=== PATIENT | male | born 1935 | race Asian ===

== ENCOUNTER 2018-06-17 13:13 | Inpatient (IN) | payer MEDICARE, MEDICAID ==
[~2018-06-17] VITALS: Ht 167.6 cm; Wt 68.0 kg
[2018-06-17 14:18] LABS: BASOPHILS % (AUTO) 0.5 % (0.0-2.0); EOSINOPHILS % (AUTO) 0.1 % (0.0-3.0); HEMATOCRIT 32.8 % (42.0-52.0); LYMPHOCYTES % (AUTO) 9.9 % (20.0-45.0); MEAN CORPUSCULAR VOLUME 93 FL (80-99); MONOCYTES % (AUTO) 6.6 % (1.0-10.0); NEUTROPHILS % (AUTO) 82.9 % (45.0-75.0); PLATELET COUNT 364 K/UL (150-450); RED BLOOD COUNT 3.53 M/UL (4.70-6.10); RED CELL DISTRIBUTION WIDTH 11.6 % (11.6-14.8); WHITE BLOOD COUNT 12.7 K/UL (4.8-10.8)
[2018-06-17 14:21] LABS: APPEARANCE,URINE SLIGHTLY CLOUDY; BILIRUBIN, URINE NEGATIVE (NEGATIVE); COLOR,URINE PALE YELLOW; GLUCOSE, URINE (UA) NEGATIVE (NEGATIVE); KETONES,URINE NEGATIVE (NEGATIVE); LEUKOCYTE ESTERASE ,URINE 3+ (NEGATIVE); NITRITE,URINE NEGATIVE (NEGATIVE); PH,URINE 6 (4.5-8.0); PROTEIN,URINE 3+ (NEGATIVE); UROBILINOGEN,URINE NORMAL MG/DL (0.0-1.0)
[2018-06-17 14:28] VITALS: BP 111/52
[2018-06-17 14:29] LABS: INR 1.2 (0.9-1.1)
--- NOTE | 2018-06-17 14:41 | Diagnostic Imaging Report ---
Indications: Syncope Technique: Spiral acquisitions obtained through the brain. Angled axial and coronal 5 x 5 mm slices were reconstructed. Total dose length product 1488.23 mGycm. CTDI vol(s) 70.38 mGy. Dose reduction achieved using automated exposure control Comparison: None. Findings: There is marked age-related enlargement of the ventricles and extra-axial CSF spaces. There is extensive periventricular deep white matter low-attenuation, consistent with chronic deep white matter ischemic change. No acute intracranial hemorrhage nor edema. No mass effect or midline shift. Visualized orbits and sinuses are unremarkable Impression: Chronic and age-related changes. Negative for acute intracranial bleed or mass effect The CT scanner at [facility] is accredited by the [employer] and the scans are performed using protocols designed to limit radiation exposure to as low as reasonably achievable to attain images of sufficient resolution adequate for diagnostic evaluation.
[2018-06-17 14:44] LABS: ALANINE AMINOTRANSFERASE 42 U/L (12-78); ALBUMIN 2.6 G/DL (3.4-5.0); ALBUMIN/GLOBULIN RATIO 0.5 (1.0-2.7); ALKALINE PHOSPHATASE 77 U/L (46-116); ANION GAP 12 mmol/L (5-15); ASPARTATE AMINO TRANSFERASE 38 U/L (15-37); BILIRUBIN,TOTAL 0.5 MG/DL (0.2-1.0); BLOOD UREA NITROGEN 76 mg/dL (7-18); CALCIUM 9.3 MG/DL (8.5-10.1); CARBON DIOXIDE 26 MMOL/L (21-32); CHLORIDE 101 MMOL/L (98-107); CKMB 1.9 NG/ML (0.0-3.6); CREATINE KINASE 112 U/L (26-308); CREATININE 2.3 MG/DL (0.55-1.30); POTASSIUM 2.8 MMOL/L (3.5-5.1); SODIUM 139 MMOL/L (136-145)
[2018-06-17] MEDS ORDERED: Meropenem 1 GM in NS 55 ML IVPB ONE (14:45)
[2018-06-17] MEDS ORDERED: cefTRIAXone 1 GM in NS 55 ML IVPB ONE (14:45)
[2018-06-17] MEDS ORDERED: POTASSIUM CHLO10 ME2 PO (15:18)
[2018-06-17] MEDS ORDERED: HYZAAR 100-12.1 EACH ORAL (15:18)
[2018-06-17] MEDS ORDERED: ISOSORBIDE MONO30 M1 PO (15:18)
[2018-06-17] MEDS ORDERED: ACETAMINOPHEN-1 EAC1 ORAL (15:18)
[2018-06-17] MEDS ORDERED: AMLODIPINE BESYL5 MG ORAL (15:18)
[2018-06-17] MEDS ORDERED: ABILIFY2 MG ORAL (15:18)
[2018-06-17] MEDS ORDERED: ATORVASTATIN CA20 MG ORAL (15:18)
[2018-06-17] MEDS ORDERED: FUROSEMIDE40 MG ORAL (15:18)
--- NOTE | 2018-06-17 15:24 | Emergency Room Report ---
History of Present Illness General Chief Complaint: Syncope Source: Patient, Medical Record, EMS Present Illness HPI This patient presents from a [facility]. Per EMS he had a syncopal episode at the [facility] facility. The patient himself has no specific complaints. He denies pain. He is alert but has dementia and is a very poor historian. Allergies: Coded Allergies: No Known Allergies (Unverified , 06/17/18) Patient History Past Medical History: see triage record, old chart reviewed, HTN, AFib, CVA/TIA , dementia Social History: Denies: smoking, alcohol use, drug use Reviewed Nursing Documentation: PMH: Agreed; PSxH: Agreed Nursing Documentation-PMH Hx Cardiac Problems: Yes - A-fib, hyperlipidemia Hx Hypertension: Yes Hx Neurological Problems: Yes - dementia Hx Cerebrovascular Accident: Yes - TIA Review of Systems All Other Systems: negative except mentioned in HPI Physical Exam Vital Signs Date Time Temp Pulse Resp B/P (MAP) Pulse Ox O2 Delivery O2 Flow Rate FiO2 06/17/18 13:15 98.2 68 14 82/54 97 Room Air 98.2 Sp02 EP Interpretation: reviewed, normal General Appearance: no apparent distress, alert, GCS 15, non-toxic, cachetic Head: normocephalic, atraumatic Eyes: bilateral eye normal inspection, bilateral eye PERRL ENT: hearing grossly normal, normal pharynx, no angioedema, normal voice Neck: full range of motion, supple/symm/no masses Respiratory: chest non-tender, lungs clear, normal breath sounds, no respiratory distress, no retraction, no accessory muscle use, speaking full sentences Cardiovascular #1: regular rate, rhythm, no edema Gastrointestinal: normal bowel sounds, non tender, soft, non-distended, no guarding, no rebound Rectal: deferred Musculoskeletal: back normal, normal range of motion, non-tender Neurologic: alert, responsive, motor strength/tone normal, sensory intact, speech normal, grossly normal Psychiatric: mood/affect normal, no suicidal/homicidal ideation Skin: warm/dry, well hydrated, other - See RN skin exam Medical Decision Making Diagnostic Impression: Primary Impression: Pyelonephritis Additional Impressions: Syncope Hypokalemia Lactic acid acidosis ER Course This frail elderly male had a syncopal episode and is found to have pyelonephritis. Given the patient's age and frailty, I felt that this patient should be admitted to the hospital for IV antibiotics. Initially, the patient' s blood pressure was low, however, this normalized with IV fluids. He is also given broad-spectrum antibiotics. CT of the head was unremarkable. He was found to have hypokalemia which is likely diet related. Troponin was in the indeterminate range. The patient is admitted for further evaluation, monitoring and treatment. Laboratory Tests Test 06/17/18 13:55 White Blood Count 12.7 K/UL (4.8-10.8) H Red Blood Count 3.53 M/UL (4.70-6.10) L Hemoglobin 11.0 G/DL (14.2-18.0) L Hematocrit 32.8 % (42.0-52.0) L Mean Corpuscular Volume 93 FL (80-99) Mean Corpuscular Hemoglobin 31.1 PG (27.0-31.0) H Mean Corpuscular Hemoglobin Concent 33.5 G/DL (32.0-36.0) Red Cell Distribution Width 11.6 % (11.6-14.8) Platelet Count 364 K/UL (150-450) Mean Platelet Volume 5.6 FL (6.5-10.1) L Neutrophils (%) (Auto) 82.9 % (45.0-75.0) H Lymphocytes (%) (Auto) 9.9 % (20.0-45.0) L Monocytes (%) (Auto) 6.6 % (1.0-10.0) Eosinophils (%) (Auto) 0.1 % (0.0-3.0) Basophils (%) (Auto) 0.5 % (0.0-2.0) Prothrombin Time 12.2 SEC (9.30-11.50) H Prothrombin Time INR 1.2 (0.9-1.1) H PTT 29 SEC (23-33) Urine Color Pale yellow Urine Appearance Slightly cloudy Urine pH 6 (4.5-8.0) Urine Specific [place] 1.010 (1.005-1.035) Urine Protein 3+ (NEGATIVE) H Urine Glucose (UA) Negative (NEGATIVE) Urine Ketones Negative (NEGATIVE) Urine Blood 5+ (NEGATIVE) H Urine Nitrite Negative (NEGATIVE) Urine Bilirubin Negative (NEGATIVE) Urine Urobilinogen Normal MG/DL (0.0-1.0) Urine Leukocyte Esterase 3+ (NEGATIVE) H Urine RBC 60-80 /HPF (0 - 0) H Urine WBC Tntc /HPF (0 - 0) H Urine Squamous Epithelial Cells Occasional /LPF Urine Bacteria Many /HPF (NONE) H Sodium Level 139 MMOL/L (136-145) Potassium Level 2.8 MMOL/L (3.5-5.1) L Chloride Level 101 MMOL/L (98-107) Carbon Dioxide Level 26 MMOL/L (21-32) Anion Gap 12 mmol/L (5-15) Blood Urea Nitrogen 76 mg/dL (7-18) H Creatinine 2.3 MG/DL (0.55-1.30) H Estimate Glomerular Filtration Rate mL/min (>60) Glucose Level 163 MG/DL (74-106) H Lactic Acid Level 2.30 mmol/L (0.4-2.0) H Calcium Level 9.3 MG/DL (8.5-10.1) Magnesium Level 2.0 MG/DL (1.8-2.4) Total Bilirubin 0.5 MG/DL (0.2-1.0) Aspartate Amino Transferase (AST) 38 U/L (15-37) H Alanine Aminotransferase (ALT) 42 U/L (12-78) Alkaline Phosphatase 77 U/L (46-116) Total Creatine Kinase 112 U/L (26-308) Creatine Kinase MB 1.9 NG/ML (0.0-3.6) Creatine Kinase MB Relative Index 1.6 Troponin I 0.014 ng/mL (0.000-0.056) Total Protein 7.8 G/DL (6.4-8.2) Albumin 2.6 G/DL (3.4-5.0) L Globulin 5.2 g/dL Albumin/Globulin Ratio 0.5 (1.0-2.7) L EKG Diagnostic Results Rate: normal Rhythm: NSR ST Segments: no acute changes Other Impression RBBB Rhythm Strip Diag. Results EP Interpretation: yes Rate: 60's Rhythm: NSR, no PVC's, no ectopy Chest X-Ray Diagnostic Results Chest X-Ray Diagnostic Results : Chest X-Ray Ordered: Yes # of Views/Limited/Complete: 1 View Indication: Other - syncope Interpretation: no consolidation, no effusion, no pneumothorax, no acute cardiopulmonary disease Impression: No acute disease Electronically Signed by: M.Colianno CT/MRI/US Diagnostic Results CT/MRI/US Diagnostic Results : Imaging Test Ordered: CT head Impression No acute findings. Specifically no intracranial bleed, mass effect or edema. See official report. Last Vital Signs Date Time Temp Pulse Resp B/P (MAP) Pulse Ox O2 Delivery O2 Flow Rate FiO2 06/17/18 14:28 98.2 73 14 111/52 98 Room Air 98.2 Status: improved Disposition: ADMITTED INPATIENT Condition: Serious Referrals: NON PHYSICIAN (PCP) Margareth Mackay DO Jun 17, 2018 15:24
--- NOTE | 2018-06-17 16:13 | Diagnostic Imaging Report ---
Indication: Shortness of breath Technique: One view of the chest Comparison: none Findings: No acute infiltrates, effusions, or congestion. Tortuous calcified aorta. Borderline enlarged heart size. Upper mediastinum unremarkable. Impression: No acute process. Borderline cardiomegaly
[2018-06-17 17:05] VITALS: BP 134/67
[2018-06-17] MEDS ORDERED: Morphine Sulfate 2mg/ml Inj IVP PRN (17:45)
[2018-06-17] MEDS ORDERED: LORazepam Inj 2mg/ml 1ml IV PRN (17:45)
[2018-06-17] MEDS ORDERED: Mylanta II UD 30ml ORAL PRN (17:45)
[2018-06-17] MEDS ORDERED: Albuterol/Ipratropium 3ml neb HHN PRN (17:45)
[2018-06-17] MEDS ORDERED: Nitroglycerin Subl 0.4mg tab SL PRN (17:45)
[2018-06-17] MEDS ORDERED: Miralax 17gm pkt ORAL PRN (17:45)
[2018-06-17 17:55] VITALS: BP 129/60
[2018-06-17 19:34] VITALS: BP_SYST 116; BP_SYST 142; BP_DIAS 72; BP_DIAS 84
[2018-06-17] MEDS: Atorvastatin 20mg tab ORAL SCH (20:52)
[2018-06-17] MEDS: Heparin 5000 units/ml inj SUBQ SCH (20:53)
--- NOTE | 2018-06-17 23:11 | Consultation ---
History of Present Illness General Chief Complaint: Syncope Present Illness HPI 83 yo male brought in from his halfway after an episode of syncope and was found to have UTI. the pt is a poor hx the pt is confused and has waxing and waning of consciousness. the pt has poor memory Allergies: Coded Allergies: No Known Allergies (Unverified , 06/17/18) Medication History Scheduled Amlodipine Besylate* (Amlodipine Besylate*), 5 MG ORAL DAILY, (Reported) Amoxicillin* (Amoxil*), 500 MG ORAL EVERY 8 HOURS Aripiprazole* (Abilify*), 2 MG ORAL DAILY, (Reported) Atorvastatin Calcium* (Atorvastatin Calcium*), 20 MG ORAL BEDTIME, (Reported) Furosemide* (Lasix*), 40 MG ORAL DAILY, (Reported) Isosorbide Mononitrate (Isosorbide Mononitrate Er), 30 MG PO DAILY, (Reported) Losartan/Hydrochlorothiazide 100-12.5 Tablet (Hyzaar 100-12.5 Tablet), 1 TAB ORAL DAILY, (Reported) Potassium Chloride (Potassium Chloride), 20 MEQ PO DAILY, (Reported) Scheduled PRN Acetaminophen With Codeine (T#3) (Tylenol #3 Tab*), 1 TAB ORAL Q6H PRN for For Pain, (Reported) Patient History Limited by: medical condition History Provided By: Patient, Medical Record Healthcare decision maker Resuscitation status Full Code Advanced Directive on File Review of Systems Psychiatric: Reports: prior hx, emotional problems, hallucinations Physical Exam General Appearance: no apparent distress, alert, confused, agitated Last 24 Hour Vital Signs Date Time Temp Pulse Resp B/P (MAP) Pulse Ox O2 Delivery O2 Flow Rate FiO2 06/17/18 22:59 Room Air 06/17/18 19:42 86 18 Room Air 21 06/17/18 19:34 97.7 78 18 116/72 (87) 99 97.7 06/17/18 18:07 Room Air 06/17/18 17:55 97.2 67 20 129/60 (83) 95 97.2 06/17/18 17:40 98.2 83 15 134/67 98 Room Air 98.2 06/17/18 17:05 98.2 83 15 134/67 98 Room Air 98.2 06/17/18 14:28 98.2 73 14 111/52 98 Room Air 98.2 06/17/18 13:15 98.2 68 14 82/54 97 Room Air 98.2 Laboratory Tests Test 06/17/18 13:55 06/17/18 16:20 White Blood Count 12.7 K/UL (4.8-10.8) H Red Blood Count 3.53 M/UL (4.70-6.10) L Hemoglobin 11.0 G/DL (14.2-18.0) L Hematocrit 32.8 % (42.0-52.0) L Mean Corpuscular Volume 93 FL (80-99) Mean Corpuscular Hemoglobin 31.1 PG (27.0-31.0) H Mean Corpuscular Hemoglobin Concent 33.5 G/DL (32.0-36.0) Red Cell Distribution Width 11.6 % (11.6-14.8) Platelet Count 364 K/UL (150-450) Mean Platelet Volume 5.6 FL (6.5-10.1) L Neutrophils (%) (Auto) 82.9 % (45.0-75.0) H Lymphocytes (%) (Auto) 9.9 % (20.0-45.0) L Monocytes (%) (Auto) 6.6 % (1.0-10.0) Eosinophils (%) (Auto) 0.1 % (0.0-3.0) Basophils (%) (Auto) 0.5 % (0.0-2.0) Prothrombin Time 12.2 SEC (9.30-11.50) H Prothromb Time International Ratio 1.2 (0.9-1.1) H Activated Partial Thromboplast Time 29 SEC (23-33) Urine Color Pale yellow Urine Appearance Slightly cloudy Urine pH 6 (4.5-8.0) Urine Specific [place] 1.010 (1.005-1.035) Urine Protein 3+ (NEGATIVE) H Urine Glucose (UA) Negative (NEGATIVE) Urine Ketones Negative (NEGATIVE) Urine Blood 5+ (NEGATIVE) H Urine Nitrite Negative (NEGATIVE) Urine Bilirubin Negative (NEGATIVE) Urine Urobilinogen Normal MG/DL (0.0-1.0) Urine Leukocyte Esterase 3+ (NEGATIVE) H Urine RBC 60-80 /HPF (0 - 0) H Urine WBC Tntc /HPF (0 - 0) H Urine Squamous Epithelial Cells Occasional /LPF Urine Bacteria Many /HPF (NONE) H Sodium Level 139 MMOL/L (136-145) Potassium Level 2.8 MMOL/L (3.5-5.1) L Chloride Level 101 MMOL/L (98-107) Carbon Dioxide Level 26 MMOL/L (21-32) Anion Gap 12 mmol/L (5-15) Blood Urea Nitrogen 76 mg/dL (7-18) H Creatinine 2.3 MG/DL (0.55-1.30) H Estimat Glomerular Filtration Rate mL/min (>60) Glucose Level 163 MG/DL (74-106) H Lactic Acid Level 2.30 mmol/L (0.4-2.0) H 1.40 mmol/L (0.66-2.22) Calcium Level 9.3 MG/DL (8.5-10.1) Magnesium Level 2.0 MG/DL (1.8-2.4) Total Bilirubin 0.5 MG/DL (0.2-1.0) Aspartate Amino Transf (AST/SGOT) 38 U/L (15-37) H Alanine Aminotransferase (ALT/SGPT) 42 U/L (12-78) Alkaline Phosphatase 77 U/L (46-116) Total Creatine Kinase 112 U/L (26-308) Creatine Kinase MB 1.9 NG/ML (0.0-3.6) Creatine Kinase MB Relative Index 1.6 Troponin I 0.014 ng/mL (0.000-0.056) Total Protein 7.8 G/DL (6.4-8.2) Albumin 2.6 G/DL (3.4-5.0) L Globulin 5.2 g/dL Albumin/Globulin Ratio 0.5 (1.0-2.7) L Height (Feet): 5 Height (Inches): 6.00 Weight (Pounds): 150 Medications Current Medications Medications (Trade) Dose Ordered Sig/Marleni Route PRN Reason Start Time Stop Time Status Last Admin Dose Admin Acetaminophen (Tylenol) 650 mg Q4H PRN ORAL fever (temp>100.5F) 06/17/18 17:45 07/17/18 17:44 Al Hydroxide/Mg Hydroxide (Mylanta II) 30 ml Q6H PRN ORAL dyspepsia 06/17/18 17:45 07/17/18 17:44 Albuterol/ Ipratropium (Albuterol/ Ipratropium) 3 ml Q4H PRN HHN Shortness of Breath 06/17/18 17:45 06/22/18 17:44 Amlodipine Besylate (Norvasc) 5 mg DAILY ORAL 06/18/18 09:00 07/18/18 08:59 Aripiprazole (Abilify) 2 mg DAILY ORAL 06/18/18 09:00 07/18/18 08:59 Atorvastatin Calcium (Lipitor) 20 mg BEDTIME ORAL 06/17/18 21:00 07/17/18 20:59 06/17/18 20:52 Clonidine HCl (Catapres Tab) 0.1 mg Q4H PRN ORAL For High Blood Pressure 06/17/18 17:45 07/17/18 17:44 Dextrose (Dextrose 50%) 25 ml STAT PRN IV Hypoglycemia 06/17/18 17:45 07/17/18 17:44 Dextrose (Dextrose 50%) 50 ml STAT PRN IV Hypoglycemia 06/17/18 17:45 07/17/18 17:44 Heparin Sodium (Porcine) (Heparin 5000 units/ml) 5,000 units EVERY 12 HOURS SUBQ 06/17/18 21:00 07/17/18 20:59 06/17/18 20:53 Isosorbide Mononitrate (Imdur) 30 mg DAILY ORAL 06/18/18 09:00 07/18/18 08:59 Lorazepam (Ativan 2mg/ml 1ml) 0.5 mg Q4H PRN IV For Anxiety 06/17/18 17:45 06/24/18 17:44 Morphine Sulfate (Morphine Sulfate) 1 mg Q4H PRN IVP For Pain 7-10 06/17/18 17:45 06/24/18 17:44 Nitroglycerin (Ntg) 0.4 mg Q5M X 3 DOSES PRN SL Prn Chest Pain 06/17/18 17:45 07/17/18 17:44 Ondansetron HCl (Zofran) 4 mg Q6H PRN IVP Nausea & Vomiting 06/17/18 17:45 07/17/18 17:44 Polyethylene Glycol (Miralax) 17 gm HSPRN PRN ORAL Constipation 06/17/18 17:45 07/17/18 17:44 Temazepam (Restoril) 15 mg HSPRN PRN ORAL Insomnia 06/17/18 17:45 06/24/18 17:44 06/17/18 20:52 Assessment/Plan Assessment/Plan 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
[2018-06-18 01:07] VITALS: BP 137/86
[2018-06-18 04:16] VITALS: BP 125/75
[2018-06-18 07:08] LABS: BASOPHILS % (AUTO) 0.4 % (0.0-2.0); EOSINOPHILS % (AUTO) 0.4 % (0.0-3.0); HEMATOCRIT 33.5 % (42.0-52.0); HEMOGLOBIN 11.4 G/DL (14.2-18.0); LYMPHOCYTES % (AUTO) 13.6 % (20.0-45.0); MEAN CORPUSCULAR VOLUME 93 FL (80-99); MONOCYTES % (AUTO) 6.6 % (1.0-10.0); NEUTROPHILS % (AUTO) 79.1 % (45.0-75.0); PLATELET COUNT 369 K/UL (150-450); RED BLOOD COUNT 3.59 M/UL (4.70-6.10); RED CELL DISTRIBUTION WIDTH 11.6 % (11.6-14.8); WHITE BLOOD COUNT 13.7 K/UL (4.8-10.8)
[2018-06-18 07:30] LABS: INR 1.1 (0.9-1.1)
[2018-06-18 07:49] LABS: ALANINE AMINOTRANSFERASE 45 U/L (12-78); ALBUMIN 2.5 G/DL (3.4-5.0); ALBUMIN/GLOBULIN RATIO 0.5 (1.0-2.7); ALKALINE PHOSPHATASE 78 U/L (46-116); ANION GAP 10 mmol/L (5-15); ASPARTATE AMINO TRANSFERASE 32 U/L (15-37); BILIRUBIN,TOTAL 0.4 MG/DL (0.2-1.0); BLOOD UREA NITROGEN 57 mg/dL (7-18); CALCIUM 9.1 MG/DL (8.5-10.1); CARBON DIOXIDE 28 MMOL/L (21-32); CHLORIDE 107 MMOL/L (98-107); CHOLESTEROL 107 MG/DL (< 200); CREATININE 1.7 MG/DL (0.55-1.30); HDL CHOLESTEROL 28 MG/DL (40-60); POTASSIUM 2.9 MMOL/L (3.5-5.1); SODIUM 144 MMOL/L (136-145); TRIGLYCERIDES 92 MG/DL (30-150)
[2018-06-18 08:00] VITALS: BP 120/74
[2018-06-18] MEDS: Imdur 30mg tab ORAL SCH (08:19)
[2018-06-18] MEDS: ARIPiprazole 2mg tab ORAL SCH (08:19)
[2018-06-18] MEDS: Heparin 5000 units/ml inj SUBQ SCH ×2 (08:20→21:45)
--- NOTE | 2018-06-18 11:35 | Consultation ---
History of Present Illness General Date patient seen: Jun 18, 2018 Chief Complaint: Syncope Present Illness HPI 83 year old male with hx of HTN, AFib, CVA/TIA, dementia, from an assisted living presented to [facility] with [facility] of syncopal episode at the facility. The patient himself has no specific complaints. He denies pain. He is alert but has dementia and is a very poor historian. He was in renal failure and leukocytosis as well. Allergies: Coded Allergies: No Known Allergies (Unverified , 06/17/18) Medication History Scheduled Amlodipine Besylate* (Amlodipine Besylate*), 5 MG ORAL DAILY, (Reported) Aripiprazole* (Abilify*), 2 MG ORAL DAILY, (Reported) Atorvastatin Calcium* (Atorvastatin Calcium*), 20 MG ORAL BEDTIME, (Reported) Furosemide* (Lasix*), 40 MG ORAL DAILY, (Reported) Isosorbide Mononitrate (Isosorbide Mononitrate Er), 30 MG PO DAILY, (Reported) Losartan/Hydrochlorothiazide 100-12.5 Tablet (Hyzaar 100-12.5 Tablet), 1 TAB ORAL DAILY, (Reported) Potassium Chloride (Potassium Chloride), 20 MEQ PO DAILY, (Reported) Scheduled PRN Acetaminophen With Codeine (T#3) (Tylenol #3 Tab*), 1 TAB ORAL Q6H PRN for For Pain, (Reported) Patient History Healthcare decision maker Resuscitation status Full Code Advanced Directive on File Past Medical/Surgical History Past Medical/Surgical History: (1) Hypertension (2) Dementia (3) CVA (cerebral vascular accident) Review of Systems Constitutional: Reports: malaise, weakness ENT: Reports: no symptoms Physical Exam General Appearance: cachetic Lines, tubes and drains: peripheral HEENT: normocephalic, atraumatic Neck: non-tender, normal alignment Respiratory/Chest: chest wall non-tender, lungs clear Cardiovascular/Chest: normal peripheral pulses Abdomen: normal bowel sounds Genitourinary/Rectal: normal genital exam, normal rectal exam Skin Exam: normal pigmentation 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 Last 24 Hour Vital Signs Date Time Temp Pulse Resp B/P (MAP) Pulse Ox O2 Delivery O2 Flow Rate FiO2 06/18/18 09:00 Room Air 06/18/18 08:19 120/74 06/18/18 08:19 79 120/74 06/18/18 08:00 97.5 79 20 120/74 (89) 99 97.5 06/18/18 08:00 69 06/18/18 04:16 98.0 60 18 125/75 (92) 98 98.0 06/18/18 03:51 69 06/18/18 01:07 97.0 60 18 137/86 (103) 98 97.0 06/17/18 23:35 68 06/17/18 22:59 Room Air 06/17/18 19:46 82 06/17/18 19:42 86 18 Room Air 21 06/17/18 19:34 97.7 78 18 116/72 (87) 99 97.7 06/17/18 18:07 Room Air 06/17/18 17:55 97.2 67 20 129/60 (83) 95 97.2 06/17/18 17:40 98.2 83 15 134/67 98 Room Air 98.2 06/17/18 17:05 98.2 83 15 134/67 98 Room Air 98.2 06/17/18 14:28 98.2 73 14 111/52 98 Room Air 98.2 06/17/18 13:15 98.2 68 14 82/54 97 Room Air 98.2 Intake and Output 06/17/18 06/18/18 19:00 07:00 Intake Total 175 ml Balance 175 ml Intake Oral 120 ml IV Total 55 ml # Voids 1 Laboratory Tests Test 06/17/18 13:55 06/17/18 16:20 06/18/18 06:23 White Blood Count 12.7 K/UL (4.8-10.8) H 13.7 K/UL (4.8-10.8) H Red Blood Count 3.53 M/UL (4.70-6.10) L 3.59 M/UL (4.70-6.10) L Hemoglobin 11.0 G/DL (14.2-18.0) L 11.4 G/DL (14.2-18.0) L Hematocrit 32.8 % (42.0-52.0) L 33.5 % (42.0-52.0) L Mean Corpuscular Volume 93 FL (80-99) 93 FL (80-99) Mean Corpuscular Hemoglobin 31.1 PG (27.0-31.0) H 31.9 PG (27.0-31.0) H Mean Corpuscular Hemoglobin Concent 33.5 G/DL (32.0-36.0) 34.2 G/DL (32.0-36.0) Red Cell Distribution Width 11.6 % (11.6-14.8) 11.6 % (11.6-14.8) Platelet Count 364 K/UL (150-450) 369 K/UL (150-450) Mean Platelet Volume 5.6 FL (6.5-10.1) L 5.6 FL (6.5-10.1) L Neutrophils (%) (Auto) 82.9 % (45.0-75.0) H 79.1 % (45.0-75.0) H Lymphocytes (%) (Auto) 9.9 % (20.0-45.0) L 13.6 % (20.0-45.0) L Monocytes (%) (Auto) 6.6 % (1.0-10.0) 6.6 % (1.0-10.0) Eosinophils (%) (Auto) 0.1 % (0.0-3.0) 0.4 % (0.0-3.0) Basophils (%) (Auto) 0.5 % (0.0-2.0) 0.4 % (0.0-2.0) Prothrombin Time 12.2 SEC (9.30-11.50) H 11.9 SEC (9.30-11.50) H Prothromb Time International Ratio 1.2 (0.9-1.1) H 1.1 (0.9-1.1) Activated Partial Thromboplast Time 29 SEC (23-33) 30 SEC (23-33) Urine Color Pale yellow Urine Appearance Slightly cloudy Urine pH 6 (4.5-8.0) Urine Specific [place] 1.010 (1.005-1.035) Urine Protein 3+ (NEGATIVE) H Urine Glucose (UA) Negative (NEGATIVE) Urine Ketones Negative (NEGATIVE) Urine Blood 5+ (NEGATIVE) H Urine Nitrite Negative (NEGATIVE) Urine Bilirubin Negative (NEGATIVE) Urine Urobilinogen Normal MG/DL (0.0-1.0) Urine Leukocyte Esterase 3+ (NEGATIVE) H Urine RBC 60-80 /HPF (0 - 0) H Urine WBC Tntc /HPF (0 - 0) H Urine Squamous Epithelial Cells Occasional /LPF Urine Bacteria Many /HPF (NONE) H Sodium Level 139 MMOL/L (136-145) 144 MMOL/L (136-145) Potassium Level 2.8 MMOL/L (3.5-5.1) L 2.9 MMOL/L (3.5-5.1) L Chloride Level 101 MMOL/L (98-107) 107 MMOL/L (98-107) Carbon Dioxide Level 26 MMOL/L (21-32) 28 MMOL/L (21-32) Anion Gap 12 mmol/L (5-15) 10 mmol/L (5-15) Blood Urea Nitrogen 76 mg/dL (7-18) H 57 mg/dL (7-18) H Creatinine 2.3 MG/DL (0.55-1.30) H 1.7 MG/DL (0.55-1.30) H Estimat Glomerular Filtration Rate mL/min (>60) mL/min (>60) Glucose Level 163 MG/DL (74-106) H 114 MG/DL (74-106) H Lactic Acid Level 2.30 mmol/L (0.4-2.0) H 1.40 mmol/L (0.66-2.22) Calcium Level 9.3 MG/DL (8.5-10.1) 9.1 MG/DL (8.5-10.1) Magnesium Level 2.0 MG/DL (1.8-2.4) Total Bilirubin 0.5 MG/DL (0.2-1.0) 0.4 MG/DL (0.2-1.0) Aspartate Amino Transf (AST/SGOT) 38 U/L (15-37) H 32 U/L (15-37) Alanine Aminotransferase (ALT/SGPT) 42 U/L (12-78) 45 U/L (12-78) Alkaline Phosphatase 77 U/L (46-116) 78 U/L (46-116) Total Creatine Kinase 112 U/L (26-308) Creatine Kinase MB 1.9 NG/ML (0.0-3.6) Creatine Kinase MB Relative Index 1.6 Troponin I 0.014 ng/mL (0.000-0.056) Total Protein 7.8 G/DL (6.4-8.2) 7.9 G/DL (6.4-8.2) Albumin 2.6 G/DL (3.4-5.0) L 2.5 G/DL (3.4-5.0) L Globulin 5.2 g/dL 5.4 g/dL Albumin/Globulin Ratio 0.5 (1.0-2.7) L 0.5 (1.0-2.7) L Triglycerides Level 92 MG/DL (30-150) Cholesterol Level 107 MG/DL (< 200) LDL Cholesterol 66 mg/dL (<100) HDL Cholesterol 28 MG/DL (40-60) L Cholesterol/HDL Ratio 3.8 (3.3-4.4) Thyroid Stimulating Hormone (TSH) 0.953 uiU/mL (0.358-3.740) Microbiology Date/Time Source Procedure Growth Status 06/17/18 13:55 Urine,Clean Catch Urine Culture - Preliminary Gram Negative Bacillus 1 Resulted Height (Feet): 5 Height (Inches): 6.00 Weight (Pounds): 150 Medications Current Medications Medications (Trade) Dose Ordered Sig/Marleni Route PRN Reason Start Time Stop Time Status Last Admin Dose Admin Acetaminophen (Tylenol) 650 mg Q4H PRN ORAL fever (temp>100.5F) 06/17/18 17:45 07/17/18 17:44 Al Hydroxide/Mg Hydroxide (Mylanta II) 30 ml Q6H PRN ORAL dyspepsia 06/17/18 17:45 07/17/18 17:44 Albuterol/ Ipratropium (Albuterol/ Ipratropium) 3 ml Q4H PRN HHN Shortness of Breath 06/17/18 17:45 06/22/18 17:44 Amlodipine Besylate (Norvasc) 5 mg DAILY ORAL 06/18/18 09:00 07/18/18 08:59 06/18/18 08:19 Aripiprazole (Abilify) 2 mg DAILY ORAL 06/18/18 09:00 07/18/18 08:59 06/18/18 08:19 Atorvastatin Calcium (Lipitor) 20 mg BEDTIME ORAL 06/17/18 21:00 07/17/18 20:59 06/17/18 20:52 Clonidine HCl (Catapres Tab) 0.1 mg Q4H PRN ORAL For High Blood Pressure 06/17/18 17:45 07/17/18 17:44 Dextrose (Dextrose 50%) 25 ml STAT PRN IV Hypoglycemia 06/17/18 17:45 07/17/18 17:44 Dextrose (Dextrose 50%) 50 ml STAT PRN IV Hypoglycemia 06/17/18 17:45 07/17/18 17:44 Heparin Sodium (Porcine) (Heparin 5000 units/ml) 5,000 units EVERY 12 HOURS SUBQ 06/17/18 21:00 07/17/18 20:59 06/18/18 08:20 Isosorbide Mononitrate (Imdur) 30 mg DAILY ORAL 06/18/18 09:00 07/18/18 08:59 06/18/18 08:19 Lorazepam (Ativan 2mg/ml 1ml) 0.5 mg Q4H PRN IV For Anxiety 06/17/18 17:45 06/24/18 17:44 Morphine Sulfate (Morphine Sulfate) 1 mg Q4H PRN IVP For Pain 7-06/17/18 17:45 06/24/18 17:44 Nitroglycerin (Ntg) 0.4 mg Q5M X 3 DOSES PRN SL Prn Chest Pain 06/17/18 17:45 07/17/18 17:44 Ondansetron HCl (Zofran) 4 mg Q6H PRN IVP Nausea & Vomiting 06/17/18 17:45 07/17/18 17:44 Polyethylene Glycol (Miralax) 17 gm HSPRN PRN ORAL Constipation 06/17/18 17:45 07/17/18 17:44 Temazepam (Restoril) 15 mg HSPRN PRN ORAL Insomnia 06/17/18 17:45 06/24/18 17:44 06/17/18 20:52 Assessment/Plan Problem List: (1) Pyelonephritis ICD Codes: N12 - Tubulo-interstitial nephritis, not specified as acute or chronic SNOMED: 93437648 (2) Dehydration ICD Codes: E86.0 - Dehydration SNOMED: 83940619 (3) CVA (cerebral vascular accident) ICD Codes: I63.9 - Cerebral infarction, unspecified SNOMED: 278522888 (4) Hypokalemia ICD Codes: E87.6 - Hypokalemia SNOMED: 53781013 (5) Dementia ICD Codes: F03.90 - Unspecified dementia without behavioral disturbance SNOMED: 84614331 (6) Hypertension ICD Codes: I10 - Essential (primary) hypertension SNOMED: 89233577 Assessment/Plan iv hydration iv abx check urine cultures k supplement check electrolytes one more time today ID evaluation dvt prophylaxis swallow study Jose Rooney MD Jun 18, 2018 11:35
[2018-06-18 12:00] VITALS: BP 113/61
--- NOTE | 2018-06-18 12:45 | Consultation ---
History of Present Illness General Date patient seen: Jun 18, 2018 Chief Complaint: Syncope Reason for Consultation: UTI Present Illness HPI Mr. Batista is a 83 yo male brought in from his custodial after an episode of syncope and was found to have UTI. Patient reports no complaints and denies Dysuria and Fever but is a poor historian. Majority of history was obtained from the chart. In the ED he was afebrile but had leukocytosis and a positive UA. ID was consulted for UTI. PMHx/ PSHx HTN A.fib CVA Dementia SocHx No E/T/D FamHx Non- contributory Allergies: Coded Allergies: No Known Allergies (Unverified , 06/17/18) Medication History Scheduled Amlodipine Besylate* (Amlodipine Besylate*), 5 MG ORAL DAILY, (Reported) Aripiprazole* (Abilify*), 2 MG ORAL DAILY, (Reported) Atorvastatin Calcium* (Atorvastatin Calcium*), 20 MG ORAL BEDTIME, (Reported) Furosemide* (Lasix*), 40 MG ORAL DAILY, (Reported) Isosorbide Mononitrate (Isosorbide Mononitrate Er), 30 MG PO DAILY, (Reported) Losartan/Hydrochlorothiazide 100-12.5 Tablet (Hyzaar 100-12.5 Tablet), 1 TAB ORAL DAILY, (Reported) Potassium Chloride (Potassium Chloride), 20 MEQ PO DAILY, (Reported) Scheduled PRN Acetaminophen With Codeine (T#3) (Tylenol #3 Tab*), 1 TAB ORAL Q6H PRN for For Pain, (Reported) Patient History Healthcare decision maker Resuscitation status Full Code Advanced Directive on File Review of Systems All Other Systems: negative except mentioned in HPI ROS Narrative Unable to fully obtain as patient with AMS. Physical Exam Last 24 Hour Vital Signs Date Time Temp Pulse Resp B/P (MAP) Pulse Ox O2 Delivery O2 Flow Rate FiO2 06/18/18 12:00 97.2 73 20 113/61 (78) 99 97.2 06/18/18 09:00 Room Air 06/18/18 08:19 120/74 06/18/18 08:19 79 120/74 06/18/18 08:00 97.5 79 20 120/74 (89) 99 97.5 06/18/18 08:00 69 06/18/18 04:16 98.0 60 18 125/75 (92) 98 98.0 06/18/18 03:51 69 06/18/18 01:07 97.0 60 18 137/86 (103) 98 97.0 06/17/18 23:35 68 06/17/18 22:59 Room Air 06/17/18 19:46 82 06/17/18 19:42 86 18 Room Air 21 06/17/18 19:34 97.7 78 18 116/72 (87) 99 97.7 06/17/18 18:07 Room Air 06/17/18 17:55 97.2 67 20 129/60 (83) 95 97.2 06/17/18 17:40 98.2 83 15 134/67 98 Room Air 98.2 06/17/18 17:05 98.2 83 15 134/67 98 Room Air 98.2 06/17/18 14:28 98.2 73 14 111/52 98 Room Air 98.2 06/17/18 13:15 98.2 68 14 82/54 97 Room Air 98.2 Intake and Output 06/17/18 06/18/18 18:59 06:59 Intake Total 55 ml 120 ml Balance 55 ml 120 ml Intake Oral 120 ml IV Total 55 ml # Voids 1 Laboratory Tests Test 06/17/18 13:55 06/17/18 16:20 06/18/18 06:23 White Blood Count 12.7 K/UL (4.8-10.8) H 13.7 K/UL (4.8-10.8) H Red Blood Count 3.53 M/UL (4.70-6.10) L 3.59 M/UL (4.70-6.10) L Hemoglobin 11.0 G/DL (14.2-18.0) L 11.4 G/DL (14.2-18.0) L Hematocrit 32.8 % (42.0-52.0) L 33.5 % (42.0-52.0) L Mean Corpuscular Volume 93 FL (80-99) 93 FL (80-99) Mean Corpuscular Hemoglobin 31.1 PG (27.0-31.0) H 31.9 PG (27.0-31.0) H Mean Corpuscular Hemoglobin Concent 33.5 G/DL (32.0-36.0) 34.2 G/DL (32.0-36.0) Red Cell Distribution Width 11.6 % (11.6-14.8) 11.6 % (11.6-14.8) Platelet Count 364 K/UL (150-450) 369 K/UL (150-450) Mean Platelet Volume 5.6 FL (6.5-10.1) L 5.6 FL (6.5-10.1) L Neutrophils (%) (Auto) 82.9 % (45.0-75.0) H 79.1 % (45.0-75.0) H Lymphocytes (%) (Auto) 9.9 % (20.0-45.0) L 13.6 % (20.0-45.0) L Monocytes (%) (Auto) 6.6 % (1.0-10.0) 6.6 % (1.0-10.0) Eosinophils (%) (Auto) 0.1 % (0.0-3.0) 0.4 % (0.0-3.0) Basophils (%) (Auto) 0.5 % (0.0-2.0) 0.4 % (0.0-2.0) Prothrombin Time 12.2 SEC (9.30-11.50) H 11.9 SEC (9.30-11.50) H Prothromb Time International Ratio 1.2 (0.9-1.1) H 1.1 (0.9-1.1) Activated Partial Thromboplast Time 29 SEC (23-33) 30 SEC (23-33) Urine Color Pale yellow Urine Appearance Slightly cloudy Urine pH 6 (4.5-8.0) Urine Specific [place] 1.010 (1.005-1.035) Urine Protein 3+ (NEGATIVE) H Urine Glucose (UA) Negative (NEGATIVE) Urine Ketones Negative (NEGATIVE) Urine Blood 5+ (NEGATIVE) H Urine Nitrite Negative (NEGATIVE) Urine Bilirubin Negative (NEGATIVE) Urine Urobilinogen Normal MG/DL (0.0-1.0) Urine Leukocyte Esterase 3+ (NEGATIVE) H Urine RBC 60-80 /HPF (0 - 0) H Urine WBC Tntc /HPF (0 - 0) H Urine Squamous Epithelial Cells Occasional /LPF Urine Bacteria Many /HPF (NONE) H Sodium Level 139 MMOL/L (136-145) 144 MMOL/L (136-145) Potassium Level 2.8 MMOL/L (3.5-5.1) L 2.9 MMOL/L (3.5-5.1) L Chloride Level 101 MMOL/L (98-107) 107 MMOL/L (98-107) Carbon Dioxide Level 26 MMOL/L (21-32) 28 MMOL/L (21-32) Anion Gap 12 mmol/L (5-15) 10 mmol/L (5-15) Blood Urea Nitrogen 76 mg/dL (7-18) H 57 mg/dL (7-18) H Creatinine 2.3 MG/DL (0.55-1.30) H 1.7 MG/DL (0.55-1.30) H Estimat Glomerular Filtration Rate mL/min (>60) mL/min (>60) Glucose Level 163 MG/DL (74-106) H 114 MG/DL (74-106) H Lactic Acid Level 2.30 mmol/L (0.4-2.0) H 1.40 mmol/L (0.66-2.22) Calcium Level 9.3 MG/DL (8.5-10.1) 9.1 MG/DL (8.5-10.1) Magnesium Level 2.0 MG/DL (1.8-2.4) Total Bilirubin 0.5 MG/DL (0.2-1.0) 0.4 MG/DL (0.2-1.0) Aspartate Amino Transf (AST/SGOT) 38 U/L (15-37) H 32 U/L (15-37) Alanine Aminotransferase (ALT/SGPT) 42 U/L (12-78) 45 U/L (12-78) Alkaline Phosphatase 77 U/L (46-116) 78 U/L (46-116) Total Creatine Kinase 112 U/L (26-308) Creatine Kinase MB 1.9 NG/ML (0.0-3.6) Creatine Kinase MB Relative Index 1.6 Troponin I 0.014 ng/mL (0.000-0.056) Total Protein 7.8 G/DL (6.4-8.2) 7.9 G/DL (6.4-8.2) Albumin 2.6 G/DL (3.4-5.0) L 2.5 G/DL (3.4-5.0) L Globulin 5.2 g/dL 5.4 g/dL Albumin/Globulin Ratio 0.5 (1.0-2.7) L 0.5 (1.0-2.7) L Triglycerides Level 92 MG/DL (30-150) Cholesterol Level 107 MG/DL (< 200) LDL Cholesterol 66 mg/dL (<100) HDL Cholesterol 28 MG/DL (40-60) L Cholesterol/HDL Ratio 3.8 (3.3-4.4) Thyroid Stimulating Hormone (TSH) 0.953 uiU/mL (0.358-3.740) Microbiology Date/Time Source Procedure Growth Status 06/17/18 13:55 Urine,Clean Catch Urine Culture - Preliminary Gram Negative Bacillus 1 Resulted Height (Feet): 5 Height (Inches): 6.00 Weight (Pounds): 150 Medications Current Medications Medications (Trade) Dose Ordered Sig/Marleni Route PRN Reason Start Time Stop Time Status Last Admin Dose Admin Acetaminophen (Tylenol) 650 mg Q4H PRN ORAL fever (temp>100.5F) 06/17/18 17:45 07/17/18 17:44 Al Hydroxide/Mg Hydroxide (Mylanta II) 30 ml Q6H PRN ORAL dyspepsia 06/17/18 17:45 07/17/18 17:44 Albuterol/ Ipratropium (Albuterol/ Ipratropium) 3 ml Q4H PRN HHN Shortness of Breath 06/17/18 17:45 06/22/18 17:44 Amlodipine Besylate (Norvasc) 5 mg DAILY ORAL 06/18/18 09:00 07/18/18 08:59 06/18/18 08:19 Aripiprazole (Abilify) 2 mg DAILY ORAL 06/18/18 09:00 07/18/18 08:59 06/18/18 08:19 Atorvastatin Calcium (Lipitor) 20 mg BEDTIME ORAL 06/17/18 21:00 07/17/18 20:59 06/17/18 20:52 Clonidine HCl (Catapres Tab) 0.1 mg Q4H PRN ORAL For High Blood Pressure 06/17/18 17:45 07/17/18 17:44 Dextrose (Dextrose 50%) 25 ml STAT PRN IV Hypoglycemia 06/17/18 17:45 07/17/18 17:44 Dextrose (Dextrose 50%) 50 ml STAT PRN IV Hypoglycemia 06/17/18 17:45 07/17/18 17:44 Heparin Sodium (Porcine) (Heparin 5000 units/ml) 5,000 units EVERY 12 HOURS SUBQ 06/17/18 21:00 07/17/18 20:59 06/18/18 08:20 Isosorbide Mononitrate (Imdur) 30 mg DAILY ORAL 06/18/18 09:00 07/18/18 08:59 06/18/18 08:19 Lorazepam (Ativan 2mg/ml 1ml) 0.5 mg Q4H PRN IV For Anxiety 06/17/18 17:45 06/24/18 17:44 Morphine Sulfate (Morphine Sulfate) 1 mg Q4H PRN IVP For Pain 7-10 06/17/18 17:45 06/24/18 17:44 Nitroglycerin (Ntg) 0.4 mg Q5M X 3 DOSES PRN SL Prn Chest Pain 06/17/18 17:45 07/17/18 17:44 Ondansetron HCl (Zofran) 4 mg Q6H PRN IVP Nausea & Vomiting 06/17/18 17:45 07/17/18 17:44 Piperacillin Sod/ Tazobactam Sod 3.375 gm/Sodium Chloride 110 ml @ 27 mls/hr EVERY 8 HOURS IVPB 06/18/18 14:00 06/25/18 13:59 Polyethylene Glycol (Miralax) 17 gm HSPRN PRN ORAL Constipation 06/17/18 17:45 07/17/18 17:44 Potassium Chloride 40 meq/ Sodium Chloride 570 ml @ 142.5 mls/ hr ONCE IVPB 06/18/18 13:00 06/18/18 15:00 Sodium Chloride 1,000 ml @ 150 mls/hr Q6H40M IV 06/18/18 13:00 07/18/18 12:59 Sodium Chloride 1,000 ml @ 999 mls/hr Q1H1M IV 06/18/18 12:00 06/18/18 13:00 06/18/18 11:46 Temazepam (Restoril) 15 mg HSPRN PRN ORAL Insomnia 06/17/18 17:45 06/24/18 17:44 06/17/18 20:52 Objective Narrative Gen: NAD,thin male, alert and cooperative HEENT: NCAT, MMM, EOMI, PERRL, No Oral lesion, no scleral icterus NECK: full range of motion, supple, no meningismus, No LAD, No JVD LUNGS: CTAB, No W/C, No Accessory muscle use CARDS: RRR, S1, S2, No M/R/G ABD: Soft, NT, ND, No R/G, + BS, No HSM, No Masses, No CVA or suprapubic tenderness : Deferred Ext: C/C/E, Pulses 2+ B/L (DP, Rad): NEURO: A/O x 1 (Name only) confused, Strength grossly weak PSYCH: mood/affect normal SKIN:~ warm/dry, No rashes, Assessment/Plan Assessment/Plan 83 yo male brought in from his custodial after an episode of syncope and was found to have UTI. UTI Pos UA and leukocytosis 06/17/18 UCx GNR 06/17/18 BCx NGTD HTN A.fib CVA Dementia PLAN: Continue Zosyn #1/7 pending cultures f/u Urine Cx Monitor CBC and temps Thank you for this consult. We will continue to follow the patient during this hospitalization. Serg Cuellar MD Jun 18, 2018 12:45
[2018-06-18] MEDS ORDERED: Potassium Chloride 40 MEQ in Sodium Chloride 500ML 550 ML IVPB SCH (13:00)
[2018-06-18] MEDS: Piperacillin/Tazobactam 3.375 GM in NS 110 ML IVPB SCH ×2 (13:53→21:44)
[2018-06-18 16:00] VITALS: BP 153/98
--- NOTE | 2018-06-18 16:18 | History & Physical ---
History and Physical History & Physicial Trenton Brantley MD Jun 18, 2018 16:18
[2018-06-18 19:32] LABS: ANION GAP 11 mmol/L (5-15); BLOOD UREA NITROGEN 49 mg/dL (7-18); CALCIUM 8.5 MG/DL (8.5-10.1); CARBON DIOXIDE 26 MMOL/L (21-32); CHLORIDE 109 MMOL/L (98-107); CREATININE 1.6 MG/DL (0.55-1.30); POTASSIUM 4.2 MMOL/L (3.5-5.1); SODIUM 146 MMOL/L (136-145)
[2018-06-18 20:00] VITALS: BP 139/69
--- NOTE | 2018-06-18 21:00 | History and Physical Report ---
DATE OF ADMISSION: 06/17/2018 CHIEF COMPLAINT: 1. Altered mental status. 2. Syncope. HISTORY OF PRESENT ILLNESS: This is a 83-year-old gentleman with past medical history significant for hypertension, atrial fibrillation, prior history of CVA, TIA, dementia who presented to the hospital from a skilled nurse facility after he was found to have syncopal episode. The patient become altered and weak. EMS was called in. The patient subsequently was transferred to the hospital. Shortly after initial evaluation in the emergency, the patient was admitted to the hospital with acute dehydration, acute kidney injury as well as acute urinary tract infection and hypokalemia. PAST MEDICAL HISTORY AND PAST SURGICAL HISTORY: As above, history of hypertension, atrial fibrillation, CVA, TIA, dementia, dyslipidemia. History is very limited due to the patient's mental status. History mostly taken from the ER chart. MEDICATIONS: At home, please refer to medication reconciliation. ALLERGIES: No known drug allergies. SOCIAL HISTORY: The patient is a long-term facility residing. No smoking, alcohol, or drugs. FAMILY HISTORY: Noncontributory. REVIEW OF SYSTEMS: Limited secondary to patient's status. Denies any chest pain or shortness of breath. Denies any hemoptysis. Denies any bright red blood per rectum. Complained of weakness and fatigue. PHYSICAL EXAMINATION: VITAL SIGNS: On admission, temperature 98.2, pulse of 68, respirations 14, blood pressure 82/54. GENERAL: The patient is awake and responsive, pleasantly demented, no acute distress. HEENT: Head and neck examination, pupils are equal and reactive to light. Extraocular movements are intact. NECK: Supple. No JVD. LUNGS: Good air entry. Poor inspiratory effort. No wheezing or rhonchi. HEART: S1 and S2. Distant heart sounds. No murmur or gallop. Irregular heartbeat. ABDOMEN: Soft, nondistended, and nontender. Positive bowel sounds. EXTREMITIES: No cyanosis, clubbing, or edema. Muscle atrophy was noted and dry skin. NEUROLOGIC: Limited secondary to the patient's status. However, the patient moving all the extremities spontaneously. Gait was not assessed due to patient's status. LABORATORY AND DIAGNOSTIC DATA: On admission from the ER, WBC of 12, hemoglobin 11, hematocrit 32, and platelets 364. Sodium 132, potassium 2.8, chloride 101, bicarb 26, BUN 76, creatinine 2.3, and glucose 163. Lactic acid is 2.3. Troponin less 0.014. Albumin is 2.6. PT of 12, INR 1.2, and PTT of 29. UA is +2 protein, +5 blood. Negative nitrite, +3 leukocytes, 60 to 80 rbc's, wbc's. Preliminary urine cultures showed gram-negative bacilli. Chest x-ray, no acute process, borderline cardiomegaly. CT of the head, chronic changes, negative for acute intracranial bleed or mass. ASSESSMENT: 1. Acute urinary tract infection. 2. Acute kidney injury on chronic renal insufficiency. 3. Hypokalemia. 4. Severe dehydration with hypovolemia. 5. Possible pyelonephritis. 6. Dementia. 7. Hypertension. 8. Atrial fibrillation. 9. Prior history of CVA. PLAN: Admit the patient to monitored unit. We will follow up with ID consultation with . . We start the patient on broad-spectrum antibiotics with Zosyn. Follow up with the cultures. Monitor laboratory. Code status at this time is Full Code. DVT prophylaxis with heparin subcutaneous. Resume senior care. IV hydration. Potassium supplement. Trenton Brantley M.D. DR: Evangelina JOB#: [id number] CC:
[2018-06-18] MEDS: Atorvastatin 20mg tab ORAL SCH (21:44)
--- NOTE | 2018-06-18 23:14 | General Progress Note ---
Assessment/Plan Assessment/Plan Encephalopathy due to [facility] Dementia chronic -seroquel prn -cont to monitor Subjective Date patient seen: Jun 21, 2018 Neurologic/Psychiatric: Reports: anxiety, depressed Allergies: Coded Allergies: No Known Allergies (Unverified , 06/17/18) Objective Last 24 Hour Vital Signs Date Time Temp Pulse Resp B/P (MAP) Pulse Ox O2 Delivery O2 Flow Rate FiO2 06/18/18 16:00 73 06/18/18 16:00 97.6 94 20 153/98 (116) 100 97.6 06/18/18 12:00 76 06/18/18 12:00 97.2 73 20 113/61 (78) 99 97.2 06/18/18 09:00 Room Air 06/18/18 08:19 120/74 06/18/18 08:19 79 120/74 06/18/18 08:00 97.5 79 20 120/74 (89) 99 97.5 06/18/18 08:00 69 06/18/18 04:16 98.0 60 18 125/75 (92) 98 98.0 06/18/18 03:51 69 06/18/18 01:07 97.0 60 18 137/86 (103) 98 97.0 06/17/18 23:35 68 Intake and Output 06/17/18 06/18/18 19:00 07:00 Intake Total 175 ml Balance 175 ml Intake Oral 120 ml IV Total 55 ml # Voids 1 Laboratory Tests 06/18/18 06:23: White Blood Count 13.7H, Red Blood Count 3.59L, Hemoglobin 11.4L, Hematocrit 33.5L, Mean Corpuscular Volume 93, Mean Corpuscular Hemoglobin 31.9H, Mean Corpuscular Hemoglobin Concent 34.2, Red Cell Distribution Width 11.6, Platelet Count 369, Mean Platelet Volume 5.6L, Neutrophils (%) (Auto) 79.1H, Lymphocytes (%) (Auto) 13.6L, Monocytes (%) (Auto) 6.6, Eosinophils (%) (Auto) 0.4, Basophils (%) (Auto) 0.4, Prothrombin Time 11.9H, Prothromb Time International Ratio 1.1, Activated Partial Thromboplast Time 30, Sodium Level 144, Potassium Level 2.9L, Chloride Level 107, Carbon Dioxide Level 28, Anion Gap 10, Blood Urea Nitrogen 57H, Creatinine 1.7H, Estimat Glomerular Filtration Rate , Glucose Level 114H, Calcium Level 9.1, Total Bilirubin 0.4, Aspartate Amino Transf (AST/SGOT) 32, Alanine Aminotransferase (ALT/SGPT) 45, Alkaline Phosphatase 78, Total Protein 7.9, Albumin 2.5L, Globulin 5.4, Albumin/Globulin Ratio 0.5L, Triglycerides Level 92, Cholesterol Level 107, LDL Cholesterol 66, HDL Cholesterol 28L, Cholesterol/HDL Ratio 3.8, Thyroid Stimulating Hormone (TSH ) 0.953 06/18/18 18:50: Sodium Level 146H, Potassium Level 4.2, Chloride Level 109H, Carbon Dioxide Level 26, Anion Gap 11, Blood Urea Nitrogen 49H, Creatinine 1.6H, Estimat Glomerular Filtration Rate , Glucose Level 134H, Calcium Level 8.5 Height (Feet): 5 Height (Inches): 6.00 Weight (Pounds): 150 General Appearance: no apparent distress, alert, confused, agitated Raulito Avilez MD Jun 18, 2018 23:14
[2018-06-19] VITALS: BP 146/72
[2018-06-19 04:00] VITALS: BP 141/85
[2018-06-19] MEDS: Piperacillin/Tazobactam 3.375 GM in NS 110 ML IVPB SCH (06:07)
[2018-06-19 08:00] VITALS: BP 144/70
[2018-06-19] MEDS: Heparin 5000 units/ml inj SUBQ SCH ×2 (08:39→21:57)
[2018-06-19] MEDS: Imdur 30mg tab ORAL SCH (08:51)
[2018-06-19] MEDS: ARIPiprazole 2mg tab ORAL SCH (08:51)
[2018-06-19 09:03] LABS: HEMATOCRIT 32.3 % (42.0-52.0); HEMOGLOBIN 11.4 G/DL (14.2-18.0); MEAN CORPUSCULAR VOLUME 94 FL (80-99); PLATELET COUNT 357 K/UL (150-450); RED BLOOD COUNT 3.44 M/UL (4.70-6.10); RED CELL DISTRIBUTION WIDTH 11.6 % (11.6-14.8); WHITE BLOOD COUNT 11.9 K/UL (4.8-10.8)
--- NOTE | 2018-06-19 09:13 | Infectious Diseases Prog Note ---
Assessment/Plan Assessment/Plan A: 83 yo male brought in from his long-term after an episode of syncope and was found to have UTI. Probable Sepsis Leukocytosis improving UTI ( Probable complicated ) Pos UA 06/17/18 UCx EColi +ve blood Cx : GPC ? Contaminant 06/17/18 BCx GPC Afberile Syncope, sp Brain CT : Chronic and age-related changes. Negative for acute intracranial bleed or mass effect HTN A.fib CVA Dementia PLAN: -Add IV Vanco # 1 -Continue oral Amoxillin d# and DC Zosyn # 2 -repeat Blood cx -f/u Blood Cx -Monitor CBC and temps - US of Kid ( Ro Obst ) Subjective Allergies: Coded Allergies: No Known Allergies (Unverified , 06/17/18) Subjective Comfortable Objective Vital Signs Last 24 Hour Vital Signs Date Time Temp Pulse Resp B/P (MAP) Pulse Ox O2 Delivery O2 Flow Rate FiO2 06/19/18 08:51 144/70 06/19/18 08:51 65 144/70 06/19/18 08:00 98.4 65 16 144/70 (94) 99 98.4 06/19/18 04:00 66 06/19/18 04:00 97.0 61 20 141/85 (103) 97 97.0 06/19/18 00:00 58 06/19/18 00:00 97.4 58 21 146/72 (96) 97 97.4 06/18/18 22:20 61 18 Room Air 21 06/18/18 21:00 Room Air 06/18/18 20:00 98.4 69 21 139/69 (92) 97 98.4 06/18/18 20:00 69 06/18/18 16:00 73 06/18/18 16:00 97.6 94 20 153/98 (116) 100 97.6 06/18/18 12:00 76 06/18/18 12:00 97.2 73 20 113/61 (78) 99 97.2 Height (Feet): 5 Height (Inches): 6.00 Weight (Pounds): 150 HEENT: anicteric Respiratory/Chest: normal breath sounds Cardiovascular: regularly irregular Abdomen: non distended Microbiology Date/Time Source Procedure Growth Status 06/17/18 14:05 Blood Blood Culture - Preliminary Gram Positive Cocci Resulted 06/17/18 13:55 Urine,Clean Catch Urine Culture - Final Escherichia Coli Complete Laboratory Tests Test 06/18/18 18:50 06/19/18 08:30 Sodium Level 146 MMOL/L (136-145) H Pending Potassium Level 4.2 MMOL/L (3.5-5.1) Pending Chloride Level 109 MMOL/L (98-107) H Pending Carbon Dioxide Level 26 MMOL/L (21-32) Pending Anion Gap 11 mmol/L (5-15) Blood Urea Nitrogen 49 mg/dL (7-18) H Pending Creatinine 1.6 MG/DL (0.55-1.30) H Pending Estimat Glomerular Filtration Rate mL/min (>60) Pending Glucose Level 134 MG/DL (74-106) H Pending Calcium Level 8.5 MG/DL (8.5-10.1) Pending White Blood Count 11.9 K/UL (4.8-10.8) H Red Blood Count 3.44 M/UL (4.70-6.10) L Hemoglobin 11.4 G/DL (14.2-18.0) L Hematocrit 32.3 % (42.0-52.0) L Mean Corpuscular Volume 94 FL (80-99) Mean Corpuscular Hemoglobin 33.3 PG (27.0-31.0) H Mean Corpuscular Hemoglobin Concent 35.4 G/DL (32.0-36.0) Red Cell Distribution Width 11.6 % (11.6-14.8) Platelet Count 357 K/UL (150-450) Mean Platelet Volume 5.4 FL (6.5-10.1) L Neutrophils (%) (Auto) % (45.0-75.0) Lymphocytes (%) (Auto) % (20.0-45.0) Monocytes (%) (Auto) % (1.0-10.0) Eosinophils (%) (Auto) % (0.0-3.0) Basophils (%) (Auto) % (0.0-2.0) Neutrophils % (Manual) Pending Lymphocytes % (Manual) Pending Platelet Estimate Pending Platelet Morphology Pending Erythrocyte Sedimentation Rate Pending Phosphorus Level Pending Magnesium Level Pending Total Bilirubin Pending Aspartate Amino Transf (AST/SGOT) Pending Alanine Aminotransferase (ALT/SGPT) Pending Alkaline Phosphatase Pending C-Reactive Protein, Quantitative Pending Total Protein Pending Albumin Pending Globulin Pending Current Medications Medications (Trade) Dose Ordered Sig/Marleni Route PRN Reason Start Time Stop Time Status Last Admin Dose Admin Acetaminophen (Tylenol) 650 mg Q4H PRN ORAL fever (temp>100.5F) 06/17/18 17:45 07/17/18 17:44 Al Hydroxide/Mg Hydroxide (Mylanta II) 30 ml Q6H PRN ORAL dyspepsia 06/17/18 17:45 07/17/18 17:44 Albuterol/ Ipratropium (Albuterol/ Ipratropium) 3 ml Q4H PRN HHN Shortness of Breath 06/17/18 17:45 06/22/18 17:44 Amlodipine Besylate (Norvasc) 5 mg DAILY ORAL 06/18/18 09:00 07/18/18 08:59 06/19/18 08:51 Aripiprazole (Abilify) 2 mg DAILY ORAL 06/18/18 09:00 07/18/18 08:59 06/19/18 08:51 Atorvastatin Calcium (Lipitor) 20 mg BEDTIME ORAL 06/17/18 21:00 07/17/18 20:59 06/18/18 21:44 Clonidine HCl (Catapres Tab) 0.1 mg Q4H PRN ORAL For High Blood Pressure 06/17/18 17:45 07/17/18 17:44 Dextrose (Dextrose 50%) 25 ml STAT PRN IV Hypoglycemia 06/17/18 17:45 07/17/18 17:44 Dextrose (Dextrose 50%) 50 ml STAT PRN IV Hypoglycemia 06/17/18 17:45 07/17/18 17:44 Heparin Sodium (Porcine) (Heparin 5000 units/ml) 5,000 units EVERY 12 HOURS SUBQ 06/17/18 21:00 07/17/18 20:59 06/19/18 08:39 Isosorbide Mononitrate (Imdur) 30 mg DAILY ORAL 06/18/18 09:00 07/18/18 08:59 06/19/18 08:51 Lorazepam (Ativan 2mg/ml 1ml) 0.5 mg Q4H PRN IV For Anxiety 06/17/18 17:45 06/24/18 17:44 Morphine Sulfate (Morphine Sulfate) 1 mg Q4H PRN IVP For Pain 7-10 06/17/18 17:45 06/24/18 17:44 Nitroglycerin (Ntg) 0.4 mg Q5M X 3 DOSES PRN SL Prn Chest Pain 06/17/18 17:45 07/17/18 17:44 Ondansetron HCl (Zofran) 4 mg Q6H PRN IVP Nausea & Vomiting 06/17/18 17:45 07/17/18 17:44 Piperacillin Sod/ Tazobactam Sod 3.375 gm/Sodium Chloride 110 ml @ 27 mls/hr EVERY 8 HOURS IVPB 06/18/18 14:00 06/25/18 13:59 06/19/18 06:07 Polyethylene Glycol (Miralax) 17 gm HSPRN PRN ORAL Constipation 06/17/18 17:45 07/17/18 17:44 Sodium Chloride 1,000 ml @ 150 mls/hr Q6H40M IV 06/18/18 13:00 07/18/18 12:59 06/19/18 08:52 Temazepam (Restoril) 15 mg HSPRN PRN ORAL Insomnia 06/17/18 17:45 06/24/18 17:44 06/17/18 20:52 Vancomycin HCl (Vanco rx to dose) 1 ea DAILY PRN MISC Per rx protocol 06/19/18 07:15 07/19/18 07:14 UNV Vancomycin HCl/ Dextrose 250 ml @ 166.667 mls/hr ONCE IVPB 06/19/18 10:00 06/19/18 12:00 Satinder Palencia MD Jun 19, 2018 09:13
[2018-06-19 09:18] LABS: ALANINE AMINOTRANSFERASE 44 U/L (12-78); ALBUMIN 2.4 G/DL (3.4-5.0); ALBUMIN/GLOBULIN RATIO 0.5 (1.0-2.7); ALKALINE PHOSPHATASE 78 U/L (46-116); ANION GAP 8 mmol/L (5-15); ASPARTATE AMINO TRANSFERASE 30 U/L (15-37); BILIRUBIN,TOTAL 0.4 MG/DL (0.2-1.0); BLOOD UREA NITROGEN 35 mg/dL (7-18); CALCIUM 8.7 MG/DL (8.5-10.1); CARBON DIOXIDE 27 MMOL/L (21-32); CHLORIDE 107 MMOL/L (98-107); CREATININE 1.4 MG/DL (0.55-1.30); PHOSPHORUS 2.1 MG/DL (2.5-4.9); POTASSIUM 3.6 MMOL/L (3.5-5.1); SODIUM 142 MMOL/L (136-145)
[2018-06-19] MEDS ORDERED: Vancomycin 1250mg/D5W 250ml IVPB SCH (10:00)
--- NOTE | 2018-06-19 10:26 | Pulmonology Progress Note ---
Assessment/Plan Problems: (1) Pyelonephritis (2) Dehydration (3) CVA (cerebral vascular accident) (4) Hypokalemia (5) Dementia (6) Hypertension Assessment/Plan improving iv fluids check electrolytes monitor BP f/u urine cultures f/u renal function Subjective ROS Limited/Unobtainable: No Constitutional: Reports: no symptoms HEENT: Repors: no symptoms Respiratory: Reports: no symptoms Allergies: Coded Allergies: No Known Allergies (Unverified , 06/17/18) Objective Last 24 Hour Vital Signs Date Time Temp Pulse Resp B/P (MAP) Pulse Ox O2 Delivery O2 Flow Rate FiO2 06/19/18 09:00 Room Air 06/19/18 08:51 144/70 06/19/18 08:51 65 144/70 06/19/18 08:00 80 06/19/18 08:00 98.4 65 16 144/70 (94) 99 98.4 06/19/18 04:00 66 06/19/18 04:00 97.0 61 20 141/85 (103) 97 97.0 06/19/18 00:00 58 06/19/18 00:00 97.4 58 21 146/72 (96) 97 97.4 06/18/18 22:20 61 18 Room Air 21 06/18/18 21:00 Room Air 06/18/18 20:00 98.4 69 21 139/69 (92) 97 98.4 06/18/18 20:00 69 06/18/18 16:00 73 06/18/18 16:00 97.6 94 20 153/98 (116) 100 97.6 06/18/18 12:00 76 06/18/18 12:00 97.2 73 20 113/61 (78) 99 97.2 Intake and Output 06/18/18 06/19/18 19:00 07:00 Intake Total 3130.0 ml 927 ml Output Total 750 ml Balance 2380.0 ml 927 ml Intake Oral 620 ml IV Total 2510.0 ml 927 ml Output Urine Total 750 ml # Voids 1 # Bowel Movements 2 General Appearance: WD/WN HEENT: normocephalic, atraumatic Respiratory/Chest: chest wall non-tender, lungs clear Cardiovascular: normal peripheral pulses, normal rate Abdomen: normal bowel sounds, soft, non tender Genitourinary: normal external genitalia Extremities: no cyanosis Skin: no rash 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/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: 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, no motor/sensory deficits Lymphatic: no neck adenopathy Microbiology Date/Time Source Procedure Growth Status 06/17/18 14:05 Blood Blood Culture - Preliminary Gram Positive Cocci Resulted 06/17/18 13:55 Blood Blood Culture - Preliminary NO GROWTH AFTER 24 HOURS Resulted 06/17/18 13:55 Urine,Clean Catch Urine Culture - Final Escherichia Coli Complete Laboratory Tests 06/18/18 18:50: Sodium Level 146H, Potassium Level 4.2, Chloride Level 109H, Carbon Dioxide Level 26, Anion Gap 11, Blood Urea Nitrogen 49H, Creatinine 1.6H, Estimat Glomerular Filtration Rate , Glucose Level 134H, Calcium Level 8.5 06/19/18 08:30: Sodium Level 142, Potassium Level 3.6, Chloride Level 107, Carbon Dioxide Level 27, Anion Gap 8, Blood Urea Nitrogen 35H, Creatinine 1.4H, Estimat Glomerular Filtration Rate , Glucose Level 139H, Calcium Level 8.7, White Blood Count 11.9H , Red Blood Count 3.44L, Hemoglobin 11.4L, Hematocrit 32.3L, Mean Corpuscular Volume 94, Mean Corpuscular Hemoglobin 33.3H, Mean Corpuscular Hemoglobin Concent 35.4, Red Cell Distribution Width 11.6, Platelet Count 357, Mean Platelet Volume 5.4L, Neutrophils (%) (Auto) , Lymphocytes (%) (Auto) , Monocytes (%) (Auto) , Eosinophils (%) (Auto) , Basophils (%) (Auto) , Neutrophils % (Manual) [Pending], Lymphocytes % (Manual) [Pending], Platelet Estimate [Pending], Platelet Morphology [Pending], Erythrocyte Sedimentation Rate 108H, Phosphorus Level 2.1L, Magnesium Level 1.5L, Total Bilirubin 0.4, Aspartate Amino Transf (AST/SGOT) 30, Alanine Aminotransferase (ALT/SGPT) 44, Alkaline Phosphatase 78, C-Reactive Protein, Quantitative 4.8H, Total Protein 7.7, Albumin 2.4L, Globulin 5.3, Albumin/Globulin Ratio 0.5L Current Medications Medications (Trade) Dose Ordered Sig/Marleni Route PRN Reason Start Time Stop Time Status Last Admin Dose Admin Acetaminophen (Tylenol) 650 mg Q4H PRN ORAL fever (temp>100.5F) 06/17/18 17:45 07/17/18 17:44 Al Hydroxide/Mg Hydroxide (Mylanta II) 30 ml Q6H PRN ORAL dyspepsia 06/17/18 17:45 07/17/18 17:44 Albuterol/ Ipratropium (Albuterol/ Ipratropium) 3 ml Q4H PRN HHN Shortness of Breath 06/17/18 17:45 06/22/18 17:44 Amlodipine Besylate (Norvasc) 5 mg DAILY ORAL 06/18/18 09:00 07/18/18 08:59 06/19/18 08:51 Amoxicillin (Amoxil) 500 mg EVERY 8 HOURS GT 06/19/18 14:00 06/26/18 13:59 Aripiprazole (Abilify) 2 mg DAILY ORAL 06/18/18 09:00 07/18/18 08:59 06/19/18 08:51 Atorvastatin Calcium (Lipitor) 20 mg BEDTIME ORAL 06/17/18 21:00 07/17/18 20:59 06/18/18 21:44 Clonidine HCl (Catapres Tab) 0.1 mg Q4H PRN ORAL For High Blood Pressure 06/17/18 17:45 07/17/18 17:44 Dextrose (Dextrose 50%) 25 ml STAT PRN IV Hypoglycemia 06/17/18 17:45 07/17/18 17:44 Dextrose (Dextrose 50%) 50 ml STAT PRN IV Hypoglycemia 06/17/18 17:45 07/17/18 17:44 Heparin Sodium (Porcine) (Heparin 5000 units/ml) 5,000 units EVERY 12 HOURS SUBQ 06/17/18 21:00 07/17/18 20:59 06/19/18 08:39 Isosorbide Mononitrate (Imdur) 30 mg DAILY ORAL 06/18/18 09:00 07/18/18 08:59 06/19/18 08:51 Lorazepam (Ativan 2mg/ml 1ml) 0.5 mg Q4H PRN IV For Anxiety 06/17/18 17:45 06/24/18 17:44 Morphine Sulfate (Morphine Sulfate) 1 mg Q4H PRN IVP For Pain 7-10 06/17/18 17:45 06/24/18 17:44 Nitroglycerin (Ntg) 0.4 mg Q5M X 3 DOSES PRN SL Prn Chest Pain 06/17/18 17:45 07/17/18 17:44 Ondansetron HCl (Zofran) 4 mg Q6H PRN IVP Nausea & Vomiting 06/17/18 17:45 07/17/18 17:44 Polyethylene Glycol (Miralax) 17 gm HSPRN PRN ORAL Constipation 06/17/18 17:45 07/17/18 17:44 Sodium Chloride 1,000 ml @ 150 mls/hr Q6H40M IV 06/18/18 13:00 07/18/18 12:59 06/19/18 08:52 Temazepam (Restoril) 15 mg HSPRN PRN ORAL Insomnia 06/17/18 17:45 06/24/18 17:44 06/17/18 20:52 Vancomycin HCl (Vanco rx to dose) 1 ea DAILY PRN MISC Per rx protocol 06/19/18 07:15 07/19/18 07:14 Vancomycin HCl/ Dextrose 250 ml @ 166.667 mls/hr ONCE IVPB 06/19/18 10:00 06/19/18 12:00 Vancomycin/Sodium Chloride 250 ml @ 166.667 mls/hr Q24H IVPB 06/20/18 10:00 06/25/18 09:59 Jose Rooney MD Jun 19, 2018 10:26
[2018-06-19 12:00] VITALS: BP 132/76
[2018-06-19] MEDS ORDERED: Amoxicillin 250mg/5ml susp 150ml GT SCH (14:00)
--- NOTE | 2018-06-19 15:17 | Internal Med Progress Note ---
Subjective Date of Service: Jun 19, 2018 Physician Name Noe Sanchez Attending Physician Trenton Brantley MD Current Medications Medications (Trade) Dose Ordered Sig/Marleni Route PRN Reason Start Time Stop Time Status Last Admin Dose Admin Acetaminophen (Tylenol) 650 mg Q4H PRN ORAL fever (temp>100.5F) 06/17/18 17:45 07/17/18 17:44 Al Hydroxide/Mg Hydroxide (Mylanta II) 30 ml Q6H PRN ORAL dyspepsia 06/17/18 17:45 07/17/18 17:44 Albuterol/ Ipratropium (Albuterol/ Ipratropium) 3 ml Q4H PRN HHN Shortness of Breath 06/17/18 17:45 06/22/18 17:44 Amlodipine Besylate (Norvasc) 5 mg DAILY ORAL 06/18/18 09:00 07/18/18 08:59 06/19/18 08:51 Amoxicillin (Amoxil) 500 mg EVERY 8 HOURS ORAL 06/19/18 13:00 06/26/18 12:59 06/19/18 13:11 Aripiprazole (Abilify) 2 mg DAILY ORAL 06/18/18 09:00 07/18/18 08:59 06/19/18 08:51 Atorvastatin Calcium (Lipitor) 20 mg BEDTIME ORAL 06/17/18 21:00 07/17/18 20:59 06/18/18 21:44 Clonidine HCl (Catapres Tab) 0.1 mg Q4H PRN ORAL For High Blood Pressure 06/17/18 17:45 07/17/18 17:44 Dextrose (Dextrose 50%) 25 ml STAT PRN IV Hypoglycemia 06/17/18 17:45 07/17/18 17:44 Dextrose (Dextrose 50%) 50 ml STAT PRN IV Hypoglycemia 06/17/18 17:45 07/17/18 17:44 Heparin Sodium (Porcine) (Heparin 5000 units/ml) 5,000 units EVERY 12 HOURS SUBQ 06/17/18 21:00 07/17/18 20:59 06/19/18 08:39 Isosorbide Mononitrate (Imdur) 30 mg DAILY ORAL 06/18/18 09:00 07/18/18 08:59 06/19/18 08:51 Lorazepam (Ativan 2mg/ml 1ml) 0.5 mg Q4H PRN IV For Anxiety 06/17/18 17:45 06/24/18 17:44 Morphine Sulfate (Morphine Sulfate) 1 mg Q4H PRN IVP For Pain 7-10 06/17/18 17:45 06/24/18 17:44 Nitroglycerin (Ntg) 0.4 mg Q5M X 3 DOSES PRN SL Prn Chest Pain 06/17/18 17:45 07/17/18 17:44 Ondansetron HCl (Zofran) 4 mg Q6H PRN IVP Nausea & Vomiting 06/17/18 17:45 07/17/18 17:44 Polyethylene Glycol (Miralax) 17 gm HSPRN PRN ORAL Constipation 06/17/18 17:45 07/17/18 17:44 Sodium Chloride 1,000 ml @ 150 mls/hr Q6H40M IV 06/18/18 13:00 07/18/18 12:59 06/19/18 08:52 Temazepam (Restoril) 15 mg HSPRN PRN ORAL Insomnia 06/17/18 17:45 06/24/18 17:44 06/17/18 20:52 Vancomycin HCl (Vanco rx to dose) 1 ea DAILY PRN MISC Per rx protocol 06/19/18 07:15 07/19/18 07:14 Vancomycin/Sodium Chloride 250 ml @ 166.667 mls/hr Q24H IVPB 06/20/18 10:00 06/25/18 09:59 Allergies: Coded Allergies: No Known Allergies (Unverified , 06/17/18) ROS Limited/Unobtainable: Yes Subjective 83 YO M admitted with syncope, now UTI. Cover for Int Med Dr Brantley. Objective Last Vital Signs Date Time Temp Pulse Resp B/P (MAP) Pulse Ox O2 Delivery O2 Flow Rate FiO2 06/19/18 12:00 72 06/19/18 12:00 98.4 18 132/76 (94) 98 98.4 06/19/18 09:00 Room Air 06/18/18 22:20 21 General Appearance: no apparent distress, alert, thin EENT: PERRL/EOMI, normal ENT inspection, TMs normal Neck: non-tender, normal alignment, supple, normal inspection Cardiovascular: normal peripheral pulses, normal rate, regular rhythm, no gallop/murmur, no JVD Respiratory/Chest: chest wall non-tender, lungs clear, normal breath sounds, no respiratory distress, no accessory muscle use Abdomen: normal bowel sounds, non tender, soft, no organomegaly, no mass Extremities: normal range of motion, non-tender 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, no motor/sensory deficits Skin: normal pigmentation, warm/dry Laboratory Tests Test 06/18/18 18:50 06/19/18 08:30 Sodium Level 146 MMOL/L (136-145) H 142 MMOL/L (136-145) Potassium Level 4.2 MMOL/L (3.5-5.1) 3.6 MMOL/L (3.5-5.1) Chloride Level 109 MMOL/L (98-107) H 107 MMOL/L (98-107) Carbon Dioxide Level 26 MMOL/L (21-32) 27 MMOL/L (21-32) Anion Gap 11 mmol/L (5-15) 8 mmol/L (5-15) Blood Urea Nitrogen 49 mg/dL (7-18) H 35 mg/dL (7-18) H Creatinine 1.6 MG/DL (0.55-1.30) H 1.4 MG/DL (0.55-1.30) H Estimat Glomerular Filtration Rate mL/min (>60) mL/min (>60) Glucose Level 134 MG/DL (74-106) H 139 MG/DL (74-106) H Calcium Level 8.5 MG/DL (8.5-10.1) 8.7 MG/DL (8.5-10.1) White Blood Count 11.9 K/UL (4.8-10.8) H Red Blood Count 3.44 M/UL (4.70-6.10) L Hemoglobin 11.4 G/DL (14.2-18.0) L Hematocrit 32.3 % (42.0-52.0) L Mean Corpuscular Volume 94 FL (80-99) Mean Corpuscular Hemoglobin 33.3 PG (27.0-31.0) H Mean Corpuscular Hemoglobin Concent 35.4 G/DL (32.0-36.0) Red Cell Distribution Width 11.6 % (11.6-14.8) Platelet Count 357 K/UL (150-450) Mean Platelet Volume 5.4 FL (6.5-10.1) L Neutrophils (%) (Auto) % (45.0-75.0) Lymphocytes (%) (Auto) % (20.0-45.0) Monocytes (%) (Auto) % (1.0-10.0) Eosinophils (%) (Auto) % (0.0-3.0) Basophils (%) (Auto) % (0.0-2.0) Differential Total Cells Counted 100 Neutrophils % (Manual) 85 % (45-75) H Lymphocytes % (Manual) 8 % (20-45) L Monocytes % (Manual) 6 % (1-10) Eosinophils % (Manual) 0 % (0-3) Basophils % (Manual) 0 % (0-2) Band Neutrophils 1 % (0-8) Platelet Estimate Adequate Platelet Morphology Normal Red Blood Cell Morphology Normal Erythrocyte Sedimentation Rate 108 MM/HR (0-20) H Phosphorus Level 2.1 MG/DL (2.5-4.9) L Magnesium Level 1.5 MG/DL (1.8-2.4) L Total Bilirubin 0.4 MG/DL (0.2-1.0) Aspartate Amino Transf (AST/SGOT) 30 U/L (15-37) Alanine Aminotransferase (ALT/SGPT) 44 U/L (12-78) Alkaline Phosphatase 78 U/L (46-116) C-Reactive Protein, Quantitative 4.8 mg/dL (0.00-0.90) H Total Protein 7.7 G/DL (6.4-8.2) Albumin 2.4 G/DL (3.4-5.0) L Globulin 5.3 g/dL Albumin/Globulin Ratio 0.5 (1.0-2.7) L Microbiology Date/Time Source Procedure Growth Status 06/17/18 14:05 Blood Blood Culture - Preliminary Gram Positive Cocci Resulted 06/17/18 13:55 Blood Blood Culture - Preliminary NO GROWTH AFTER 24 HOURS Resulted 06/17/18 13:55 Urine,Clean Catch Urine Culture - Final Escherichia Coli Complete Intake and Output 06/18/18 06/19/18 19:00 07:00 Intake Total 3130.0 ml 1077 ml Output Total 750 ml Balance 2380.0 ml 1077 ml Intake Oral 620 ml IV Total 2510.0 ml 1077 ml Output Urine Total 750 ml # Voids 1 # Bowel Movements 2 Assessment/Plan Problem List: (1) Atrial fibrillation (2) Cerebral vascular disease (3) Alzheimer's dementia (4) UTI (urinary tract infection) Assessment & Plan: E. Coli. continue zosyn per ID (5) Sepsis Assessment & Plan: Gram pos cocci. Continue vanco per ID (6) Syncope (7) Hypertension Assessment & Plan: Continue amlodipine (8) CVA (cerebral vascular accident) Status: not improved Noe Sanchez MD Jun 19, 2018 15:17
--- NOTE | 2018-06-19 15:28 | Consultation ---
History of Present Illness General Date patient seen: Jun 19, 2018 Time patient seen: 15:20 Chief Complaint: Syncope Reason for Consultation: UTI Present Illness HPI 83 year old patient brought in by ambulance from [facility] due to witnessed syncopal episode for 1-2 min. He has a history of HTN, AFib, CVA/TIA, dementia. He has no complaints at this time. labs show elevated WBC and abnormal urine concerning for UTI. HR/BP stable. CXR negative for infection, CT negative for CVA/hemorrhage. Allergies: Coded Allergies: No Known Allergies (Unverified , 06/17/18) Medication History Scheduled Amlodipine Besylate* (Amlodipine Besylate*), 5 MG ORAL DAILY, (Reported) Aripiprazole* (Abilify*), 2 MG ORAL DAILY, (Reported) Atorvastatin Calcium* (Atorvastatin Calcium*), 20 MG ORAL BEDTIME, (Reported) Furosemide* (Lasix*), 40 MG ORAL DAILY, (Reported) Isosorbide Mononitrate (Isosorbide Mononitrate Er), 30 MG PO DAILY, (Reported) Losartan/Hydrochlorothiazide 100-12.5 Tablet (Hyzaar 100-12.5 Tablet), 1 TAB ORAL DAILY, (Reported) Potassium Chloride (Potassium Chloride), 20 MEQ PO DAILY, (Reported) Scheduled PRN Acetaminophen With Codeine (T#3) (Tylenol #3 Tab*), 1 TAB ORAL Q6H PRN for For Pain, (Reported) Patient History Healthcare decision maker Resuscitation status Full Code Advanced Directive on File Physical Exam Last 24 Hour Vital Signs Date Time Temp Pulse Resp B/P (MAP) Pulse Ox O2 Delivery O2 Flow Rate FiO2 06/19/18 12:00 72 06/19/18 12:00 98.4 74 18 132/76 (94) 98 98.4 06/19/18 09:00 Room Air 06/19/18 08:51 144/70 06/19/18 08:51 65 144/70 06/19/18 08:00 80 06/19/18 08:00 98.4 65 16 144/70 (94) 99 98.4 06/19/18 04:00 66 06/19/18 04:00 97.0 61 20 141/85 (103) 97 97.0 06/19/18 00:00 58 06/19/18 00:00 97.4 58 21 146/72 (96) 97 97.4 06/18/18 22:20 61 18 Room Air 21 06/18/18 21:00 Room Air 06/18/18 20:00 98.4 69 21 139/69 (92) 97 98.4 06/18/18 20:00 69 06/18/18 16:00 73 06/18/18 16:00 97.6 94 20 153/98 (116) 100 97.6 Intake and Output 06/18/18 06/19/18 19:00 07:00 Intake Total 3130.0 ml 1077 ml Output Total 750 ml Balance 2380.0 ml 1077 ml Intake Oral 620 ml IV Total 2510.0 ml 1077 ml Output Urine Total 750 ml # Voids 1 # Bowel Movements 2 Laboratory Tests Test 06/18/18 18:50 06/19/18 08:30 Sodium Level 146 MMOL/L (136-145) H 142 MMOL/L (136-145) Potassium Level 4.2 MMOL/L (3.5-5.1) 3.6 MMOL/L (3.5-5.1) Chloride Level 109 MMOL/L (98-107) H 107 MMOL/L (98-107) Carbon Dioxide Level 26 MMOL/L (21-32) 27 MMOL/L (21-32) Anion Gap 11 mmol/L (5-15) 8 mmol/L (5-15) Blood Urea Nitrogen 49 mg/dL (7-18) H 35 mg/dL (7-18) H Creatinine 1.6 MG/DL (0.55-1.30) H 1.4 MG/DL (0.55-1.30) H Estimat Glomerular Filtration Rate mL/min (>60) mL/min (>60) Glucose Level 134 MG/DL (74-106) H 139 MG/DL (74-106) H Calcium Level 8.5 MG/DL (8.5-10.1) 8.7 MG/DL (8.5-10.1) White Blood Count 11.9 K/UL (4.8-10.8) H Red Blood Count 3.44 M/UL (4.70-6.10) L Hemoglobin 11.4 G/DL (14.2-18.0) L Hematocrit 32.3 % (42.0-52.0) L Mean Corpuscular Volume 94 FL (80-99) Mean Corpuscular Hemoglobin 33.3 PG (27.0-31.0) H Mean Corpuscular Hemoglobin Concent 35.4 G/DL (32.0-36.0) Red Cell Distribution Width 11.6 % (11.6-14.8) Platelet Count 357 K/UL (150-450) Mean Platelet Volume 5.4 FL (6.5-10.1) L Neutrophils (%) (Auto) % (45.0-75.0) Lymphocytes (%) (Auto) % (20.0-45.0) Monocytes (%) (Auto) % (1.0-10.0) Eosinophils (%) (Auto) % (0.0-3.0) Basophils (%) (Auto) % (0.0-2.0) Differential Total Cells Counted 100 Neutrophils % (Manual) 85 % (45-75) H Lymphocytes % (Manual) 8 % (20-45) L Monocytes % (Manual) 6 % (1-10) Eosinophils % (Manual) 0 % (0-3) Basophils % (Manual) 0 % (0-2) Band Neutrophils 1 % (0-8) Platelet Estimate Adequate Platelet Morphology Normal Red Blood Cell Morphology Normal Erythrocyte Sedimentation Rate 108 MM/HR (0-20) H Phosphorus Level 2.1 MG/DL (2.5-4.9) L Magnesium Level 1.5 MG/DL (1.8-2.4) L Total Bilirubin 0.4 MG/DL (0.2-1.0) Aspartate Amino Transf (AST/SGOT) 30 U/L (15-37) Alanine Aminotransferase (ALT/SGPT) 44 U/L (12-78) Alkaline Phosphatase 78 U/L (46-116) C-Reactive Protein, Quantitative 4.8 mg/dL (0.00-0.90) H Total Protein 7.7 G/DL (6.4-8.2) Albumin 2.4 G/DL (3.4-5.0) L Globulin 5.3 g/dL Albumin/Globulin Ratio 0.5 (1.0-2.7) L Height (Feet): 5 Height (Inches): 6.00 Weight (Pounds): 150 Medications Current Medications Medications (Trade) Dose Ordered Sig/Marleni Route PRN Reason Start Time Stop Time Status Last Admin Dose Admin Acetaminophen (Tylenol) 650 mg Q4H PRN ORAL fever (temp>100.5F) 06/17/18 17:45 07/17/18 17:44 Al Hydroxide/Mg Hydroxide (Mylanta II) 30 ml Q6H PRN ORAL dyspepsia 06/17/18 17:45 07/17/18 17:44 Albuterol/ Ipratropium (Albuterol/ Ipratropium) 3 ml Q4H PRN HHN Shortness of Breath 06/17/18 17:45 06/22/18 17:44 Amlodipine Besylate (Norvasc) 5 mg DAILY ORAL 06/18/18 09:00 07/18/18 08:59 06/19/18 08:51 Amoxicillin (Amoxil) 500 mg EVERY 8 HOURS ORAL 06/19/18 13:00 06/26/18 12:59 06/19/18 13:11 Aripiprazole (Abilify) 2 mg DAILY ORAL 06/18/18 09:00 07/18/18 08:59 06/19/18 08:51 Atorvastatin Calcium (Lipitor) 20 mg BEDTIME ORAL 06/17/18 21:00 07/17/18 20:59 06/18/18 21:44 Clonidine HCl (Catapres Tab) 0.1 mg Q4H PRN ORAL For High Blood Pressure 06/17/18 17:45 07/17/18 17:44 Dextrose (Dextrose 50%) 25 ml STAT PRN IV Hypoglycemia 06/17/18 17:45 07/17/18 17:44 Dextrose (Dextrose 50%) 50 ml STAT PRN IV Hypoglycemia 06/17/18 17:45 07/17/18 17:44 Heparin Sodium (Porcine) (Heparin 5000 units/ml) 5,000 units EVERY 12 HOURS SUBQ 06/17/18 21:00 07/17/18 20:59 06/19/18 08:39 Isosorbide Mononitrate (Imdur) 30 mg DAILY ORAL 06/18/18 09:00 07/18/18 08:59 06/19/18 08:51 Lorazepam (Ativan 2mg/ml 1ml) 0.5 mg Q4H PRN IV For Anxiety 06/17/18 17:45 06/24/18 17:44 Morphine Sulfate (Morphine Sulfate) 1 mg Q4H PRN IVP For Pain 7-10 06/17/18 17:45 06/24/18 17:44 Nitroglycerin (Ntg) 0.4 mg Q5M X 3 DOSES PRN SL Prn Chest Pain 06/17/18 17:45 07/17/18 17:44 Ondansetron HCl (Zofran) 4 mg Q6H PRN IVP Nausea & Vomiting 06/17/18 17:45 07/17/18 17:44 Polyethylene Glycol (Miralax) 17 gm HSPRN PRN ORAL Constipation 06/17/18 17:45 07/17/18 17:44 Sodium Chloride 1,000 ml @ 150 mls/hr Q6H40M IV 06/18/18 13:00 07/18/18 12:59 06/19/18 08:52 Temazepam (Restoril) 15 mg HSPRN PRN ORAL Insomnia 06/17/18 17:45 06/24/18 17:44 06/17/18 20:52 Vancomycin HCl (Vanco rx to dose) 1 ea DAILY PRN MISC Per rx protocol 06/19/18 07:15 07/19/18 07:14 Vancomycin/Sodium Chloride 250 ml @ 166.667 mls/hr Q24H IVPB 06/20/18 10:00 06/25/18 09:59 Assessment/Plan Status: stable Assessment/Plan Assessment (1) Atrial fibrillation (2) Cerebral vascular disease (3) Alzheimer's dementia (4) UTI (urinary tract infection (5) Sepsis (6) Syncope (7) Hypertension (8) CVA (cerebral vascular accident) (9) Hypokalemia (10) Dehydration Plan: IV fluids IV abx for UTI -> transition to PO, follow cultures Carotid US/Echocardiogram Physical therapy Orthostatics Aspirin Statin Monitor for hypotension on Norvasc + imdur Patient currently not on anticoagulation, (fall risk?) Serg Ortiz MD Jun 19, 2018 15:28
[2018-06-19 16:00] VITALS: BP 129/62
[2018-06-19] MEDS ORDERED: 1/2 NS 1000ml IV ONE (16:30)
[2018-06-19] MEDS ORDERED: Tubing IV Secondary IV ONE (16:30)
[2018-06-19] MEDS ORDERED: NS 275ml ONE (16:30)
--- NOTE | 2018-06-19 17:52 | Diagnostic Imaging Report ---
History: ABN LABS Exam: US ABDOMEN Comparison: None available FINDINGS: The right kidney measures 11.9 x 7.1 x 6 cm. The left kidney measures 10. 3 x 6.6 x 6.9 cm. The kidneys appear within limits for echogenicity. There is note of bilateral moderate-appearing hydronephrosis. There is an exophytic appearing hypoechoic lesion seen at the left kidney measuring around 2.8 x 2.6 x 3.3 cm and may represent cyst although it is difficult to clearly visualize. Prevoid bladder volume 80 cc. Rosenthal catheter noted. Appearance of a 6.5 x 4.6 x 4.4 cm bladder diverticulum containing some echogenic material which is nonspecific. Consideration would include debris or hemorrhage/clot with mass not excluded. No free fluid seen. IMPRESSION: The right kidney measures 11.9 x 7.1 x 6 cm. The left kidney measures 10. 3 x 6.6 x 6.9 cm. The kidneys appear within limits for echogenicity. There is note of bilateral moderate-appearing hydronephrosis. There is an exophytic appearing hypoechoic lesion seen at the left kidney measuring around 2.8 x 2.6 x 3.3 cm and may represent cyst although it is difficult to clearly visualize. Prevoid bladder volume 80 cc. Rosenthal catheter noted. Appearance of a 6.5 x 4.6 x 4.4 cm bladder diverticulum containing some echogenic material which is nonspecific. Consideration would include debris or hemorrhage/clot with mass not excluded.
[2018-06-19 20:00] VITALS: BP 132/76
[2018-06-19] MEDS: Atorvastatin 20mg tab ORAL SCH (21:53)
[2018-06-20] VITALS (7 sets, daily range): BP systolic 117–135; BP diastolic 58–76
--- NOTE | 2018-06-20 07:39 | Cardiology Progress Note ---
Assessment/Plan Status: stable Assessment/Plan Assessment (1) Atrial fibrillation (2) Cerebral vascular disease (3) Alzheimer's dementia (4) UTI (urinary tract infection (5) Sepsis (6) Syncope (7) Hypertension (8) CVA (cerebral vascular accident) (9) Hypokalemia (10) Dehydration Plan: IV fluids IV abx for UTI -> transition to PO, follow cultures Carotid US/Echocardiogram -> can be done as outpatient Physical therapy Orthostatics Aspirin Statin Monitor for hypotension on Norvasc + imdur Patient currently not on anticoagulation for afib, (fall risk?) Dispo planning Subjective Cardiovascular: Reports: no symptoms Respiratory: Reports: no symptoms Gastrointestinal/Abdominal: Reports: no symptoms Genitourinary: Reports: no symptoms Subjective No acute events, no complaints, vitals stable, uCx grew E Coli. BP normal no issues with medication Objective Last 24 Hour Vital Signs Date Time Temp Pulse Resp B/P (MAP) Pulse Ox O2 Delivery O2 Flow Rate FiO2 06/20/18 04:00 98.2 80 22 121/71 (88) 97 98.2 06/20/18 04:00 77 06/20/18 00:00 97.7 72 20 135/76 (95) 97 97.7 06/20/18 00:00 89 06/19/18 21:00 Room Air 06/19/18 20:11 82 18 Room Air 21 06/19/18 20:00 98.2 106 18 132/76 (94) 99 98.2 06/19/18 20:00 106 06/19/18 16:00 98.2 79 18 129/62 (84) 98 98.2 06/19/18 16:00 68 06/19/18 12:00 72 06/19/18 12:00 98.4 74 18 132/76 (94) 98 98.4 06/19/18 09:00 Room Air 06/19/18 08:51 144/70 06/19/18 08:51 65 144/70 06/19/18 08:00 80 06/19/18 08:00 98.4 65 16 144/70 (94) 99 98.4 General Appearance: no apparent distress, alert EENT: PERRL/EOMI, normal ENT inspection Neck: non-tender, normal alignment Rhythm: NSR Cardiovascular: normal peripheral pulses, normal rate Respiratory/Chest: chest wall non-tender, lungs clear Abdomen: normal bowel sounds, non tender Extremities: normal range of motion, non-tender 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 Intake and Output 06/19/18 06/20/18 19:00 07:00 Intake Total 2846 ml 1550 ml Output Total 1800 ml 600 ml Balance 1046 ml 950 ml Intake Oral 840 ml 200 ml IV Total 2006 ml 1350 ml Output Urine Total 1800 ml 600 ml # Bowel Movements 1 2 Laboratory Tests Test 06/19/18 08:30 White Blood Count 11.9 K/UL (4.8-10.8) H Red Blood Count 3.44 M/UL (4.70-6.10) L Hemoglobin 11.4 G/DL (14.2-18.0) L Hematocrit 32.3 % (42.0-52.0) L Mean Corpuscular Volume 94 FL (80-99) Mean Corpuscular Hemoglobin 33.3 PG (27.0-31.0) H Mean Corpuscular Hemoglobin Concent 35.4 G/DL (32.0-36.0) Red Cell Distribution Width 11.6 % (11.6-14.8) Platelet Count 357 K/UL (150-450) Mean Platelet Volume 5.4 FL (6.5-10.1) L Neutrophils (%) (Auto) % (45.0-75.0) Lymphocytes (%) (Auto) % (20.0-45.0) Monocytes (%) (Auto) % (1.0-10.0) Eosinophils (%) (Auto) % (0.0-3.0) Basophils (%) (Auto) % (0.0-2.0) Differential Total Cells Counted 100 Neutrophils % (Manual) 85 % (45-75) H Lymphocytes % (Manual) 8 % (20-45) L Monocytes % (Manual) 6 % (1-10) Eosinophils % (Manual) 0 % (0-3) Basophils % (Manual) 0 % (0-2) Band Neutrophils 1 % (0-8) Platelet Estimate Adequate Platelet Morphology Normal Red Blood Cell Morphology Normal Erythrocyte Sedimentation Rate 108 MM/HR (0-20) H Sodium Level 142 MMOL/L (136-145) Potassium Level 3.6 MMOL/L (3.5-5.1) Chloride Level 107 MMOL/L (98-107) Carbon Dioxide Level 27 MMOL/L (21-32) Anion Gap 8 mmol/L (5-15) Blood Urea Nitrogen 35 mg/dL (7-18) H Creatinine 1.4 MG/DL (0.55-1.30) H Estimat Glomerular Filtration Rate mL/min (>60) Glucose Level 139 MG/DL (74-106) H Calcium Level 8.7 MG/DL (8.5-10.1) Phosphorus Level 2.1 MG/DL (2.5-4.9) L Magnesium Level 1.5 MG/DL (1.8-2.4) L Total Bilirubin 0.4 MG/DL (0.2-1.0) Aspartate Amino Transf (AST/SGOT) 30 U/L (15-37) Alanine Aminotransferase (ALT/SGPT) 44 U/L (12-78) Alkaline Phosphatase 78 U/L (46-116) C-Reactive Protein, Quantitative 4.8 mg/dL (0.00-0.90) H Total Protein 7.7 G/DL (6.4-8.2) Albumin 2.4 G/DL (3.4-5.0) L Globulin 5.3 g/dL Albumin/Globulin Ratio 0.5 (1.0-2.7) L Microbiology Date/Time Source Procedure Growth Status 06/17/18 14:05 Blood Blood Culture - Preliminary Gram Positive Cocci Resulted 06/17/18 13:55 Blood Blood Culture - Preliminary NO GROWTH AFTER 48 HOURS Resulted 06/17/18 13:55 Urine,Clean Catch Urine Culture - Final Escherichia Coli Complete Serg Ortiz MD Jun 20, 2018 07:39
[2018-06-20 07:54] LABS: BASOPHILS % (AUTO) 0.5 % (0.0-2.0); EOSINOPHILS % (AUTO) 1.4 % (0.0-3.0); HEMATOCRIT 33.7 % (42.0-52.0); HEMOGLOBIN 11.1 G/DL (14.2-18.0); LYMPHOCYTES % (AUTO) 18.8 % (20.0-45.0); MEAN CORPUSCULAR VOLUME 94 FL (80-99); NEUTROPHILS % (AUTO) 73.4 % (45.0-75.0); PLATELET COUNT 368 K/UL (150-450); RED CELL DISTRIBUTION WIDTH 11.4 % (11.6-14.8); WHITE BLOOD COUNT 10.5 K/UL (4.8-10.8)
[2018-06-20] MEDS: Imdur 30mg tab ORAL SCH ×2 (08:35→08:59)
[2018-06-20] MEDS: ARIPiprazole 2mg tab ORAL SCH (08:35)
[2018-06-20] MEDS: Heparin 5000 units/ml inj SUBQ SCH ×2 (08:36→21:17)
[2018-06-20 08:52] LABS: ALANINE AMINOTRANSFERASE 46 U/L (12-78); ALBUMIN 2.3 G/DL (3.4-5.0); ALBUMIN/GLOBULIN RATIO 0.4 (1.0-2.7); ALKALINE PHOSPHATASE 77 U/L (46-116); ANION GAP 11 mmol/L (5-15); ASPARTATE AMINO TRANSFERASE 33 U/L (15-37); BILIRUBIN,TOTAL 0.4 MG/DL (0.2-1.0); BLOOD UREA NITROGEN 21 mg/dL (7-18); CALCIUM 8.8 MG/DL (8.5-10.1); CARBON DIOXIDE 26 MMOL/L (21-32); CHLORIDE 105 MMOL/L (98-107); CREATININE 1.1 MG/DL (0.55-1.30); PHOSPHORUS 2.2 MG/DL (2.5-4.9); POTASSIUM 3.5 MMOL/L (3.5-5.1); SODIUM 142 MMOL/L (136-145)
[2018-06-20] MEDS ORDERED: Vancomycin 750mg/NS 250ml IVPB SCH (10:00)
--- NOTE | 2018-06-20 12:55 | Pulmonology Progress Note ---
Assessment/Plan Problems: (1) Pyelonephritis (2) Dehydration (3) CVA (cerebral vascular accident) (4) Hypokalemia (5) Dementia (6) Hypertension Assessment/Plan improving iv fluids check electrolytes monitor BP f/u urine cultures f/u renal function cardio note appreciated med/surg Subjective ROS Limited/Unobtainable: No Constitutional: Reports: no symptoms HEENT: Repors: no symptoms Respiratory: Reports: no symptoms Allergies: Coded Allergies: No Known Allergies (Unverified , 06/17/18) Objective Last 24 Hour Vital Signs Date Time Temp Pulse Resp B/P (MAP) Pulse Ox O2 Delivery O2 Flow Rate FiO2 06/20/18 12:00 97.9 67 18 127/60 (82) 98 97.9 06/20/18 08:59 124/63 06/20/18 08:59 60 124/63 06/20/18 08:46 Room Air 06/20/18 08:00 97.2 60 124/63 (83) 97 97.2 06/20/18 08:00 82 06/20/18 04:00 98.2 80 22 121/71 (88) 97 98.2 06/20/18 04:00 77 06/20/18 00:00 97.7 72 20 135/76 (95) 97 97.7 06/20/18 00:00 89 06/19/18 21:00 Room Air 06/19/18 20:11 82 18 Room Air 21 06/19/18 20:00 98.2 106 18 132/76 (94) 99 98.2 06/19/18 20:00 106 06/19/18 16:00 98.2 79 18 129/62 (84) 98 98.2 06/19/18 16:00 68 Intake and Output 06/19/18 06/20/18 19:00 07:00 Intake Total 2846 ml 1550 ml Output Total 1800 ml 600 ml Balance 1046 ml 950 ml Intake Oral 840 ml 200 ml IV Total 2006 ml 1350 ml Output Urine Total 1800 ml 600 ml # Bowel Movements 1 2 General Appearance: WD/WN HEENT: normocephalic, anicteric Respiratory/Chest: chest wall non-tender, normal breath sounds Cardiovascular: regular rhythm Abdomen: soft, non tender, non distended Extremities: no cyanosis Skin: no rash Microbiology Date/Time Source Procedure Growth Status 06/17/18 14:05 Blood Blood Culture - Preliminary Staphylococcus Sp Coag Neg Resulted 06/17/18 13:55 Blood Blood Culture - Preliminary NO GROWTH AFTER 48 HOURS Resulted 06/17/18 20:00 Nasal Nares MRSA Culture - Final NO METHICILLIN RESISTANT STAPH AUREUS... Complete 06/17/18 13:55 Urine,Clean Catch Urine Culture - Final Escherichia Coli Complete 06/17/18 20:00 Rectum VRE Culture - Final Enterococcus Faecalis - Vre Complete 06/17/18 20:00 Rectum - Final NO CARBAPENEM-RESISTANT ENTEROBACTERI... Complete Laboratory Tests 06/20/18 06:30: White Blood Count 10.5, Red Blood Count 3.60L, Hemoglobin 11.1L, Hematocrit 33.7L, Mean Corpuscular Volume 94, Mean Corpuscular Hemoglobin 31.0, Mean Corpuscular Hemoglobin Concent 33.0, Red Cell Distribution Width 11.4L, Platelet Count 368, Mean Platelet Volume 5.1L, Neutrophils (%) (Auto) 73.4, Lymphocytes (%) (Auto) 18.8L, Monocytes (%) (Auto) 6.0, Eosinophils (%) (Auto) 1.4, Basophils (%) (Auto) 0.5, Sodium Level 142, Potassium Level 3.5, Chloride Level 105, Carbon Dioxide Level 26, Anion Gap 11, Blood Urea Nitrogen 21H, Creatinine 1.1, Estimat Glomerular Filtration Rate , Glucose Level 100, Calcium Level 8.8, Phosphorus Level 2.2L, Magnesium Level 1.2L, Total Bilirubin 0.4, Aspartate Amino Transf (AST/SGOT) 33, Alanine Aminotransferase (ALT/SGPT) 46, Alkaline Phosphatase 77, Total Protein 7.5, Albumin 2.3L, Globulin 5.2, Albumin/ Globulin Ratio 0.4L Current Medications Medications (Trade) Dose Ordered Sig/Marleni Route PRN Reason Start Time Stop Time Status Last Admin Dose Admin Acetaminophen (Tylenol) 650 mg Q4H PRN ORAL fever (temp>100.5F) 06/17/18 17:45 07/17/18 17:44 Al Hydroxide/Mg Hydroxide (Mylanta II) 30 ml Q6H PRN ORAL dyspepsia 06/17/18 17:45 07/17/18 17:44 Albuterol/ Ipratropium (Albuterol/ Ipratropium) 3 ml Q4H PRN HHN Shortness of Breath 06/17/18 17:45 06/22/18 17:44 Amlodipine Besylate (Norvasc) 5 mg DAILY ORAL 06/18/18 09:00 07/18/18 08:59 06/20/18 08:59 Amoxicillin (Amoxil) 500 mg EVERY 8 HOURS ORAL 06/19/18 13:00 06/26/18 12:59 06/20/18 06:29 Aripiprazole (Abilify) 2 mg DAILY ORAL 06/18/18 09:00 07/18/18 08:59 06/20/18 08:35 Atorvastatin Calcium (Lipitor) 20 mg BEDTIME ORAL 06/17/18 21:00 07/17/18 20:59 06/19/18 21:53 Clonidine HCl (Catapres Tab) 0.1 mg Q4H PRN ORAL For High Blood Pressure 06/17/18 17:45 07/17/18 17:44 Dextrose (Dextrose 50%) 25 ml STAT PRN IV Hypoglycemia 06/17/18 17:45 07/17/18 17:44 Dextrose (Dextrose 50%) 50 ml STAT PRN IV Hypoglycemia 06/17/18 17:45 07/17/18 17:44 Heparin Sodium (Porcine) (Heparin 5000 units/ml) 5,000 units EVERY 12 HOURS SUBQ 06/17/18 21:00 07/17/18 20:59 06/20/18 08:36 Isosorbide Mononitrate (Imdur) 30 mg DAILY ORAL 06/18/18 09:00 07/18/18 08:59 06/20/18 08:59 Lorazepam (Ativan 2mg/ml 1ml) 0.5 mg Q4H PRN IV For Anxiety 06/17/18 17:45 06/24/18 17:44 Morphine Sulfate (Morphine Sulfate) 1 mg Q4H PRN IVP For Pain 7-10 06/17/18 17:45 06/24/18 17:44 Nitroglycerin (Ntg) 0.4 mg Q5M X 3 DOSES PRN SL Prn Chest Pain 06/17/18 17:45 07/17/18 17:44 Ondansetron HCl (Zofran) 4 mg Q6H PRN IVP Nausea & Vomiting 06/17/18 17:45 07/17/18 17:44 Polyethylene Glycol (Miralax) 17 gm HSPRN PRN ORAL Constipation 06/17/18 17:45 07/17/18 17:44 Sodium Chloride 1,000 ml @ 150 mls/hr Q6H40M IV 06/18/18 13:00 07/18/18 12:59 06/20/18 10:05 Temazepam (Restoril) 15 mg HSPRN PRN ORAL Insomnia 06/17/18 17:45 06/24/18 17:44 06/17/18 20:52 Vancomycin HCl (Vanco rx to dose) 1 ea DAILY PRN MISC Per rx protocol 06/19/18 07:15 07/19/18 07:14 Vancomycin/Sodium Chloride 250 ml @ 166.667 mls/hr Q24H IVPB 06/20/18 10:00 06/25/18 09:59 06/20/18 10:05 Jose Rooney MD Jun 20, 2018 12:55
--- NOTE | 2018-06-20 14:19 | Internal Med Progress Note ---
Subjective Date of Service: Jun 20, 2018 Physician Name Noe Sanchez Attending Physician Trenton Brantley MD Current Medications Medications (Trade) Dose Ordered Sig/Marleni Route PRN Reason Start Time Stop Time Status Last Admin Dose Admin Acetaminophen (Tylenol) 650 mg Q4H PRN ORAL fever (temp>100.5F) 06/17/18 17:45 07/17/18 17:44 Al Hydroxide/Mg Hydroxide (Mylanta II) 30 ml Q6H PRN ORAL dyspepsia 06/17/18 17:45 07/17/18 17:44 Albuterol/ Ipratropium (Albuterol/ Ipratropium) 3 ml Q4H PRN HHN Shortness of Breath 06/17/18 17:45 06/22/18 17:44 Amlodipine Besylate (Norvasc) 5 mg DAILY ORAL 06/18/18 09:00 07/18/18 08:59 06/20/18 08:59 Amoxicillin (Amoxil) 500 mg EVERY 8 HOURS ORAL 06/19/18 13:00 06/26/18 12:59 06/20/18 06:29 Aripiprazole (Abilify) 2 mg DAILY ORAL 06/18/18 09:00 07/18/18 08:59 06/20/18 08:35 Atorvastatin Calcium (Lipitor) 20 mg BEDTIME ORAL 06/17/18 21:00 07/17/18 20:59 06/19/18 21:53 Clonidine HCl (Catapres Tab) 0.1 mg Q4H PRN ORAL For High Blood Pressure 06/17/18 17:45 07/17/18 17:44 Dextrose (Dextrose 50%) 25 ml STAT PRN IV Hypoglycemia 06/17/18 17:45 07/17/18 17:44 Dextrose (Dextrose 50%) 50 ml STAT PRN IV Hypoglycemia 06/17/18 17:45 07/17/18 17:44 Heparin Sodium (Porcine) (Heparin 5000 units/ml) 5,000 units EVERY 12 HOURS SUBQ 06/17/18 21:00 07/17/18 20:59 06/20/18 08:36 Isosorbide Mononitrate (Imdur) 30 mg DAILY ORAL 06/18/18 09:00 07/18/18 08:59 06/20/18 08:59 Lorazepam (Ativan 2mg/ml 1ml) 0.5 mg Q4H PRN IV For Anxiety 06/17/18 17:45 06/24/18 17:44 Morphine Sulfate (Morphine Sulfate) 1 mg Q4H PRN IVP For Pain 7-10 06/17/18 17:45 06/24/18 17:44 Nitroglycerin (Ntg) 0.4 mg Q5M X 3 DOSES PRN SL Prn Chest Pain 06/17/18 17:45 07/17/18 17:44 Ondansetron HCl (Zofran) 4 mg Q6H PRN IVP Nausea & Vomiting 06/17/18 17:45 07/17/18 17:44 Polyethylene Glycol (Miralax) 17 gm HSPRN PRN ORAL Constipation 06/17/18 17:45 07/17/18 17:44 Sodium Chloride 1,000 ml @ 150 mls/hr Q6H40M IV 06/18/18 13:00 07/18/18 12:59 06/20/18 10:05 Temazepam (Restoril) 15 mg HSPRN PRN ORAL Insomnia 06/17/18 17:45 06/24/18 17:44 06/17/18 20:52 Vancomycin HCl (Vanco rx to dose) 1 ea DAILY PRN MISC Per rx protocol 06/19/18 07:15 07/19/18 07:14 Vancomycin/Sodium Chloride 250 ml @ 166.667 mls/hr Q24H IVPB 06/20/18 10:00 06/25/18 09:59 06/20/18 10:05 Allergies: Coded Allergies: No Known Allergies (Unverified , 06/17/18) ROS Limited/Unobtainable: Yes Subjective 83 YO M admitted with syncope, now UTI and sepsis. Cover for Int Med Dr Brantley. Objective Last Vital Signs Date Time Temp Pulse Resp B/P (MAP) Pulse Ox O2 Delivery O2 Flow Rate FiO2 06/20/18 12:02 75 06/20/18 12:00 97.9 18 127/60 (82) 98 97.9 06/20/18 08:46 Room Air 06/19/18 20:11 21 Laboratory Tests Test 06/20/18 06:30 White Blood Count 10.5 K/UL (4.8-10.8) Red Blood Count 3.60 M/UL (4.70-6.10) L Hemoglobin 11.1 G/DL (14.2-18.0) L Hematocrit 33.7 % (42.0-52.0) L Mean Corpuscular Volume 94 FL (80-99) Mean Corpuscular Hemoglobin 31.0 PG (27.0-31.0) Mean Corpuscular Hemoglobin Concent 33.0 G/DL (32.0-36.0) Red Cell Distribution Width 11.4 % (11.6-14.8) L Platelet Count 368 K/UL (150-450) Mean Platelet Volume 5.1 FL (6.5-10.1) L Neutrophils (%) (Auto) 73.4 % (45.0-75.0) Lymphocytes (%) (Auto) 18.8 % (20.0-45.0) L Monocytes (%) (Auto) 6.0 % (1.0-10.0) Eosinophils (%) (Auto) 1.4 % (0.0-3.0) Basophils (%) (Auto) 0.5 % (0.0-2.0) Sodium Level 142 MMOL/L (136-145) Potassium Level 3.5 MMOL/L (3.5-5.1) Chloride Level 105 MMOL/L (98-107) Carbon Dioxide Level 26 MMOL/L (21-32) Anion Gap 11 mmol/L (5-15) Blood Urea Nitrogen 21 mg/dL (7-18) H Creatinine 1.1 MG/DL (0.55-1.30) Estimat Glomerular Filtration Rate mL/min (>60) Glucose Level 100 MG/DL (74-106) Calcium Level 8.8 MG/DL (8.5-10.1) Phosphorus Level 2.2 MG/DL (2.5-4.9) L Magnesium Level 1.2 MG/DL (1.8-2.4) L Total Bilirubin 0.4 MG/DL (0.2-1.0) Aspartate Amino Transf (AST/SGOT) 33 U/L (15-37) Alanine Aminotransferase (ALT/SGPT) 46 U/L (12-78) Alkaline Phosphatase 77 U/L (46-116) Total Protein 7.5 G/DL (6.4-8.2) Albumin 2.3 G/DL (3.4-5.0) L Globulin 5.2 g/dL Albumin/Globulin Ratio 0.4 (1.0-2.7) L Microbiology Date/Time Source Procedure Growth Status 06/17/18 20:00 Nasal Nares MRSA Culture - Final NO METHICILLIN RESISTANT STAPH AUREUS... Complete 06/17/18 20:00 Rectum VRE Culture - Final Enterococcus Faecalis - Vre Complete 06/17/18 20:00 Rectum - Final NO CARBAPENEM-RESISTANT ENTEROBACTERI... Complete Intake and Output 06/19/18 06/20/18 19:00 07:00 Intake Total 2846 ml 1550 ml Output Total 1800 ml 600 ml Balance 1046 ml 950 ml Intake Oral 840 ml 200 ml IV Total 2006 ml 1350 ml Output Urine Total 1800 ml 600 ml # Bowel Movements 1 2 Objective General Appearance: no apparent distress, alert, thin EENT: PERRL/EOMI, normal ENT inspection, TMs normal Neck: non-tender, normal alignment, supple, normal inspection Cardiovascular: normal peripheral pulses, normal rate, regular rhythm, no gallop/murmur, no JVD Respiratory/Chest: chest wall non-tender, lungs clear, normal breath sounds, no respiratory distress, no accessory muscle use Abdomen: normal bowel sounds, non tender, soft, no organomegaly, no mass Extremities: normal range of motion, non-tender 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 Coli. continue oral amoxicillin per ID (5) Sepsis Assessment & Plan: Coag neg staph. Continue vanco per ID (6) Syncope (7) Hypertension Assessment & Plan: Continue amlodipine (8) CVA (cerebral vascular accident) Status: unchanged Noe Sanchez MD Jun 20, 2018 14:19
--- NOTE | 2018-06-20 16:14 | Cardiology Report ---
APPROVED REPORT EKG Measurement Heart [id number] Sinus rhythm with marked sinus arrhythmia Left axis deviation Right bundle branch block Abnormal ECG
[2018-06-20] MEDS ORDERED: Nitroglycerin Subl 0.4mg tab SL PRN (16:15)
[2018-06-20] MEDS ORDERED: Morphine Sulfate 2mg/ml Inj IVP PRN (17:45)
[2018-06-20] MEDS ORDERED: Mylanta II UD 30ml ORAL PRN (17:45)
[2018-06-20] MEDS ORDERED: Albuterol/Ipratropium 3ml neb HHN PRN (17:45)
[2018-06-20] MEDS ORDERED: Miralax 17gm pkt ORAL PRN (17:45)
[2018-06-20] MEDS ORDERED: LORazepam Inj 2mg/ml 1ml IV PRN (17:45)
[2018-06-20] MEDS: Atorvastatin 20mg tab ORAL SCH (21:15)
[2018-06-21] VITALS: BP 115/71
[2018-06-21 04:00] VITALS: BP 125/72
[2018-06-21 07:43] LABS: BASOPHILS % (AUTO) 0.4 % (0.0-2.0); EOSINOPHILS % (AUTO) 0.8 % (0.0-3.0); HEMATOCRIT 35.9 % (42.0-52.0); HEMOGLOBIN 12.2 G/DL (14.2-18.0); LYMPHOCYTES % (AUTO) 14.9 % (20.0-45.0); MEAN CORPUSCULAR VOLUME 93 FL (80-99); MONOCYTES % (AUTO) 4.3 % (1.0-10.0); NEUTROPHILS % (AUTO) 79.7 % (45.0-75.0); PLATELET COUNT 371 K/UL (150-450); RED BLOOD COUNT 3.85 M/UL (4.70-6.10); RED CELL DISTRIBUTION WIDTH 11.6 % (11.6-14.8); WHITE BLOOD COUNT 13.2 K/UL (4.8-10.8)
[2018-06-21 08:00] VITALS: BP 131/59
[2018-06-21 08:34] LABS: ALANINE AMINOTRANSFERASE 52 U/L (12-78); ALBUMIN 2.5 G/DL (3.4-5.0); ALBUMIN/GLOBULIN RATIO 0.5 (1.0-2.7); ALKALINE PHOSPHATASE 82 U/L (46-116); ANION GAP 11 mmol/L (5-15); ASPARTATE AMINO TRANSFERASE 36 U/L (15-37); BILIRUBIN,TOTAL 0.4 MG/DL (0.2-1.0); BLOOD UREA NITROGEN 15 mg/dL (7-18); CALCIUM 8.6 MG/DL (8.5-10.1); CARBON DIOXIDE 27 MMOL/L (21-32); CHLORIDE 105 MMOL/L (98-107); PHOSPHORUS 2.7 MG/DL (2.5-4.9); POTASSIUM 3.3 MMOL/L (3.5-5.1); SODIUM 143 MMOL/L (136-145)
[2018-06-21] MEDS: ARIPiprazole 2mg tab ORAL SCH (09:10)
[2018-06-21] MEDS: Imdur 30mg tab ORAL SCH (09:10)
[2018-06-21] MEDS: Heparin 5000 units/ml inj SUBQ SCH ×2 (09:13→21:03)
--- NOTE | 2018-06-21 09:41 | Infectious Diseases Prog Note ---
Assessment/Plan Assessment/Plan 83 yo male brought in from his retirement after an episode of syncope and was found to have UTI. Probable Sepsis Leukocytosis improving UTI ( Probable complicated ) Pos UA 06/17/18 UCx EColi +ve blood Cx : GPC ? Contaminant 06/17/18 BCx GPC Afberile Syncope, sp Brain CT : Chronic and age-related changes. Negative for acute intracranial bleed or mass effect HTN A.fib CVA Dementia PLAN: -Continue Vanco # 2 - Will D/C if Blood Cx negative tomorrow -Continue oral Amoxillin d# 3 / 10 - 06/18/18 SP Zosyn # 2 -f/u Blood cx -Monitor CBC and temps - US of Kid ( Ro Obst ) Subjective Allergies: Coded Allergies: No Known Allergies (Unverified , 06/17/18) Subjective Patient awake. Reports that he has no F/C or abdominal pain Objective Vital Signs Last 24 Hour Vital Signs Date Time Temp Pulse Resp B/P (MAP) Pulse Ox O2 Delivery O2 Flow Rate FiO2 06/21/18 09:11 80 131/59 06/21/18 09:10 131/59 06/21/18 08:00 97.0 80 18 131/59 (83) 97 97.0 06/21/18 04:00 97.7 68 18 125/72 (89) 97 97.7 06/21/18 00:00 97.7 81 18 115/71 (86) 98 97.7 06/20/18 21:58 69 20 Room Air 21 06/20/18 21:00 Room Air 06/20/18 20:00 97.0 78 18 117/67 (84) 97 97.0 06/20/18 16:00 98.2 75 18 129/68 (88) 98 98.2 06/20/18 12:26 66 16 Room Air 21 06/20/18 12:02 75 06/20/18 12:00 97.9 67 18 127/60 (82) 98 97.9 Height (Feet): 5 Height (Inches): 6.00 Weight (Pounds): 150 Objective Gen: NAD,thin male, alert and cooperative HEENT: NCAT, MMM, EOMI LUNGS: CTAB, No W/C CARDS: RRR, S1, S2, No M/R/G ABD: Soft, NT, ND, No R/G, + BS NEURO: A/O x 1 (Name only) confused, Strength grossly weak Microbiology Date/Time Source Procedure Growth Status 06/19/18 08:40 Blood Blood Culture - Preliminary NO GROWTH AFTER 24 HOURS Resulted 06/19/18 08:30 Blood Blood Culture - Preliminary NO GROWTH AFTER 24 HOURS Resulted Laboratory Tests Test 06/21/18 06:30 White Blood Count 13.2 K/UL (4.8-10.8) H Red Blood Count 3.85 M/UL (4.70-6.10) L Hemoglobin 12.2 G/DL (14.2-18.0) L Hematocrit 35.9 % (42.0-52.0) L Mean Corpuscular Volume 93 FL (80-99) Mean Corpuscular Hemoglobin 31.8 PG (27.0-31.0) H Mean Corpuscular Hemoglobin Concent 34.0 G/DL (32.0-36.0) Red Cell Distribution Width 11.6 % (11.6-14.8) Platelet Count 371 K/UL (150-450) Mean Platelet Volume 5.3 FL (6.5-10.1) L Neutrophils (%) (Auto) 79.7 % (45.0-75.0) H Lymphocytes (%) (Auto) 14.9 % (20.0-45.0) L Monocytes (%) (Auto) 4.3 % (1.0-10.0) Eosinophils (%) (Auto) 0.8 % (0.0-3.0) Basophils (%) (Auto) 0.4 % (0.0-2.0) Sodium Level 143 MMOL/L (136-145) Potassium Level 3.3 MMOL/L (3.5-5.1) L Chloride Level 105 MMOL/L (98-107) Carbon Dioxide Level 27 MMOL/L (21-32) Anion Gap 11 mmol/L (5-15) Blood Urea Nitrogen 15 mg/dL (7-18) Creatinine 1.0 MG/DL (0.55-1.30) Estimat Glomerular Filtration Rate mL/min (>60) Glucose Level 97 MG/DL (74-106) Calcium Level 8.6 MG/DL (8.5-10.1) Phosphorus Level 2.7 MG/DL (2.5-4.9) Magnesium Level 1.0 MG/DL (1.8-2.4) L Total Bilirubin 0.4 MG/DL (0.2-1.0) Aspartate Amino Transf (AST/SGOT) 36 U/L (15-37) Alanine Aminotransferase (ALT/SGPT) 52 U/L (12-78) Alkaline Phosphatase 82 U/L (46-116) Total Protein 7.7 G/DL (6.4-8.2) Albumin 2.5 G/DL (3.4-5.0) L Globulin 5.2 g/dL Albumin/Globulin Ratio 0.5 (1.0-2.7) L Current Medications Medications (Trade) Dose Ordered Sig/Marleni Route PRN Reason Start Time Stop Time Status Last Admin Dose Admin Acetaminophen (Tylenol) 650 mg Q4H PRN ORAL fever (temp>100.5F) 06/20/18 17:45 07/17/18 17:44 Al Hydroxide/Mg Hydroxide (Mylanta II) 30 ml Q6H PRN ORAL dyspepsia 06/20/18 17:45 07/17/18 17:44 Albuterol/ Ipratropium (Albuterol/ Ipratropium) 3 ml Q4H PRN HHN Shortness of Breath 06/20/18 17:45 06/22/18 17:44 Amlodipine Besylate (Norvasc) 5 mg DAILY ORAL 06/21/18 09:00 07/18/18 08:59 06/21/18 09:11 Amoxicillin (Amoxil) 500 mg EVERY 8 HOURS ORAL 06/20/18 22:00 06/26/18 12:59 06/21/18 06:20 Aripiprazole (Abilify) 2 mg DAILY ORAL 06/21/18 09:00 07/18/18 08:59 06/21/18 09:10 Atorvastatin Calcium (Lipitor) 20 mg BEDTIME ORAL 06/20/18 21:00 07/17/18 20:59 06/20/18 21:15 Clonidine HCl (Catapres Tab) 0.1 mg Q4H PRN ORAL For High Blood Pressure 06/20/18 17:45 07/17/18 17:44 Dextrose (Dextrose 50%) 25 ml STAT PRN IV Hypoglycemia 06/20/18 17:45 07/17/18 17:44 Dextrose (Dextrose 50%) 50 ml STAT PRN IV Hypoglycemia 06/20/18 17:45 07/17/18 17:44 Heparin Sodium (Porcine) (Heparin 5000 units/ml) 5,000 units EVERY 12 HOURS SUBQ 06/20/18 21:00 07/17/18 20:59 06/21/18 09:13 Isosorbide Mononitrate (Imdur) 30 mg DAILY ORAL 06/21/18 09:00 07/18/18 08:59 06/21/18 09:10 Lorazepam (Ativan 2mg/ml 1ml) 0.5 mg Q4H PRN IV For Anxiety 06/20/18 17:45 06/24/18 17:44 Morphine Sulfate (Morphine Sulfate) 1 mg Q4H PRN IVP For Pain 7-06/20/18 17:45 06/24/18 17:44 Nitroglycerin (Ntg) 0.4 mg Q5M X 3 DOSES PRN SL Prn Chest Pain 06/20/18 16:15 07/17/18 17:44 Ondansetron HCl (Zofran) 4 mg Q6H PRN IVP Nausea & Vomiting 06/20/18 17:45 07/17/18 17:44 Polyethylene Glycol (Miralax) 17 gm HSPRN PRN ORAL Constipation 06/20/18 17:45 07/17/18 17:44 Sodium Chloride 1,000 ml @ 150 mls/hr Q6H40M IV 06/20/18 16:15 07/18/18 12:59 06/21/18 06:24 Temazepam (Restoril) 15 mg HSPRN PRN ORAL Insomnia 06/20/18 17:45 06/24/18 17:44 Vancomycin HCl (Vanco rx to dose) 1 ea DAILY PRN MISC Per rx protocol 06/21/18 09:00 07/19/18 07:14 Vancomycin/Sodium Chloride 250 ml @ 166.667 mls/hr Q24H IVPB 06/21/18 10:00 06/25/18 09:59 Serg Cuellar MD Jun 21, 2018 09:41
[2018-06-21] MEDS ORDERED: Vancomycin 750mg/NS 250ml 250 ML IVPB SCH (10:00)
--- NOTE | 2018-06-21 10:26 | Cardiology Progress Note ---
Assessment/Plan Status: stable Assessment/Plan Assessment (1) Atrial fibrillation (2) Cerebral vascular disease (3) Alzheimer's dementia (4) UTI (urinary tract infection (5) Sepsis (6) Syncope (7) Hypertension (8) CVA (cerebral vascular accident) (9) Hypokalemia (10) Dehydration Plan: IV fluids Continue Abx, awaiting final cultures Carotid US negative for significant stenosis Physical therapy/ambulate Orthostatics Aspirin Statin Monitor for hypotension on Norvasc + imdur Patient currently not on anticoagulation for afib, (fall risk?) Dispo planning Subjective Cardiovascular: Reports: no symptoms Respiratory: Reports: no symptoms Gastrointestinal/Abdominal: Reports: no symptoms Genitourinary: Reports: no symptoms Subjective No acute events, no complaints, vitals stable, uCx grew E Coli. BP normal no issues with medication. Afebrile, WBC elevated, on PO ABX, awaiting final cultures, Carotid US no significant stenosis Objective Last 24 Hour Vital Signs Date Time Temp Pulse Resp B/P (MAP) Pulse Ox O2 Delivery O2 Flow Rate FiO2 06/21/18 09:11 80 131/59 06/21/18 09:10 131/59 06/21/18 08:00 97.0 80 18 131/59 (83) 97 97.0 06/21/18 04:00 97.7 68 18 125/72 (89) 97 97.7 06/21/18 00:00 97.7 81 18 115/71 (86) 98 97.7 06/20/18 21:58 69 20 Room Air 21 06/20/18 21:00 Room Air 06/20/18 20:00 97.0 78 18 117/67 (84) 97 97.0 06/20/18 16:00 98.2 75 18 129/68 (88) 98 98.2 06/20/18 12:26 66 16 Room Air 21 06/20/18 12:02 75 06/20/18 12:00 97.9 67 18 127/60 (82) 98 97.9 General Appearance: no apparent distress, alert EENT: PERRL/EOMI, normal ENT inspection Neck: non-tender, normal alignment Rhythm: NSR Cardiovascular: normal peripheral pulses, normal rate, regular rhythm Respiratory/Chest: chest wall non-tender, lungs clear Abdomen: normal bowel sounds, non tender Extremities: normal range of motion, non-tender 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 Intake and Output 06/20/18 06/21/18 19:00 07:00 Intake Total 950.000 ml 1500 ml Output Total 1201 ml Balance -251.000 ml 1500 ml Intake Oral 400 ml IV Total 550.000 ml 1500 ml Output Urine Total 1200 ml Stool Total 1 ml # Voids 2 5 # Bowel Movements 1 Laboratory Tests Test 06/21/18 06:30 White Blood Count 13.2 K/UL (4.8-10.8) H Red Blood Count 3.85 M/UL (4.70-6.10) L Hemoglobin 12.2 G/DL (14.2-18.0) L Hematocrit 35.9 % (42.0-52.0) L Mean Corpuscular Volume 93 FL (80-99) Mean Corpuscular Hemoglobin 31.8 PG (27.0-31.0) H Mean Corpuscular Hemoglobin Concent 34.0 G/DL (32.0-36.0) Red Cell Distribution Width 11.6 % (11.6-14.8) Platelet Count 371 K/UL (150-450) Mean Platelet Volume 5.3 FL (6.5-10.1) L Neutrophils (%) (Auto) 79.7 % (45.0-75.0) H Lymphocytes (%) (Auto) 14.9 % (20.0-45.0) L Monocytes (%) (Auto) 4.3 % (1.0-10.0) Eosinophils (%) (Auto) 0.8 % (0.0-3.0) Basophils (%) (Auto) 0.4 % (0.0-2.0) Sodium Level 143 MMOL/L (136-145) Potassium Level 3.3 MMOL/L (3.5-5.1) L Chloride Level 105 MMOL/L (98-107) Carbon Dioxide Level 27 MMOL/L (21-32) Anion Gap 11 mmol/L (5-15) Blood Urea Nitrogen 15 mg/dL (7-18) Creatinine 1.0 MG/DL (0.55-1.30) Estimat Glomerular Filtration Rate mL/min (>60) Glucose Level 97 MG/DL (74-106) Calcium Level 8.6 MG/DL (8.5-10.1) Phosphorus Level 2.7 MG/DL (2.5-4.9) Magnesium Level 1.0 MG/DL (1.8-2.4) L Total Bilirubin 0.4 MG/DL (0.2-1.0) Aspartate Amino Transf (AST/SGOT) 36 U/L (15-37) Alanine Aminotransferase (ALT/SGPT) 52 U/L (12-78) Alkaline Phosphatase 82 U/L (46-116) Total Protein 7.7 G/DL (6.4-8.2) Albumin 2.5 G/DL (3.4-5.0) L Globulin 5.2 g/dL Albumin/Globulin Ratio 0.5 (1.0-2.7) L Microbiology Date/Time Source Procedure Growth Status 06/19/18 08:40 Blood Blood Culture - Preliminary NO GROWTH AFTER 24 HOURS Resulted 06/19/18 08:30 Blood Blood Culture - Preliminary NO GROWTH AFTER 24 HOURS Resulted Serg Ortiz MD Jun 21, 2018 10:26
--- NOTE | 2018-06-21 11:22 | Cardiology Report ---
APPROVED REPORT EXAM: Two-dimensional and M-mode echocardiogram with Doppler and color Doppler. INDICATION Left Ventricular Function M-Mode DIMENSIONS IVSd1.8 (0.7-1.1cm)Left Atrium (MM)2.7 (1.6-4.0cm) LVDd4.1 (3.5-5.6cm)Aortic Root4.3 (2.0-3.7cm) PWd1.4 (0.7-1.1cm)Aortic Cusp Exc.1.2 (1.5-2.0cm) LVDs2.4 (2.5-4.0cm) PWs1.8 cm Technically difficult study due to poor acoustic windows. Study quality precludes accurate assessment of regional wall motion. Normal left ventricular chamber size, systolic function and wall motion to extent visualized. Left ventricular ejection fraction estimated to be 55 %. Moderate left ventricular hypertrophy. No evidence of pericardial effusion. Left atrial size at upper limits of normal. Right cardiac chamber sizes are within normal limits. Aortic valve calcification with decreased cusp excursion c/w aortic stenosis. Mildly thickened mitral valve leaflets with normal excursion. Mild mitral annulus and aortic root calcification. Pulmonic valve not visualized. Normal tricuspid valve structure. IVC is normal in size with physiological collapse. A color flow and spectral Doppler study was performed and revealed: Mild aortic insufficiency. Peak aortic valve gradient of 24 mmHg and a mean of 8 mmHg. Aortic valve area 0.9 cm2 calculated by continuity equation. Moderate mitral regurgitation. Mitral diastolic velocities suggest mild left ventricular diastolic dysfunction (Grade I). Moderate tricuspid regurgitation. Tricuspid systolic velocities suggests peak right ventricular systolic pressure of 31 mmHg.
[2018-06-21 12:00] VITALS: BP 111/69
[2018-06-21] MEDS ORDERED: AMOXIL250 MG ORAL (14:42)
--- NOTE | 2018-06-21 14:43 | Pulmonology Progress Note ---
Assessment/Plan Problems: (1) Pyelonephritis (2) Dehydration (3) CVA (cerebral vascular accident) (4) Hypokalemia (5) Dementia (6) Hypertension Assessment/Plan Ecoli in urine is pansensitive improving iv fluids check electrolytes monitor BP f/u urine cultures f/u renal function cardio note appreciated med/surg Subjective ROS Limited/Unobtainable: No Constitutional: Reports: no symptoms HEENT: Repors: no symptoms Allergies: Coded Allergies: No Known Allergies (Unverified , 06/17/18) Objective Last 24 Hour Vital Signs Date Time Temp Pulse Resp B/P (MAP) Pulse Ox O2 Delivery O2 Flow Rate FiO2 06/21/18 12:00 97.3 76 18 111/69 (83) 98 97.3 06/21/18 09:11 80 131/59 06/21/18 09:10 131/59 06/21/18 09:00 Room Air 06/21/18 08:00 97.0 80 18 131/59 (83) 97 97.0 06/21/18 04:00 97.7 68 18 125/72 (89) 97 97.7 06/21/18 00:00 97.7 81 18 115/71 (86) 98 97.7 06/20/18 21:58 69 20 Room Air 21 06/20/18 21:00 Room Air 06/20/18 20:00 97.0 78 18 117/67 (84) 97 97.0 06/20/18 16:00 98.2 75 18 129/68 (88) 98 98.2 Intake and Output 06/20/18 06/21/18 19:00 07:00 Intake Total 950.000 ml 1500 ml Output Total 1201 ml Balance -251.000 ml 1500 ml Intake Oral 400 ml IV Total 550.000 ml 1500 ml Output Urine Total 1200 ml Stool Total 1 ml # Voids 2 5 # Bowel Movements 1 General Appearance: WD/WN HEENT: normocephalic, atraumatic Respiratory/Chest: chest wall non-tender, lungs clear Cardiovascular: normal peripheral pulses, normal rate Abdomen: normal bowel sounds, no organomegaly Genitourinary: normal external genitalia Extremities: no cyanosis Skin: no lesions 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 Microbiology Date/Time Source Procedure Growth Status 06/19/18 08:40 Blood Blood Culture - Preliminary NO GROWTH AFTER 24 HOURS Resulted 06/19/18 08:30 Blood Blood Culture - Preliminary NO GROWTH AFTER 24 HOURS Resulted Laboratory Tests 06/21/18 06:30: White Blood Count 13.2H, Red Blood Count 3.85L, Hemoglobin 12.2L, Hematocrit 35.9L, Mean Corpuscular Volume 93, Mean Corpuscular Hemoglobin 31.8H, Mean Corpuscular Hemoglobin Concent 34.0, Red Cell Distribution Width 11.6, Platelet Count 371, Mean Platelet Volume 5.3L, Neutrophils (%) (Auto) 79.7H, Lymphocytes (%) (Auto) 14.9L, Monocytes (%) (Auto) 4.3, Eosinophils (%) (Auto) 0.8, Basophils (%) (Auto) 0.4, Sodium Level 143, Potassium Level 3.3L, Chloride Level 105, Carbon Dioxide Level 27, Anion Gap 11, Blood Urea Nitrogen 15, Creatinine 1.0, Estimat Glomerular Filtration Rate , Glucose Level 97, Calcium Level 8.6, Phosphorus Level 2.7, Magnesium Level 1.0L, Total Bilirubin 0.4, Aspartate Amino Transf (AST/SGOT) 36, Alanine Aminotransferase (ALT/SGPT) 52, Alkaline Phosphatase 82, Total Protein 7.7, Albumin 2.5L, Globulin 5.2, Albumin/ Globulin Ratio 0.5L Current Medications Medications (Trade) Dose Ordered Sig/Marleni Route PRN Reason Start Time Stop Time Status Last Admin Dose Admin Acetaminophen (Tylenol) 650 mg Q4H PRN ORAL fever (temp>100.5F) 06/20/18 17:45 07/17/18 17:44 Al Hydroxide/Mg Hydroxide (Mylanta II) 30 ml Q6H PRN ORAL dyspepsia 06/20/18 17:45 07/17/18 17:44 Albuterol/ Ipratropium (Albuterol/ Ipratropium) 3 ml Q4H PRN HHN Shortness of Breath 06/20/18 17:45 06/22/18 17:44 Amlodipine Besylate (Norvasc) 5 mg DAILY ORAL 06/21/18 09:00 07/18/18 08:59 06/21/18 09:11 Amoxicillin (Amoxil) 500 mg EVERY 8 HOURS ORAL 06/20/18 22:00 06/26/18 12:59 06/21/18 13:14 Aripiprazole (Abilify) 2 mg DAILY ORAL 06/21/18 09:00 07/18/18 08:59 06/21/18 09:10 Atorvastatin Calcium (Lipitor) 20 mg BEDTIME ORAL 06/20/18 21:00 07/17/18 20:59 06/20/18 21:15 Clonidine HCl (Catapres Tab) 0.1 mg Q4H PRN ORAL For High Blood Pressure 06/20/18 17:45 07/17/18 17:44 Dextrose (Dextrose 50%) 25 ml STAT PRN IV Hypoglycemia 06/20/18 17:45 07/17/18 17:44 Dextrose (Dextrose 50%) 50 ml STAT PRN IV Hypoglycemia 06/20/18 17:45 07/17/18 17:44 Heparin Sodium (Porcine) (Heparin 5000 units/ml) 5,000 units EVERY 12 HOURS SUBQ 06/20/18 21:00 07/17/18 20:59 06/21/18 09:13 Isosorbide Mononitrate (Imdur) 30 mg DAILY ORAL 06/21/18 09:00 07/18/18 08:59 06/21/18 09:10 Lorazepam (Ativan 2mg/ml 1ml) 0.5 mg Q4H PRN IV For Anxiety 06/20/18 17:45 06/24/18 17:44 Morphine Sulfate (Morphine Sulfate) 1 mg Q4H PRN IVP For Pain 7-10 06/20/18 17:45 06/24/18 17:44 Nitroglycerin (Ntg) 0.4 mg Q5M X 3 DOSES PRN SL Prn Chest Pain 06/20/18 16:15 07/17/18 17:44 Ondansetron HCl (Zofran) 4 mg Q6H PRN IVP Nausea & Vomiting 06/20/18 17:45 07/17/18 17:44 Polyethylene Glycol (Miralax) 17 gm HSPRN PRN ORAL Constipation 06/20/18 17:45 07/17/18 17:44 Sodium Chloride 1,000 ml @ 150 mls/hr Q6H40M IV 06/20/18 16:15 07/18/18 12:59 06/21/18 13:04 Temazepam (Restoril) 15 mg HSPRN PRN ORAL Insomnia 06/20/18 17:45 06/24/18 17:44 Vancomycin HCl (Vanco rx to dose) 1 ea DAILY PRN MISC Per rx protocol 06/21/18 09:00 07/19/18 07:14 Vancomycin/Sodium Chloride 250 ml @ 166.667 mls/hr Q24H IVPB 06/21/18 10:00 06/25/18 09:59 06/21/18 10:54 Jose Rooney MD Jun 21, 2018 14:43
[2018-06-21 16:09] VITALS: BP 117/61
--- NOTE | 2018-06-21 19:42 | Internal Med Progress Note ---
Subjective Date of Service: Jun 21, 2018 Physician Name Noe Sanchez Attending Physician Trenton Brantley MD Current Medications Medications (Trade) Dose Ordered Sig/Marleni Route PRN Reason Start Time Stop Time Status Last Admin Dose Admin Acetaminophen (Tylenol) 650 mg Q4H PRN ORAL fever (temp>100.5F) 06/20/18 17:45 07/17/18 17:44 Al Hydroxide/Mg Hydroxide (Mylanta II) 30 ml Q6H PRN ORAL dyspepsia 06/20/18 17:45 07/17/18 17:44 Albuterol/ Ipratropium (Albuterol/ Ipratropium) 3 ml Q4H PRN HHN Shortness of Breath 06/20/18 17:45 06/22/18 17:44 Amlodipine Besylate (Norvasc) 5 mg DAILY ORAL 06/21/18 09:00 07/18/18 08:59 06/21/18 09:11 Amoxicillin (Amoxil) 500 mg EVERY 8 HOURS ORAL 06/20/18 22:00 06/26/18 12:59 06/21/18 13:14 Aripiprazole (Abilify) 2 mg DAILY ORAL 06/21/18 09:00 07/18/18 08:59 06/21/18 09:10 Atorvastatin Calcium (Lipitor) 20 mg BEDTIME ORAL 06/20/18 21:00 07/17/18 20:59 06/20/18 21:15 Clonidine HCl (Catapres Tab) 0.1 mg Q4H PRN ORAL For High Blood Pressure 06/20/18 17:45 07/17/18 17:44 Dextrose (Dextrose 50%) 25 ml STAT PRN IV Hypoglycemia 06/20/18 17:45 07/17/18 17:44 Dextrose (Dextrose 50%) 50 ml STAT PRN IV Hypoglycemia 06/20/18 17:45 07/17/18 17:44 Heparin Sodium (Porcine) (Heparin 5000 units/ml) 5,000 units EVERY 12 HOURS SUBQ 06/20/18 21:00 07/17/18 20:59 06/21/18 09:13 Isosorbide Mononitrate (Imdur) 30 mg DAILY ORAL 06/21/18 09:00 07/18/18 08:59 06/21/18 09:10 Lorazepam (Ativan 2mg/ml 1ml) 0.5 mg Q4H PRN IV For Anxiety 06/20/18 17:45 06/24/18 17:44 Morphine Sulfate (Morphine Sulfate) 1 mg Q4H PRN IVP For Pain 7-10 06/20/18 17:45 06/24/18 17:44 Nitroglycerin (Ntg) 0.4 mg Q5M X 3 DOSES PRN SL Prn Chest Pain 06/20/18 16:15 07/17/18 17:44 Ondansetron HCl (Zofran) 4 mg Q6H PRN IVP Nausea & Vomiting 06/20/18 17:45 07/17/18 17:44 Polyethylene Glycol (Miralax) 17 gm HSPRN PRN ORAL Constipation 06/20/18 17:45 07/17/18 17:44 Sodium Chloride 1,000 ml @ 150 mls/hr Q6H40M IV 06/20/18 16:15 07/18/18 12:59 06/21/18 13:04 Temazepam (Restoril) 15 mg HSPRN PRN ORAL Insomnia 06/20/18 17:45 06/24/18 17:44 Vancomycin HCl (Vanco rx to dose) 1 ea DAILY PRN MISC Per rx protocol 06/21/18 09:00 07/19/18 07:14 Vancomycin/Sodium Chloride 250 ml @ 166.667 mls/hr Q24H IVPB 06/21/18 10:00 06/25/18 09:59 06/21/18 10:54 Allergies: Coded Allergies: No Known Allergies (Unverified , 06/17/18) ROS Limited/Unobtainable: Yes Subjective 83 YO M admitted with syncope, now UTI and sepsis. Cover for Int Med Dr Brantley. Objective Last Vital Signs Date Time Temp Pulse Resp B/P (MAP) Pulse Ox O2 Delivery O2 Flow Rate FiO2 06/21/18 16:09 97.2 68 18 117/61 (79) 97 97.2 06/21/18 14:45 Room Air 21 Laboratory Tests Test 06/21/18 06:30 White Blood Count 13.2 K/UL (4.8-10.8) H Red Blood Count 3.85 M/UL (4.70-6.10) L Hemoglobin 12.2 G/DL (14.2-18.0) L Hematocrit 35.9 % (42.0-52.0) L Mean Corpuscular Volume 93 FL (80-99) Mean Corpuscular Hemoglobin 31.8 PG (27.0-31.0) H Mean Corpuscular Hemoglobin Concent 34.0 G/DL (32.0-36.0) Red Cell Distribution Width 11.6 % (11.6-14.8) Platelet Count 371 K/UL (150-450) Mean Platelet Volume 5.3 FL (6.5-10.1) L Neutrophils (%) (Auto) 79.7 % (45.0-75.0) H Lymphocytes (%) (Auto) 14.9 % (20.0-45.0) L Monocytes (%) (Auto) 4.3 % (1.0-10.0) Eosinophils (%) (Auto) 0.8 % (0.0-3.0) Basophils (%) (Auto) 0.4 % (0.0-2.0) Sodium Level 143 MMOL/L (136-145) Potassium Level 3.3 MMOL/L (3.5-5.1) L Chloride Level 105 MMOL/L (98-107) Carbon Dioxide Level 27 MMOL/L (21-32) Anion Gap 11 mmol/L (5-15) Blood Urea Nitrogen 15 mg/dL (7-18) Creatinine 1.0 MG/DL (0.55-1.30) Estimat Glomerular Filtration Rate mL/min (>60) Glucose Level 97 MG/DL (74-106) Calcium Level 8.6 MG/DL (8.5-10.1) Phosphorus Level 2.7 MG/DL (2.5-4.9) Magnesium Level 1.0 MG/DL (1.8-2.4) L Total Bilirubin 0.4 MG/DL (0.2-1.0) Aspartate Amino Transf (AST/SGOT) 36 U/L (15-37) Alanine Aminotransferase (ALT/SGPT) 52 U/L (12-78) Alkaline Phosphatase 82 U/L (46-116) Total Protein 7.7 G/DL (6.4-8.2) Albumin 2.5 G/DL (3.4-5.0) L Globulin 5.2 g/dL Albumin/Globulin Ratio 0.5 (1.0-2.7) L Microbiology Date/Time Source Procedure Growth Status 06/19/18 08:40 Blood Blood Culture - Preliminary NO GROWTH AFTER 24 HOURS Resulted 06/19/18 08:30 Blood Blood Culture - Preliminary NO GROWTH AFTER 24 HOURS Resulted Intake and Output 06/20/18 06/21/18 19:00 07:00 Intake Total 950.000 ml 1500 ml Output Total 1201 ml Balance -251.000 ml 1500 ml Intake Oral 400 ml IV Total 550.000 ml 1500 ml Output Urine Total 1200 ml Stool Total 1 ml # Voids 2 5 # Bowel Movements 1 Objective General Appearance: no apparent distress, alert, thin EENT: PERRL/EOMI, normal ENT inspection, TMs normal Neck: non-tender, normal alignment, supple, normal inspection Cardiovascular: normal peripheral pulses, normal rate, regular rhythm, no gallop/murmur, no JVD Respiratory/Chest: chest wall non-tender, lungs clear, normal breath sounds, no respiratory distress, no accessory muscle use Abdomen: normal bowel sounds, non tender, soft, no organomegaly, no mass Extremities: normal range of motion, non-tender 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 (2) Cerebral vascular disease (3) Alzheimer's dementia (4) UTI (urinary tract infection) Assessment & Plan: E. Coli. continue oral amoxicillin per ID (5) Sepsis Assessment & Plan: Coag neg staph. Continue vanco per ID (6) Syncope (7) Hypertension Assessment & Plan: Continue amlodipine (8) CVA (cerebral vascular accident) Status: progressing Noe Sanchez MD Jun 21, 2018 19:42
[2018-06-21 20:00] VITALS: BP 125/68
[2018-06-21] MEDS: Atorvastatin 20mg tab ORAL SCH (21:04)
--- NOTE | 2018-06-21 22:11 | General Progress Note ---
Assessment/Plan Problem List: (1) Alzheimer's dementia ICD Codes: G30.9 - Alzheimer's disease, unspecified; F02.80 - Dementia in other diseases classified elsewhere without behavioral disturbance SNOMED: 00898803 (2) Cerebral vascular disease ICD Codes: I67.9 - Cerebrovascular disease, unspecified SNOMED: 08714428 Status: stable, progressing Subjective Neurologic/Psychiatric: Reports: anxiety, depressed, emotional problems Allergies: Coded Allergies: No Known Allergies (Unverified , 06/17/18) Objective Last 24 Hour Vital Signs Date Time Temp Pulse Resp B/P (MAP) Pulse Ox O2 Delivery O2 Flow Rate FiO2 06/21/18 16:09 97.2 68 18 117/61 (79) 97 97.2 06/21/18 14:45 51 20 Room Air 21 06/21/18 12:00 97.3 76 18 111/69 (83) 98 97.3 06/21/18 09:11 80 131/59 06/21/18 09:10 131/59 06/21/18 09:00 Room Air 06/21/18 08:00 97.0 80 18 131/59 (83) 97 97.0 06/21/18 04:00 97.7 68 18 125/72 (89) 97 97.7 06/21/18 00:00 97.7 81 18 115/71 (86) 98 97.7 Intake and Output 06/20/18 06/21/18 19:00 07:00 Intake Total 950.000 ml 1500 ml Output Total 1201 ml Balance -251.000 ml 1500 ml Intake Oral 400 ml IV Total 550.000 ml 1500 ml Output Urine Total 1200 ml Stool Total 1 ml # Voids 2 5 # Bowel Movements 1 Laboratory Tests 06/21/18 06:30: White Blood Count 13.2H, Red Blood Count 3.85L, Hemoglobin 12.2L, Hematocrit 35.9L, Mean Corpuscular Volume 93, Mean Corpuscular Hemoglobin 31.8H, Mean Corpuscular Hemoglobin Concent 34.0, Red Cell Distribution Width 11.6, Platelet Count 371, Mean Platelet Volume 5.3L, Neutrophils (%) (Auto) 79.7H, Lymphocytes (%) (Auto) 14.9L, Monocytes (%) (Auto) 4.3, Eosinophils (%) (Auto) 0.8, Basophils (%) (Auto) 0.4, Sodium Level 143, Potassium Level 3.3L, Chloride Level 105, Carbon Dioxide Level 27, Anion Gap 11, Blood Urea Nitrogen 15, Creatinine 1.0, Estimat Glomerular Filtration Rate , Glucose Level 97, Calcium Level 8.6, Phosphorus Level 2.7, Magnesium Level 1.0L, Total Bilirubin 0.4, Aspartate Amino Transf (AST/SGOT) 36, Alanine Aminotransferase (ALT/SGPT) 52, Alkaline Phosphatase 82, Total Protein 7.7, Albumin 2.5L, Globulin 5.2, Albumin/ Globulin Ratio 0.5L Height (Feet): 5 Height (Inches): 6.00 Weight (Pounds): 150 General Appearance: no apparent distress, alert, confused Raulito Avilez MD Jun 21, 2018 22:11
[2018-06-22] VITALS: BP 132/72
--- NOTE | 2018-06-22 01:32 | Diagnostic Imaging Report ---
APPROVED REPORT CPT Code: 07333 Vascular Symptoms CVA/TIA: Doppler Spectral Velocity Analysis RightLeft RIGHT SIDE: ECA - Imaging reveals no significant plaque in the external carotid artery. internal carotid artery. The Doppler signal indicates the degree of stenosis is minimal (10%) in the common carotid, and (20%) in the internal carotid arteries. VERTEBRAL - The vertebral artery is patent, without evidence of stenosis or steal. arteries. The Doppler spectral flow analysis indicates the degree of stenosis is minimal (10-20%) in the common carotid artery, (30%) in the internal carotid artery, and (10%) in the external carotid artery. VERTEBRAL- The vertebral artery is patent, without evidence of stenosis or steal.
[2018-06-22 04:00] VITALS: BP 135/74
[2018-06-22 08:06] VITALS: BP 110/63
--- NOTE | 2018-06-22 08:49 | Infectious Diseases Prog Note ---
Assessment/Plan Assessment/Plan 83 yo male brought in from his halfway after an episode of syncope and was found to have UTI. Probable Sepsis Leukocytosis improving UTI ( Probable complicated ) Pos UA 06/17/18 UCx EColi 06/17/18 BCx CoNS Afebrile Syncope, sp Brain CT : Chronic and age-related changes. Negative for acute intracranial bleed or mass effect HTN A.fib CVA Dementia PLAN: -D/C Vanco # 3 -Continue oral Amoxillin d# 4 / 10 - 06/18/18 SP Zosyn # 2 -f/u Blood cx -Monitor CBC and temps Subjective Allergies: Coded Allergies: No Known Allergies (Unverified , 06/17/18) Subjective Patient awake. Afebrile Objective Vital Signs Last 24 Hour Vital Signs Date Time Temp Pulse Resp B/P (MAP) Pulse Ox O2 Delivery O2 Flow Rate FiO2 06/22/18 08:06 98.2 77 16 110/63 (79) 96 98.2 06/22/18 04:00 97.4 80 18 135/74 (94) 99 97.4 06/22/18 00:00 98.0 66 18 132/72 (92) 97 98.0 06/21/18 21:00 Room Air 06/21/18 20:00 98.2 68 18 125/68 (87) 97 98.2 06/21/18 20:00 62 20 Room Air 21 06/21/18 16:09 97.2 68 18 117/61 (79) 97 97.2 06/21/18 14:45 51 20 Room Air 21 06/21/18 12:00 97.3 76 18 111/69 (83) 98 97.3 06/21/18 09:11 80 131/59 06/21/18 09:10 131/59 06/21/18 09:00 Room Air Height (Feet): 5 Height (Inches): 6.00 Weight (Pounds): 150 Objective Gen: NAD,thin male, alert HEENT: NCAT, MMM, EOMI LUNGS: CTAB, No Wheezing CARDS: RRR, S1, S2, No M/R/G ABD: Soft, NT, ND, + BS NEURO: A/O x 1 (Name only) confused, Strength grossly weak Current Medications Medications (Trade) Dose Ordered Sig/Marleni Route PRN Reason Start Time Stop Time Status Last Admin Dose Admin Acetaminophen (Tylenol) 650 mg Q4H PRN ORAL fever (temp>100.5F) 06/20/18 17:45 07/17/18 17:44 Al Hydroxide/Mg Hydroxide (Mylanta II) 30 ml Q6H PRN ORAL dyspepsia 06/20/18 17:45 07/17/18 17:44 Albuterol/ Ipratropium (Albuterol/ Ipratropium) 3 ml Q4H PRN HHN Shortness of Breath 06/20/18 17:45 06/22/18 17:44 Amlodipine Besylate (Norvasc) 5 mg DAILY ORAL 06/21/18 09:00 07/18/18 08:59 06/21/18 09:11 Amoxicillin (Amoxil) 500 mg EVERY 8 HOURS ORAL 06/20/18 22:00 06/26/18 12:59 06/22/18 05:51 Aripiprazole (Abilify) 2 mg DAILY ORAL 06/21/18 09:00 07/18/18 08:59 06/21/18 09:10 Atorvastatin Calcium (Lipitor) 20 mg BEDTIME ORAL 06/20/18 21:00 07/17/18 20:59 06/21/18 21:04 Clonidine HCl (Catapres Tab) 0.1 mg Q4H PRN ORAL For High Blood Pressure 06/20/18 17:45 07/17/18 17:44 Dextrose (Dextrose 50%) 25 ml STAT PRN IV Hypoglycemia 06/20/18 17:45 07/17/18 17:44 Dextrose (Dextrose 50%) 50 ml STAT PRN IV Hypoglycemia 06/20/18 17:45 07/17/18 17:44 Heparin Sodium (Porcine) (Heparin 5000 units/ml) 5,000 units EVERY 12 HOURS SUBQ 06/20/18 21:00 07/17/18 20:59 06/21/18 21:03 Isosorbide Mononitrate (Imdur) 30 mg DAILY ORAL 06/21/18 09:00 07/18/18 08:59 06/21/18 09:10 Lorazepam (Ativan 2mg/ml 1ml) 0.5 mg Q4H PRN IV For Anxiety 06/20/18 17:45 06/24/18 17:44 Morphine Sulfate (Morphine Sulfate) 1 mg Q4H PRN IVP For Pain 7-10 06/20/18 17:45 06/24/18 17:44 Nitroglycerin (Ntg) 0.4 mg Q5M X 3 DOSES PRN SL Prn Chest Pain 06/20/18 16:15 07/17/18 17:44 Ondansetron HCl (Zofran) 4 mg Q6H PRN IVP Nausea & Vomiting 06/20/18 17:45 07/17/18 17:44 Polyethylene Glycol (Miralax) 17 gm HSPRN PRN ORAL Constipation 06/20/18 17:45 07/17/18 17:44 Sodium Chloride 1,000 ml @ 150 mls/hr Q6H40M IV 06/20/18 16:15 07/18/18 12:59 06/22/18 08:31 Temazepam (Restoril) 15 mg HSPRN PRN ORAL Insomnia 06/20/18 17:45 06/24/18 17:44 Vancomycin HCl (Vanco rx to dose) 1 ea DAILY PRN MISC Per rx protocol 06/21/18 09:00 07/19/18 07:14 Vancomycin/Sodium Chloride 250 ml @ 166.667 mls/hr Q24H IVPB 06/21/18 10:00 06/25/18 09:59 06/21/18 10:54 Serg Cuellar MD Jun 22, 2018 08:49
[2018-06-22 09:11] LABS: BASOPHILS % (AUTO) 0.4 % (0.0-2.0); EOSINOPHILS % (AUTO) 0.7 % (0.0-3.0); HEMATOCRIT 33.7 % (42.0-52.0); HEMOGLOBIN 11.3 G/DL (14.2-18.0); LYMPHOCYTES % (AUTO) 11.4 % (20.0-45.0); MEAN CORPUSCULAR VOLUME 94 FL (80-99); MONOCYTES % (AUTO) 3.6 % (1.0-10.0); NEUTROPHILS % (AUTO) 83.9 % (45.0-75.0); PLATELET COUNT 394 K/UL (150-450); RED BLOOD COUNT 3.59 M/UL (4.70-6.10); RED CELL DISTRIBUTION WIDTH 11.7 % (11.6-14.8); WHITE BLOOD COUNT 15.4 K/UL (4.8-10.8)
[2018-06-22 09:24] LABS: ANION GAP 6 mmol/L (5-15); BLOOD UREA NITROGEN 12 mg/dL (7-18); CALCIUM 8.7 MG/DL (8.5-10.1); CARBON DIOXIDE 29 MMOL/L (21-32); CHLORIDE 105 MMOL/L (98-107); CREATININE 1.1 MG/DL (0.55-1.30); POTASSIUM 4.5 MMOL/L (3.5-5.1); SODIUM 140 MMOL/L (136-145)
[2018-06-22] MEDS: ARIPiprazole 2mg tab ORAL SCH (10:27)
[2018-06-22] MEDS: Heparin 5000 units/ml inj SUBQ SCH (10:29)
[2018-06-22] MEDS ORDERED: 1/2 NS 1000ml IV ONE (11:08)
--- NOTE | 2018-06-22 11:35 | Cardiology Progress Note ---
Assessment/Plan Status: stable Assessment/Plan Assessment (1) Atrial fibrillation (2) Cerebral vascular disease (3) Alzheimer's dementia (4) UTI (urinary tract infection (5) Sepsis (6) Syncope (7) Hypertension (8) CVA (cerebral vascular accident) (9) Hypokalemia (10) Dehydration Plan: IV fluids Continue Abx for ten days Carotid US negative for significant stenosis Physical therapy/ambulate Orthostatics negative Aspirin Statin Monitor for hypotension on Norvasc + imdur Patient currently not on anticoagulation for afib, (fall risk?) Dispo planning Subjective Cardiovascular: Reports: no symptoms Respiratory: Reports: no symptoms Gastrointestinal/Abdominal: Reports: no symptoms Genitourinary: Reports: no symptoms Subjective No acute events, no complaints, vitals stable, uCx grew E Coli. BP normal no issues with medication. Afebrile, WBC elevated, on PO ABX,, Carotid US no significant stenosis Plan for discharge Objective Last 24 Hour Vital Signs Date Time Temp Pulse Resp B/P (MAP) Pulse Ox O2 Delivery O2 Flow Rate FiO2 06/22/18 10:27 64 118/56 06/22/18 09:35 66 20 Room Air 21 06/22/18 09:00 Room Air 06/22/18 08:06 98.2 77 16 110/63 (79) 96 98.2 06/22/18 04:00 97.4 80 18 135/74 (94) 99 97.4 06/22/18 00:00 98.0 66 18 132/72 (92) 97 98.0 06/21/18 21:00 Room Air 06/21/18 20:00 98.2 68 18 125/68 (87) 97 98.2 06/21/18 20:00 62 20 Room Air 21 06/21/18 16:09 97.2 68 18 117/61 (79) 97 97.2 06/21/18 14:45 51 20 Room Air 21 06/21/18 12:00 97.3 76 18 111/69 (83) 98 97.3 General Appearance: no apparent distress, alert EENT: PERRL/EOMI, normal ENT inspection Neck: non-tender, normal alignment Rhythm: NSR Cardiovascular: normal peripheral pulses, normal rate, regular rhythm Respiratory/Chest: chest wall non-tender, lungs clear Abdomen: normal bowel sounds, non tender Extremities: normal range of motion, non-tender Neurologic: slot key 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6-14.8) Platelet Count 394 K/UL (150-450) Mean Platelet Volume 5.0 FL (6.5-10.1) L Neutrophils (%) (Auto) 83.9 % (45.0-75.0) H Lymphocytes (%) (Auto) 11.4 % (20.0-45.0) L Monocytes (%) (Auto) 3.6 % (1.0-10.0) Eosinophils (%) (Auto) 0.7 % (0.0-3.0) Basophils (%) (Auto) 0.4 % (0.0-2.0) Sodium Level 140 MMOL/L (136-145) Potassium Level 4.5 MMOL/L (3.5-5.1) Chloride Level 105 MMOL/L (98-107) Carbon Dioxide Level 29 MMOL/L (21-32) Anion Gap 6 mmol/L (5-15) Blood Urea Nitrogen 12 mg/dL (7-18) Creatinine 1.1 MG/DL (0.55-1.30) Estimat Glomerular Filtration Rate mL/min (>60) Glucose Level 138 MG/DL (74-106) H Calcium Level 8.7 MG/DL (8.5-10.1) Serg Ortiz MD Jun 22, 2018 11:35
[2018-06-22 12:00] VITALS: BP 115/53
--- NOTE | 2018-06-22 12:17 | Pulmonology Progress Note ---
Assessment/Plan Problems: (1) Pyelonephritis (2) Dehydration (3) CVA (cerebral vascular accident) (4) Hypokalemia (5) Dementia (6) Hypertension Assessment/Plan wbc is higher today Ecoli in urine is pansensitive improving iv fluids check electrolytes monitor BP f/u urine cultures f/u renal function med/surg Subjective ROS Limited/Unobtainable: No Constitutional: Reports: no symptoms HEENT: Repors: no symptoms Respiratory: Reports: no symptoms Allergies: Coded Allergies: No Known Allergies (Unverified , 06/17/18) Objective Last 24 Hour Vital Signs Date Time Temp Pulse Resp B/P (MAP) Pulse Ox O2 Delivery O2 Flow Rate FiO2 06/22/18 12:00 98.2 74 21 115/53 (73) 97 98.2 06/22/18 10:27 64 118/56 06/22/18 09:35 66 20 Room Air 21 06/22/18 09:00 Room Air 06/22/18 08:06 98.2 77 16 110/63 (79) 96 98.2 06/22/18 04:00 97.4 80 18 135/74 (94) 99 97.4 06/22/18 00:00 98.0 66 18 132/72 (92) 97 98.0 06/21/18 21:00 Room Air 06/21/18 20:00 98.2 68 18 125/68 (87) 97 98.2 06/21/18 20:00 62 20 Room Air 21 06/21/18 16:09 97.2 68 18 117/61 (79) 97 97.2 06/21/18 14:45 51 20 Room Air 21 Intake and Output 06/21/18 06/22/18 19:00 07:00 Intake Total 1945 ml 720 ml Balance 1945 ml 720 ml Intake Oral 720 ml 120 ml IV Total 1225 ml 600 ml # Voids 2 4 # Bowel Movements 2 1 General Appearance: WD/WN HEENT: normocephalic, atraumatic Respiratory/Chest: chest wall non-tender, lungs clear Cardiovascular: normal peripheral pulses, normal rate Abdomen: normal bowel sounds, soft, non tender Genitourinary: normal external genitalia Extremities: no cyanosis Skin: no rash 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 Lymphatic: no neck adenopathy Laboratory Tests 06/22/18 09:00: White Blood Count 15.4H, Red Blood Count 3.59L, Hemoglobin 11.3L, Hematocrit 33.7L, Mean Corpuscular Volume 94, Mean Corpuscular Hemoglobin 31.5H, Mean Corpuscular Hemoglobin Concent 33.5, Red Cell Distribution Width 11.7, Platelet Count 394, Mean Platelet Volume 5.0L, Neutrophils (%) (Auto) 83.9H, Lymphocytes (%) (Auto) 11.4L, Monocytes (%) (Auto) 3.6, Eosinophils (%) (Auto) 0.7, Basophils (%) (Auto) 0.4, Sodium Level 140, Potassium Level 4.5, Chloride Level 105, Carbon Dioxide Level 29, Anion Gap 6, Blood Urea Nitrogen 12, Creatinine 1.1, Estimat Glomerular Filtration Rate , Glucose Level 138H, Calcium Level 8.7 Current Medications Medications (Trade) Dose Ordered Sig/Marleni Route PRN Reason Start Time Stop Time Status Last Admin Dose Admin Acetaminophen (Tylenol) 650 mg Q4H PRN ORAL fever (temp>100.5F) 06/20/18 17:45 07/17/18 17:44 Al Hydroxide/Mg Hydroxide (Mylanta II) 30 ml Q6H PRN ORAL dyspepsia 06/20/18 17:45 07/17/18 17:44 Albuterol/ Ipratropium (Albuterol/ Ipratropium) 3 ml Q4H PRN HHN Shortness of Breath 06/20/18 17:45 06/22/18 17:44 Amlodipine Besylate (Norvasc) 5 mg DAILY ORAL 06/21/18 09:00 07/18/18 08:59 06/22/18 10:27 Amoxicillin (Amoxil) 500 mg EVERY 8 HOURS ORAL 06/20/18 22:00 06/26/18 12:59 06/22/18 05:51 Aripiprazole (Abilify) 2 mg DAILY ORAL 06/21/18 09:00 07/18/18 08:59 06/22/18 10:27 Atorvastatin Calcium (Lipitor) 20 mg BEDTIME ORAL 06/20/18 21:00 07/17/18 20:59 06/21/18 21:04 Clonidine HCl (Catapres Tab) 0.1 mg Q4H PRN ORAL For High Blood Pressure 06/20/18 17:45 07/17/18 17:44 Dextrose (Dextrose 50%) 25 ml STAT PRN IV Hypoglycemia 06/20/18 17:45 07/17/18 17:44 Dextrose (Dextrose 50%) 50 ml STAT PRN IV Hypoglycemia 06/20/18 17:45 07/17/18 17:44 Heparin Sodium (Porcine) (Heparin 5000 units/ml) 5,000 units EVERY 12 HOURS SUBQ 06/20/18 21:00 07/17/18 20:59 06/22/18 10:29 Isosorbide Mononitrate (Imdur) 30 mg DAILY ORAL 06/21/18 09:00 07/18/18 08:59 06/21/18 09:10 Lorazepam (Ativan 2mg/ml 1ml) 0.5 mg Q4H PRN IV For Anxiety 06/20/18 17:45 06/24/18 17:44 Morphine Sulfate (Morphine Sulfate) 1 mg Q4H PRN IVP For Pain 7-10 06/20/18 17:45 06/24/18 17:44 Nitroglycerin (Ntg) 0.4 mg Q5M X 3 DOSES PRN SL Prn Chest Pain 06/20/18 16:15 07/17/18 17:44 Ondansetron HCl (Zofran) 4 mg Q6H PRN IVP Nausea & Vomiting 06/20/18 17:45 07/17/18 17:44 Polyethylene Glycol (Miralax) 17 gm HSPRN PRN ORAL Constipation 06/20/18 17:45 07/17/18 17:44 Sodium Chloride 1,000 ml @ 150 mls/hr Q6H40M IV 06/20/18 16:15 07/18/18 12:59 06/22/18 08:31 Temazepam (Restoril) 15 mg HSPRN PRN ORAL Insomnia 06/20/18 17:45 06/24/18 17:44 Jose Rooney MD Jun 22, 2018 12:17
[2018-06-22] MEDS: Imdur 30mg tab ORAL SCH (13:08)
--- NOTE | 2018-06-22 15:05 | General Progress Note ---
Assessment/Plan Status: stable Assessment/Plan Encephalopathy due to [facility] [place]ementia chronic -seroquel prn -cont to monitor -cont abilify Subjective Date patient seen: Jun 22, 2018 Neurologic/Psychiatric: Reports: anxiety, depressed, emotional problems Allergies: Coded Allergies: No Known Allergies (Unverified , 06/17/18) Objective Last 24 Hour Vital Signs Date Time Temp Pulse Resp B/P (MAP) Pulse Ox O2 Delivery O2 Flow Rate FiO2 06/22/18 13:08 131/82 06/22/18 12:00 98.2 74 21 115/53 (73) 97 98.2 06/22/18 10:27 64 118/56 06/22/18 09:35 66 20 Room Air 21 06/22/18 09:00 Room Air 06/22/18 08:06 98.2 77 16 110/63 (79) 96 98.2 06/22/18 04:00 97.4 80 18 135/74 (94) 99 97.4 06/22/18 00:00 98.0 66 18 132/72 (92) 97 98.0 06/21/18 21:00 Room Air 06/21/18 20:00 98.2 68 18 125/68 (87) 97 98.2 06/21/18 20:00 62 20 Room Air 21 06/21/18 16:09 97.2 68 18 117/61 (79) 97 97.2 Intake and Output 06/21/18 06/22/18 19:00 07:00 Intake Total 1945 ml 720 ml Balance 1945 ml 720 ml Intake Oral 720 ml 120 ml IV Total 1225 ml 600 ml # Voids 2 4 # Bowel Movements 2 1 Laboratory Tests 06/22/18 09:00: White Blood Count 15.4H, Red Blood Count 3.59L, Hemoglobin 11.3L, Hematocrit 33.7L, Mean Corpuscular Volume 94, Mean Corpuscular Hemoglobin 31.5H, Mean Corpuscular Hemoglobin Concent 33.5, Red Cell Distribution Width 11.7, Platelet Count 394, Mean Platelet Volume 5.0L, Neutrophils (%) (Auto) 83.9H, Lymphocytes (%) (Auto) 11.4L, Monocytes (%) (Auto) 3.6, Eosinophils (%) (Auto) 0.7, Basophils (%) (Auto) 0.4, Sodium Level 140, Potassium Level 4.5, Chloride Level 105, Carbon Dioxide Level 29, Anion Gap 6, Blood Urea Nitrogen 12, Creatinine 1.1, Estimat Glomerular Filtration Rate , Glucose Level 138H, Calcium Level 8.7 Height (Feet): 5 Height (Inches): 6.00 Weight (Pounds): 150 General Appearance: no apparent distress, alert, confused, agitated Raulito Avilez MD Jun 22, 2018 15:05
--- NOTE | 2018-06-22 15:06 | Psych Consult Progress Note ---
Psych Consult Progress Note Consult 06/20/18 Encephalopathy due to [facility] [place] Dementia chronic -seroquel prn -cont to monitor Vital Signs Last 24 Hour Vital Signs Date Time Temp Pulse Resp B/P (MAP) Pulse Ox O2 Delivery O2 Flow Rate FiO2 06/22/18 13:08 131/82 06/22/18 12:00 98.2 74 21 115/53 (73) 97 98.2 06/22/18 10:27 64 118/56 06/22/18 09:35 66 20 Room Air 21 06/22/18 09:00 Room Air 06/22/18 08:06 98.2 77 16 110/63 (79) 96 98.2 06/22/18 04:00 97.4 80 18 135/74 (94) 99 97.4 06/22/18 00:00 98.0 66 18 132/72 (92) 97 98.0 06/21/18 21:00 Room Air 06/21/18 20:00 98.2 68 18 125/68 (87) 97 98.2 06/21/18 20:00 62 20 Room Air 21 06/21/18 16:09 97.2 68 18 117/61 (79) 97 97.2 Labs Laboratory Tests Test 06/22/18 09:00 White Blood Count 15.4 K/UL (4.8-10.8) H Red Blood Count 3.59 M/UL (4.70-6.10) L Hemoglobin 11.3 G/DL (14.2-18.0) L Hematocrit 33.7 % (42.0-52.0) L Mean Corpuscular Volume 94 FL (80-99) Mean Corpuscular Hemoglobin 31.5 PG (27.0-31.0) H Mean Corpuscular Hemoglobin Concent 33.5 G/DL (32.0-36.0) Red Cell Distribution Width 11.7 % (11.6-14.8) Platelet Count 394 K/UL (150-450) Mean Platelet Volume 5.0 FL (6.5-10.1) L Neutrophils (%) (Auto) 83.9 % (45.0-75.0) H Lymphocytes (%) (Auto) 11.4 % (20.0-45.0) L Monocytes (%) (Auto) 3.6 % (1.0-10.0) Eosinophils (%) (Auto) 0.7 % (0.0-3.0) Basophils (%) (Auto) 0.4 % (0.0-2.0) Sodium Level 140 MMOL/L (136-145) Potassium Level 4.5 MMOL/L (3.5-5.1) Chloride Level 105 MMOL/L (98-107) Carbon Dioxide Level 29 MMOL/L (21-32) Anion Gap 6 mmol/L (5-15) Blood Urea Nitrogen 12 mg/dL (7-18) Creatinine 1.1 MG/DL (0.55-1.30) Estimat Glomerular Filtration Rate mL/min (>60) Glucose Level 138 MG/DL (74-106) H Calcium Level 8.7 MG/DL (8.5-10.1) Medications Current Medications Medications (Trade) Dose Ordered Sig/Marleni Route PRN Reason Start Time Stop Time Status Last Admin Dose Admin Acetaminophen (Tylenol) 650 mg Q4H PRN ORAL fever (temp>100.5F) 06/20/18 17:45 07/17/18 17:44 Al Hydroxide/Mg Hydroxide (Mylanta II) 30 ml Q6H PRN ORAL dyspepsia 06/20/18 17:45 07/17/18 17:44 Albuterol/ Ipratropium (Albuterol/ Ipratropium) 3 ml Q4H PRN HHN Shortness of Breath 06/20/18 17:45 06/22/18 17:44 Amlodipine Besylate (Norvasc) 5 mg DAILY ORAL 06/21/18 09:00 07/18/18 08:59 06/22/18 10:27 Amoxicillin (Amoxil) 500 mg EVERY 8 HOURS ORAL 06/20/18 22:00 06/26/18 12:59 06/22/18 14:34 Aripiprazole (Abilify) 2 mg DAILY ORAL 06/21/18 09:00 07/18/18 08:59 06/22/18 10:27 Atorvastatin Calcium (Lipitor) 20 mg BEDTIME ORAL 06/20/18 21:00 07/17/18 20:59 06/21/18 21:04 Clonidine HCl (Catapres Tab) 0.1 mg Q4H PRN ORAL For High Blood Pressure 06/20/18 17:45 07/17/18 17:44 Dextrose (Dextrose 50%) 25 ml STAT PRN IV Hypoglycemia 06/20/18 17:45 07/17/18 17:44 Dextrose (Dextrose 50%) 50 ml STAT PRN IV Hypoglycemia 06/20/18 17:45 07/17/18 17:44 Heparin Sodium (Porcine) (Heparin 5000 units/ml) 5,000 units EVERY 12 HOURS SUBQ 06/20/18 21:00 07/17/18 20:59 06/22/18 10:29 Isosorbide Mononitrate (Imdur) 30 mg DAILY ORAL 06/21/18 09:00 07/18/18 08:59 06/22/18 13:08 Lorazepam (Ativan 2mg/ml 1ml) 0.5 mg Q4H PRN IV For Anxiety 06/20/18 17:45 06/24/18 17:44 Morphine Sulfate (Morphine Sulfate) 1 mg Q4H PRN IVP For Pain 7-10 06/20/18 17:45 06/24/18 17:44 Nitroglycerin (Ntg) 0.4 mg Q5M X 3 DOSES PRN SL Prn Chest Pain 06/20/18 16:15 07/17/18 17:44 Ondansetron HCl (Zofran) 4 mg Q6H PRN IVP Nausea & Vomiting 06/20/18 17:45 07/17/18 17:44 Polyethylene Glycol (Miralax) 17 gm HSPRN PRN ORAL Constipation 06/20/18 17:45 07/17/18 17:44 Sodium Chloride 1,000 ml @ 150 mls/hr Q6H40M IV 06/20/18 16:15 07/18/18 12:59 06/22/18 08:31 Temazepam (Restoril) 15 mg HSPRN PRN ORAL Insomnia 06/20/18 17:45 06/24/18 17:44 Raulito Avilez MD Jun 22, 2018 15:06
[2018-06-22 16:00] VITALS: BP 142/69
--- NOTE | 2018-06-22 18:37 | Internal Med Progress Note ---
Subjective Date of Service: Jun 22, 2018 Physician Name Noe Sanchez Attending Physician Trenton Brantley MD Allergies: Coded Allergies: No Known Allergies (Unverified , 06/17/18) ROS Limited/Unobtainable: Yes Subjective 83 YO M admitted with syncope, now UTI and sepsis. Cover for Int Med Dr Brantley. Objective Last Vital Signs Date Time Temp Pulse Resp B/P (MAP) Pulse Ox O2 Delivery O2 Flow Rate FiO2 06/22/18 16:00 98.1 72 22 142/69 (93) 99 98.1 06/22/18 09:35 Room Air 21 Laboratory Tests Test 06/22/18 09:00 White Blood Count 15.4 K/UL (4.8-10.8) H Red Blood Count 3.59 M/UL (4.70-6.10) L Hemoglobin 11.3 G/DL (14.2-18.0) L Hematocrit 33.7 % (42.0-52.0) L Mean Corpuscular Volume 94 FL (80-99) Mean Corpuscular Hemoglobin 31.5 PG (27.0-31.0) H Mean Corpuscular Hemoglobin Concent 33.5 G/DL (32.0-36.0) Red Cell Distribution Width 11.7 % (11.6-14.8) Platelet Count 394 K/UL (150-450) Mean Platelet Volume 5.0 FL (6.5-10.1) L Neutrophils (%) (Auto) 83.9 % (45.0-75.0) H Lymphocytes (%) (Auto) 11.4 % (20.0-45.0) L Monocytes (%) (Auto) 3.6 % (1.0-10.0) Eosinophils (%) (Auto) 0.7 % (0.0-3.0) Basophils (%) (Auto) 0.4 % (0.0-2.0) Sodium Level 140 MMOL/L (136-145) Potassium Level 4.5 MMOL/L (3.5-5.1) Chloride Level 105 MMOL/L (98-107) Carbon Dioxide Level 29 MMOL/L (21-32) Anion Gap 6 mmol/L (5-15) Blood Urea Nitrogen 12 mg/dL (7-18) Creatinine 1.1 MG/DL (0.55-1.30) Estimat Glomerular Filtration Rate mL/min (>60) Glucose Level 138 MG/DL (74-106) H Calcium Level 8.7 MG/DL (8.5-10.1) Intake and Output 06/21/18 06/22/18 19:00 07:00 Intake Total 1945 ml 720 ml Balance 1945 ml 720 ml Intake Oral 720 ml 120 ml IV Total 1225 ml 600 ml # Voids 2 4 # Bowel Movements 2 1 Objective General Appearance: no apparent distress, alert, thin EENT: PERRL/EOMI, normal ENT inspection, TMs normal Neck: non-tender, normal alignment, supple, normal inspection Cardiovascular: normal peripheral pulses, normal rate, regular rhythm, no gallop/murmur, no JVD Respiratory/Chest: chest wall non-tender, lungs clear, normal breath sounds, no respiratory distress, no accessory muscle use Abdomen: normal bowel sounds, non tender, soft, no organomegaly, no mass Extremities: normal range of motion, non-tender 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 (2) Cerebral vascular disease (3) Alzheimer's dementia (4) UTI (urinary tract infection) Assessment & Plan: E. Coli. continue oral amoxicillin per ID (5) Sepsis Assessment & Plan: Coag neg staph. Continue vanco per ID (6) Syncope (7) Hypertension Assessment & Plan: Continue amlodipine (8) CVA (cerebral vascular accident) Assessment/Plan Discharge to [facility] Noe Sanchez MD Jun 22, 2018 18:37
--- NOTE | 2018-06-24 13:56 | Discharge Summary ---
Discharge Summary Discharge Summary _ DATE OF ADMISSION: [] DATE OF DISCHARGE: [] REASON FOR ADMISSION: [] 83 years old male with past medical history of atrial fibrillation, hyperlipidemia, hypertension, CVA, dementia, had a syncopal episodes at the jail facility. For evaluation on endoscopic at the emergency department patient denied any pain. Patient was a poor historian given on underlying chronic dementia. Vital signs reveal low blood pressure 82/54. Otherwise patient was afebrile and pulse oximetry was stable in room air. Laboratory workup revealed leukocytosis WBC 12.7. Hemoglobin 11, hematocrit 32.8. Urinalysis with evidence of UTI. Potassium 2.8. BU and 76, creatinine 2.3. Lactic acid 2.3. Troponin negative.. CT of the head revealed no acute process. Patient admitted with diagnosis of syncope pyelonephritis is probably sepsis hypokalemia, acute kidney injury on chronic renal insufficiency severe dehydration with hypovolemia CONSULTANTS: flexo press operator dr. 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 Avilez [facility] COURSE: [] Patient admitted and started on the IV fluids and empiric antibiotic. ID specialist closely follow. Urine culture revealed Escherichia coli. Blood culture initially revealed 1 out of 4. Lococo coagulase-negative repeated blood culture were negative. Staphylococcus, glistening negative likely contaminant as per ID specialist on antibiotic regimen optimized failure on ID specialist recommendation patient was discharged on oral on antibiotics to be continued for total of 10 days. Product Support Representative closely follow. CT of the abdomen had test done in emergency room revealed no acute intracranial pathology. Echocardiogram revealed preserved ejection fraction 55% and overall follow no wall motion abnormality, right ventricular systolic pressure of 31 and evidence of moderate left ventricular hypertrophy. Carotid duplex was essentially negative. Epistatic vital signs were negative. Patient was on on antiplatelet therapy with aspirin statin and statin was continued. Lipid panel was stable. Pressure was managed with calcium channel jhony and on him to on. Heartrate and remained stable. Anticoagulation for atrial fibrillation given high risk for fall as per flexo press operator. 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 Precaution maintain. Patient clinically on a [employer] seen and evaluated patient diagnosed patient with encephalopathy secondary to general medical condition chronic dementia. Psychiatric medication regimen was optimized patient was stable for discharge back to jail facility for continuation of care. Renal ultrasound revealed bilateral moderate hydronephrosis, normal kidneys echogenicity. Renal parameters electrolytes were closely monitored, electrolytes replaced as needed. Potassium with magnesium and phosphorus. Nephrotoxins were avoided. Prior to discharge hemoglobin BU and 12 creatinine 1.1 potassium 4.5. TSH was within normal limits. FINAL DIAGNOSES: Syncope likely secondary to sepsis and severe dehydration Sepsis Complicated UTI/pyelonephritis with Escherichia coli Atrial fibrillation Acute kidney injury on chronic renal insufficiency Severe dehydration with hypovolemia Cerebrovascular disease with a history of CVA Hypokalemia Encephalopathy secondary to general medical condition Chronic dementia DISCHARGE MEDICATIONS: See Medication Reconciliation list. DISCHARGE INSTRUCTIONS: Patient was discharged to the jail facility. Follow up with medical doctor at the facility. I have been assigned to dictate discharge summary for this account. I was not involved in the patient's management. Yuliana Cano NP Jun 24, 2018 13:56
== END 2018-06-22 18:26 | DRG 871 ==
LOC: EDBD 13:13 → EMR 14:00 → 2E 15:00 → EDBEDREQ 16:28 → 2E 20:58 → 4E 06-20 16:04
DX: A41.9 Sepsis, unspecified organism (principal); G93.40 Encephalopathy, unspecified; N39.0 Urinary tract infection, site not specified; N17.9 Acute kidney failure, unspecified; N12 Tubulo-interstitial nephritis, not specified as acute or chronic; E86.0 Dehydration; B96.20 Unspecified Escherichia coli [E. coli] as the cause of diseases classified elsewhere; I48.91 Unspecified atrial fibrillation; I12.9 Hypertensive chronic kidney disease with stage 1 through stage 4 chronic kidney disease, or unspecified chronic kidney disease; N18.9 Chronic kidney disease, unspecified; E86.1 Hypovolemia; Z86.73 Personal history of transient ischemic attack (TIA), and cerebral infarction without residual deficits; E87.6 Hypokalemia; F03.90 Unspecified dementia, unspecified severity, without behavioral disturbance, psychotic disturbance, mood disturbance, and anxiety
CPT/HCPCS: 36415; 70450; 71045; 76770; 80048; 80053; 80061; 81003; 82550; 82553; 83605; 83735; 84100; 84443; 84484; 85007; 85025; 85610; 85651; 85730; 86140; 87040; 87081; 87086; 87181; 93005; 93306; 93880; 94664; 96374; 96375; 99285; J8499

== ENCOUNTER 2018-08-20 16:50 | Inpatient (IN) | payer MEDICARE, MEDICAID ==
[~2018-08-20] VITALS: Ht 165.1 cm; Wt 55.9 kg
[~2018-08-20 16:50] MED LIST: ABILIFY2 MG ORAL; ACETAMINOPHEN-1 EAC1 ORAL; AMLODIPINE BESYL5 MG ORAL; AMOXIL250 MG ORAL; ATORVASTATIN CA20 MG ORAL; FUROSEMIDE40 MG ORAL; HYZAAR 100-12.1 EACH ORAL; ISOSORBIDE MONO30 M1 PO; POTASSIUM CHLO10 ME2 PO
[2018-08-20 16:55] VITALS: BP 162/80
[2018-08-20] MEDS ORDERED: Albuterol ud Inhalation HHN ONE (17:00)
[2018-08-20 17:08] LABS: BASOPHILS % (AUTO) 0.3 % (0.0-2.0); MEAN CORPUSCULAR VOLUME 96 FL (80-99); NEUTROPHILS % (AUTO) 81.6 % (45.0-75.0); PLATELET COUNT 348 K/UL (150-450); RED BLOOD COUNT 3.86 M/UL (4.70-6.10); RED CELL DISTRIBUTION WIDTH 12.4 % (11.6-14.8)
[2018-08-20 17:18] LABS: APPEARANCE,URINE SLIGHTLY CLOUDY; BILIRUBIN, URINE NEGATIVE (NEGATIVE); COLOR,URINE PALE YELLOW; GLUCOSE, URINE (UA) NEGATIVE (NEGATIVE); KETONES,URINE NEGATIVE (NEGATIVE); LEUKOCYTE ESTERASE ,URINE 3+ (NEGATIVE); NITRITE,URINE NEGATIVE (NEGATIVE); PH,URINE 6 (4.5-8.0); PROTEIN,URINE 2+ (NEGATIVE); UROBILINOGEN,URINE NORMAL MG/DL (0.0-1.0)
[2018-08-20 17:21] LABS: ANION GAP 13 mmol/L (5-15); BLOOD UREA NITROGEN 111 mg/dL (7-18); CALCIUM 10.6 MG/DL (8.5-10.1); CARBON DIOXIDE 28 MMOL/L (21-32); CHLORIDE 108 MMOL/L (98-107); CREATININE 3.2 MG/DL (0.55-1.30); POTASSIUM 3.9 MMOL/L (3.5-5.1); SODIUM 149 MMOL/L (136-145)
--- NOTE | 2018-08-20 17:27 | Emergency Room Report ---
History of Present Illness General Chief Complaint: Dyspnea/Respdistress Source: Medical Record, EMS Present Illness HPI This is an 83-year-old male on the nursing care facility who offers no meaningful history who was sent from the facility for shortness of breath and hypoxia. According to paramedics the patient and O2 saturation in the 80s and was started on bag valve mask. Unknown onset. Allergies: Coded Allergies: No Known Allergies (Unverified , 06/17/18) Patient History Limited by: other - dementia Past Surgical History: unable to obtain Pertinent Family History: unable to obtain Nursing Documentation-[facility] Past Medical History: No History, Except For Hx Cardiac Problems: No - A-fib, hyperlipidemia Hx Hypertension: Yes Hx Cancer: No Hx Gastrointestinal Problems: No Hx Neurological Problems: Yes - dementia Hx Cerebrovascular Accident: Yes - TIA Review of Systems All Other Systems: limited Physical Exam Vital Signs Date Time Temp Pulse Resp B/P (MAP) Pulse Ox O2 Delivery O2 Flow Rate FiO2 08/20/18 16:50 94 18 124/55 90 Non-Rebreather 15.0 Sp02 EP Interpretation: abnormal General Appearance: moderate distress Neck: normal inspection, supple, thyroid normal Respiratory: rhonchi, wheezing Cardiovascular #1: irregularly irregular Neurologic: other - unable to assess Skin: no rash Medical Decision Making Diagnostic Impression: Primary Impression: Dehydration Additional Impression: Sepsis ER Course Patient was emergently seen and evaluated. Patient was weaned off the oxygen. The patient was given IV fluids for volume resuscitation. At delivery concern for possible sepsis. Blood work was reviewed. The patient was started on IV Rocephin as well. His lactic acid is elevated as well. Septic shock was considered however unlikely. Patient is afebrile. Patient was given 30 mL/kg bolus for IV fluids. Patient will be admitted to the telemetry unit. Laboratory Tests Test 08/20/18 14:25 08/20/18 16:55 08/20/18 17:10 08/20/18 17:30 Arterial Blood pH 7.498 (7.350-7.450) Arterial Blood Partial Pressure CO2 35.6 mmHg (35.0-45.0) Arterial Blood Partial Pressure O2 301.8 mmHg (75.0-100.0) H Arterial Blood HCO3 27.0 mmol/L (22.0-26.0) H Arterial Blood Oxygen Saturation 99.1 % (95-100) Arterial Blood Base Excess 3.9 (-2-2) H Manuel Test Positive White Blood Count 15.0 K/UL (4.8-10.8) H Red Blood Count 3.86 M/UL (4.70-6.10) L Hemoglobin 13.0 G/DL (14.2-18.0) L Hematocrit 37.0 % (42.0-52.0) L Mean Corpuscular Volume 96 FL (80-99) Mean Corpuscular Hemoglobin 33.5 PG (27.0-31.0) H Mean Corpuscular Hemoglobin Concent 35.0 G/DL (32.0-36.0) Red Cell Distribution Width 12.4 % (11.6-14.8) Platelet Count 348 K/UL (150-450) Mean Platelet Volume 5.5 FL (6.5-10.1) L Neutrophils (%) (Auto) 81.6 % (45.0-75.0) H Lymphocytes (%) (Auto) 11.0 % (20.0-45.0) L Monocytes (%) (Auto) 7.0 % (1.0-10.0) Eosinophils (%) (Auto) 0.0 % (0.0-3.0) Basophils (%) (Auto) 0.3 % (0.0-2.0) Sodium Level 149 MMOL/L (136-145) H Potassium Level 3.9 MMOL/L (3.5-5.1) Chloride Level 108 MMOL/L (98-107) H Carbon Dioxide Level 28 MMOL/L (21-32) Anion Gap 13 mmol/L (5-15) Blood Urea Nitrogen 111 mg/dL (7-18) H Creatinine 3.2 MG/DL (0.55-1.30) H Estimate Glomerular Filtration Rate mL/min (>60) Glucose Level 160 MG/DL (74-106) H Lactic Acid Level 2.90 mmol/L (0.4-2.0) H Pending Calcium Level 10.6 MG/DL (8.5-10.1) H Total Bilirubin 0.8 MG/DL (0.2-1.0) Aspartate Amino Transferase (AST) 37 U/L (15-37) Alanine Aminotransferase (ALT) 46 U/L (12-78) Alkaline Phosphatase 78 U/L (46-116) Troponin I 0.051 ng/mL (0.000-0.056) Pro-B-Type Natriuretic Peptide 4661 pg/mL (0-125) H Total Protein 9.7 G/DL (6.4-8.2) H Albumin 3.0 G/DL (3.4-5.0) L Globulin 6.7 g/dL Albumin/Globulin Ratio 0.4 (1.0-2.7) L Urine Color Pale yellow Urine Appearance Slightly cloudy Urine pH 6 (4.5-8.0) Urine Specific [place] 1.010 (1.005-1.035) Urine Protein 2+ (NEGATIVE) H Urine Glucose (UA) Negative (NEGATIVE) Urine Ketones Negative (NEGATIVE) Urine Blood 5+ (NEGATIVE) H Urine Nitrite Negative (NEGATIVE) Urine Bilirubin Negative (NEGATIVE) Urine Urobilinogen Normal MG/DL (0.0-1.0) Urine Leukocyte Esterase 3+ (NEGATIVE) H Urine RBC 20-30 /HPF (0 - 0) H Urine WBC 40-60 /HPF (0 - 0) H Urine Squamous Epithelial Cells None /LPF (NONE/OCC) Urine Amorphous Sediment Moderate /LPF (NONE) H Urine Bacteria Moderate /HPF (NONE) H EKG Diagnostic Results Rate: tachycardiac, other - 117 bpm. Atrial fibrillation ASA given to the pt in ED: No Chest X-Ray Diagnostic Results Chest X-Ray Diagnostic Results : Chest X-Ray Ordered: Yes # of Views/Limited/Complete: 1 View Indication: Shortness of Breath PA Xray: Interpretation reviewed Interpretation: no consolidation, no effusion, no pneumothorax Last Vital Signs Date Time Temp Pulse Resp B/P (MAP) Pulse Ox O2 Delivery O2 Flow Rate FiO2 08/20/18 16:50 94 18 124/55 90 Non-Rebreather 15.0 Disposition: ADMITTED INPATIENT Admit Decision Time: 20:52 Condition: Serious EHSANKRISTOPHEREde Aug 20, 2018 17:27
[2018-08-20 17:33] LABS: ALANINE AMINOTRANSFERASE 46 U/L (12-78); ALBUMIN/GLOBULIN RATIO 0.4 (1.0-2.7); ALKALINE PHOSPHATASE 78 U/L (46-116); ASPARTATE AMINO TRANSFERASE 37 U/L (15-37); BILIRUBIN,TOTAL 0.8 MG/DL (0.2-1.0)
--- NOTE | 2018-08-20 18:04 | Diagnostic Imaging Report ---
EXAM: XR Chest, 1 View CLINICAL HISTORY: Shortness of breath TECHNIQUE: Frontal view of the chest. COMPARISON: Images from prior exam performed 06/17/2018 was unavailable at the time of interpretation, only prior report was available. FINDINGS: Lungs: Bilateral pulmonary hyperinflation and hyperlucent lungs. No consolidation. Pleural space: Unremarkable. No pneumothorax. Heart: Unremarkable. No cardiomegaly. Mediastinum: Unremarkable. Bones/joints: No acute osseous abnormality. IMPRESSION: No acute cardiopulmonary process. COPD.
[2018-08-20] MEDS ORDERED: Lidocaine 1% MPF 10mg/ml 5ml INJ ONE (18:30)
[2018-08-20] MEDS ORDERED: AMLODIPINE BES2.5 MG ORAL (20:03)
[2018-08-20 22:00] VITALS: BP 126/48
[2018-08-21] VITALS: BP 104/68
[2018-08-21] MEDS: D5W w/KCl 20mEq 1,000 ML IV SCH ×3 (03:17→22:16)
[2018-08-21 04:00] VITALS: BP 141/67
[2018-08-21 07:55] LABS: BASOPHILS % (AUTO) 0.3 % (0.0-2.0); EOSINOPHILS % (AUTO) 0.1 % (0.0-3.0); HEMATOCRIT 33.3 % (42.0-52.0); HEMOGLOBIN 11.2 G/DL (14.2-18.0); MEAN CORPUSCULAR VOLUME 94 FL (80-99); MONOCYTES % (AUTO) 8.6 % (1.0-10.0); NEUTROPHILS % (AUTO) 75.9 % (45.0-75.0); PLATELET COUNT 294 K/UL (150-450); RED BLOOD COUNT 3.54 M/UL (4.70-6.10); RED CELL DISTRIBUTION WIDTH 12.7 % (11.6-14.8)
[2018-08-21 08:00] VITALS: BP 137/62
[2018-08-21] MEDS: ARIPiprazole 2mg tab ORAL SCH (08:11)
[2018-08-21] MEDS: Heparin 5000 units/ml inj SUBQ SCH ×2 (08:13→21:02)
[2018-08-21 08:25] LABS: ALANINE AMINOTRANSFERASE 38 U/L (12-78); ALBUMIN 2.5 G/DL (3.4-5.0); ALBUMIN/GLOBULIN RATIO 0.5 (1.0-2.7); ALKALINE PHOSPHATASE 67 U/L (46-116); ANION GAP 12 mmol/L (5-15); ASPARTATE AMINO TRANSFERASE 31 U/L (15-37); BILIRUBIN,TOTAL 0.5 MG/DL (0.2-1.0); BLOOD UREA NITROGEN 106 mg/dL (7-18); CALCIUM 9.3 MG/DL (8.5-10.1); CARBON DIOXIDE 28 MMOL/L (21-32); CHLORIDE 114 MMOL/L (98-107); CREATININE 2.5 MG/DL (0.55-1.30); PHOSPHORUS 4.3 MG/DL (2.5-4.9); POTASSIUM 3.2 MMOL/L (3.5-5.1); SODIUM 154 MMOL/L (136-145)
[2018-08-21 12:00] VITALS: BP 117/80
[2018-08-21 16:00] VITALS: BP 141/67
--- NOTE | 2018-08-21 16:32 | History & Physical ---
History and Physical History & Physicial Dictated for Int Med-Dr Medina no. [id number]. Noe Sanchez MD Aug 21, 2018 16:32
--- NOTE | 2018-08-21 17:45 | History and Physical Report ---
DATE OF ADMISSION: 08/20/2018 CHIEF COMPLAINT: The patient is an 83-year-old male, who presents with a chief complaint of shortness of breath. HISTORY OF PRESENT ILLNESS: The patient is a resident of [facility]. The patient states he became short of breath yesterday. The patient became extremely short of breath. The staff at [facility] called 911. The patient was found to have oxygen saturation in the 80s. The patient was transported to [place] emergency room for evaluation. The patient was found to be hypoxic with oxygen saturation in the 80s. The patient is admitted with shortness of breath and hypoxia to rule out pneumonia. PAST MEDICAL HISTORY: Significant for, 1. Hypertension. 2. Atrial fibrillation. 3. Cerebrovascular disease. 4. Alzheimer's dementia. 5. Hypercholesterolemia. PAST SURGICAL HISTORY: The patient denies. CURRENT MEDICATIONS: 1. Tylenol with Codeine #3 one tablet p.o. q.4 hours p.r.n. 2. Amlodipine 2.5 mg p.o. daily. 3. Abilify 2 mg p.o. daily. 4. Atorvastatin 20 mg p.o. at bedtime. 5. Isosorbide mononitrate 30 mg p.o. daily. 6. Losartan/hydrochlorothiazide 100/12.5 one tab p.o. daily. ALLERGIES: No known drug allergies. SOCIAL HISTORY: The patient is and lives at [facility]. The patient denies tobacco use, having quit several years ago. The patient denies alcohol use. REVIEW OF SYSTEMS: CONSTITUTIONAL: The patient denies weight loss or weight gain. The patient denies fevers or chills. HEENT: The patient denies ear or throat pain. The patient denies headache. CARDIOVASCULAR: The patient denies palpitations or chest pain. CHEST: The patient complains of shortness of breath as above. The patient denies wheezes. ABDOMEN: The patient denies nausea, vomiting, diarrhea, or constipation. GENITOURINARY: The patient denies dysuria or increased frequency of urination. NEUROMUSCULAR: The patient denies seizures or generalized weakness. PHYSICAL EXAMINATION: VITAL SIGNS: Temperature 97.6, respirations 19, pulse 67, blood pressure 141/67, and oxygen saturation 100% on 3 liters nasal cannula. GENERAL: The patient is a well-developed and well-nourished thin-appearing male, in no apparent distress. HEENT: Eyes, pupils are equal and responsive to light and accommodation. Extraocular movements are intact. NECK: Supple without lymphadenopathy. CHEST: Lungs are clear to auscultation bilaterally without wheezes or rales. CARDIOVASCULAR: Regular rhythm and rate. S1, S2 are normal without murmurs, rubs, or gallops. ABDOMEN: Soft, nontender, and nondistended. Positive bowel sounds. No evidence of hepatosplenomegaly. Currently, no rebound or guarding noted. EXTREMITIES: Negative for clubbing, cyanosis, or edema. RECTAL/GENITAL: Refused. NEUROLOGIC: Cranial nerves II through XII are grossly intact without focal deficits. Motor strength is 5/5 bilaterally. Deep tendon reflexes are 2+ plantar. LABORATORY STUDIES: WBC 15.0, hemoglobin 13.0, hematocrit 37.0, and platelets 248,000. Sodium 149, potassium 3.9, chloride 108, CO2 28, BUN 111, creatinine 3.2, and glucose 160. [place] 4661. Troponin normal at 0.061. A chest x-ray was reported as chronic obstructive pulmonary disease changes, otherwise no acute disease. ASSESSMENT: This is an 83-year-old male, 1. Shortness of breath. 2. Hypoxia. 3. Renal failure. 4. Hypertension. 5. Atrial fibrillation. 6. Cerebrovascular disease. 7. Alzheimer's dementia. 8. Hypercholesterolemia. TREATMENT: 1. Shortness of breath/hypoxia. A Pulmonary consultation has been obtained with Dr. Jose Rooney. We will follow recommendation of Pulmonary. The patient is currently tolerating nasal cannula. The patient has been started empirically on ceftriaxone for possible pneumonia. 2. Renal failure. A Nephrology consultation was obtained with Dr. Landry. Renal failure may be secondary to dehydration. We will follow recommendations of Nephrology. 3. Hypertension. Continue losartan, hydrochlorothiazide, and amlodipine as above. 4. Atrial fibrillation. A Cardiology consultation has been obtained with Dr. Ortiz. 5. Cerebrovascular disease. The patient is status post cerebrovascular accident and transient ischemic attack. 6. Alzheimer's dementia. 7. Hypercholesteremia. Continue Lipitor as above. Noe Sanchez M.D. DR: LEIF JOB#: [id number] CC:
[2018-08-21] MEDS: cefTRIAXone 1 GM in D5W 55 ML IVPB SCH (18:00)
[2018-08-21 20:00] VITALS: BP 120/70
--- NOTE | 2018-08-21 23:10 | Consultation ---
History of Present Illness General Date patient seen: Aug 21, 2018 Chief Complaint: Dyspnea/Respdistress Present Illness HPI 83-year-old male, who presents with a chief complaint of shortness of breath. The patient is oriented to self and place he is a poor historian an has episodes of agitation. the pt is has memory impairment Allergies: Coded Allergies: No Known Allergies (Unverified , 06/17/18) Medication History Scheduled Amlodipine Besylate* (Amlodipine Besylate*), 2.5 MG ORAL DAILY, (Reported) Aripiprazole* (Abilify*), 2 MG ORAL DAILY, (Reported) Atorvastatin Calcium* (Atorvastatin Calcium*), 20 MG ORAL BEDTIME, (Reported) Isosorbide Mononitrate (Isosorbide Mononitrate Er), 30 MG PO DAILY, (Reported) Losartan/Hydrochlorothiazide 100-12.5 Tablet (Hyzaar 100-12.5 Tablet), 1 TAB ORAL DAILY, (Reported) Scheduled PRN Acetaminophen With Codeine (T#3) (Tylenol #3 Tab*), 1 TAB ORAL Q6H PRN for For Pain, (Reported) Discontinued Medications Amlodipine Besylate* (Amlodipine Besylate*), 2.5 MG ORAL DAILY, (Reported) Discontinued Reason: Prescription changed Amoxicillin* (Amoxil*), 500 MG ORAL EVERY 8 HOURS Discontinued Reason: Therapy completed Furosemide* (Lasix*), 40 MG ORAL DAILY, (Reported) Discontinued Reason: Therapy completed Potassium Chloride (Potassium Chloride), 20 MEQ PO DAILY, (Reported) Discontinued Reason: Therapy completed Patient History Limited by: medical condition History Provided By: Patient, Medical Record, PMD Healthcare decision maker Resuscitation status Full Code Advanced Directive on File Past Medical/Surgical History Past Medical/Surgical History: (1) Dementia (2) Hypertension (3) CVA (cerebral vascular accident) (4) Atrial fibrillation (5) UTI (urinary tract infection) (6) Cerebral vascular disease (7) Alzheimer's dementia (8) Dehydration (9) Sepsis (10) Weakness (11) CHF (congestive heart failure) (12) Renal failure Review of Systems Psychiatric: Reports: prior hx, anxiety, depressed feelings, emotional problems Physical Exam General Appearance: WD/WN, alert, confused, agitated Last 24 Hour Vital Signs Date Time Temp Pulse Resp B/P (MAP) Pulse Ox O2 Delivery O2 Flow Rate FiO2 08/21/18 21:00 Nasal Cannula 3.0 08/21/18 20:14 102 08/21/18 20:00 98.0 89 19 120/70 (87) 98 08/21/18 16:00 85 08/21/18 16:00 98.7 85 19 141/67 (91) 100 08/21/18 12:00 98.2 71 19 117/80 (92) 100 08/21/18 12:00 77 08/21/18 09:00 Nasal Cannula 3.0 08/21/18 08:00 67 08/21/18 08:00 97.4 68 19 137/62 (87) 100 08/21/18 04:00 70 08/21/18 04:00 97.6 67 19 141/67 (91) 100 08/21/18 02:38 Nasal Cannula 3.0 08/21/18 00:00 81 08/21/18 00:00 97.7 71 20 104/68 (80) 100 Intake and Output 08/20/18 08/21/18 18:59 06:59 Intake Total 2000 ml Output Total 0 ml Balance 2000 ml Intake Oral 0 ml IV Total 2000 ml Output Urine Total 0 ml Stool Total 0 ml # Bowel Movements 1 Laboratory Tests Test 08/21/18 06:54 White Blood Count 12.0 K/UL (4.8-10.8) H Red Blood Count 3.54 M/UL (4.70-6.10) L Hemoglobin 11.2 G/DL (14.2-18.0) L Hematocrit 33.3 % (42.0-52.0) L Mean Corpuscular Volume 94 FL (80-99) Mean Corpuscular Hemoglobin 31.7 PG (27.0-31.0) H Mean Corpuscular Hemoglobin Concent 33.7 G/DL (32.0-36.0) Red Cell Distribution Width 12.7 % (11.6-14.8) Platelet Count 294 K/UL (150-450) Mean Platelet Volume 6.1 FL (6.5-10.1) L Neutrophils (%) (Auto) 75.9 % (45.0-75.0) H Lymphocytes (%) (Auto) 15.0 % (20.0-45.0) L Monocytes (%) (Auto) 8.6 % (1.0-10.0) Eosinophils (%) (Auto) 0.1 % (0.0-3.0) Basophils (%) (Auto) 0.3 % (0.0-2.0) Sodium Level 154 MMOL/L (136-145) H Potassium Level 3.2 MMOL/L (3.5-5.1) L Chloride Level 114 MMOL/L (98-107) H Carbon Dioxide Level 28 MMOL/L (21-32) Anion Gap 12 mmol/L (5-15) Blood Urea Nitrogen 106 mg/dL (7-18) H Creatinine 2.5 MG/DL (0.55-1.30) H Estimat Glomerular Filtration Rate mL/min (>60) Glucose Level 167 MG/DL (74-106) H Calcium Level 9.3 MG/DL (8.5-10.1) Phosphorus Level 4.3 MG/DL (2.5-4.9) Magnesium Level 2.3 MG/DL (1.8-2.4) Total Bilirubin 0.5 MG/DL (0.2-1.0) Aspartate Amino Transf (AST/SGOT) 31 U/L (15-37) Alanine Aminotransferase (ALT/SGPT) 38 U/L (12-78) Alkaline Phosphatase 67 U/L (46-116) Troponin I 0.061 ng/mL (0.000-0.056) Total Protein 7.4 G/DL (6.4-8.2) Albumin 2.5 G/DL (3.4-5.0) L Globulin 4.9 g/dL Albumin/Globulin Ratio 0.5 (1.0-2.7) L Height (Feet): 5 Height (Inches): 5.00 Weight (Pounds): 100 Medications Current Medications Medications (Trade) Dose Ordered Sig/Marleni Route PRN Reason Start Time Stop Time Status Last Admin Dose Admin Acetaminophen (Tylenol) 650 mg Q6H PRN ORAL Mild Pain/Temp > 100.5 08/21/18 02:00 09/20/18 01:59 Amlodipine Besylate (Norvasc) 2.5 mg DAILY ORAL 08/22/18 09:00 09/21/18 08:59 Aripiprazole (Abilify) 2 mg DAILY ORAL 08/21/18 09:00 09/20/18 08:59 08/21/18 08:11 Ceftriaxone Sodium 1 gm/ Dextrose 55 ml @ 110 mls/hr Q24H IVPB 08/21/18 19:00 08/28/18 18:59 08/21/18 18:00 Dextrose/ Electrolytes 1,000 ml @ 100 mls/hr Q10H IV 08/21/18 03:00 09/20/18 02:59 08/21/18 22:16 Heparin Sodium (Porcine) (Heparin 5000 units/ml) 5,000 units EVERY 12 HOURS SUBQ 08/21/18 09:00 09/20/18 08:59 08/21/18 21:02 Assessment/Plan Problem List: (1) Alzheimer's dementia ICD Codes: G30.9 - Alzheimer's disease, unspecified; F02.80 - Dementia in other diseases classified elsewhere without behavioral disturbance SNOMED: 82920980 (2) Cerebral vascular disease ICD Codes: I67.9 - Cerebrovascular disease, unspecified SNOMED: 61113440 Assessment/Plan abilify 2mg qam the pt lacks capacity to make decisions. Raulito Avilez MD Aug 21, 2018 23:10
[2018-08-22] VITALS: BP 131/62
[2018-08-22 04:00] VITALS: BP 137/65
[2018-08-22 07:36] LABS: BASOPHILS % (AUTO) 0.5 % (0.0-2.0); EOSINOPHILS % (AUTO) 0.2 % (0.0-3.0); HEMATOCRIT 34.5 % (42.0-52.0); HEMOGLOBIN 11.6 G/DL (14.2-18.0); LYMPHOCYTES % (AUTO) 16.1 % (20.0-45.0); MEAN CORPUSCULAR VOLUME 95 FL (80-99); NEUTROPHILS % (AUTO) 76.3 % (45.0-75.0); PLATELET COUNT 306 K/UL (150-450); RED BLOOD COUNT 3.64 M/UL (4.70-6.10); RED CELL DISTRIBUTION WIDTH 12.1 % (11.6-14.8); WHITE BLOOD COUNT 12.2 K/UL (4.8-10.8)
[2018-08-22 07:57] LABS: ALANINE AMINOTRANSFERASE 48 U/L (12-78); ALBUMIN 2.2 G/DL (3.4-5.0); ALBUMIN/GLOBULIN RATIO 0.4 (1.0-2.7); ALKALINE PHOSPHATASE 67 U/L (46-116); ANION GAP 9 mmol/L (5-15); ASPARTATE AMINO TRANSFERASE 34 U/L (15-37); BILIRUBIN,TOTAL 0.4 MG/DL (0.2-1.0); BLOOD UREA NITROGEN 70 mg/dL (7-18); CALCIUM 9.3 MG/DL (8.5-10.1); CARBON DIOXIDE 31 MMOL/L (21-32); CHLORIDE 108 MMOL/L (98-107); CREATININE 1.9 MG/DL (0.55-1.30); PHOSPHORUS 2.3 MG/DL (2.5-4.9); POTASSIUM 3.1 MMOL/L (3.5-5.1); SODIUM 148 MMOL/L (136-145)
[2018-08-22 08:00] VITALS: BP 164/88
[2018-08-22] MEDS: ARIPiprazole 2mg tab ORAL SCH (10:02)
[2018-08-22] MEDS: D5W w/KCl 20mEq 1,000 ML IV SCH ×2 (10:03→19:59)
[2018-08-22] MEDS: Heparin 5000 units/ml inj SUBQ SCH ×2 (10:05→20:21)
[2018-08-22 10:54] LABS: CHOLESTEROL 92 MG/DL (< 200); HDL CHOLESTEROL 33 MG/DL (40-60); TRIGLYCERIDES 62 MG/DL (30-150)
[2018-08-22] MEDS ORDERED: Tubing IV Secondary IV ONE (11:01)
[2018-08-22] MEDS ORDERED: D5W 275ml ONE (11:01)
[2018-08-22 11:07] LABS: FERRITIN > 2000 NG/ML (8-388)
[2018-08-22 11:20] LABS: % IRON SATURATION 21 % (15-50); IRON 28 ug/dL (50-175); TOTAL IRON BINDING CAPACITY 132 ug/dL (250-450)
[2018-08-22 12:00] VITALS: BP 133/63
--- NOTE | 2018-08-22 12:51 | Internal Med Progress Note ---
Subjective Date of Service: Aug 22, 2018 Physician Name Noe Sanchez Attending Physician Trenton Brantley MD Current Medications Medications (Trade) Dose Ordered Sig/Marleni Route PRN Reason Start Time Stop Time Status Last Admin Dose Admin Acetaminophen (Tylenol) 650 mg Q6H PRN ORAL Mild Pain/Temp > 100.5 08/21/18 02:00 09/20/18 01:59 08/22/18 10:12 Amlodipine Besylate (Norvasc) 2.5 mg DAILY ORAL 08/22/18 09:00 09/21/18 08:59 08/22/18 10:02 Aripiprazole (Abilify) 2 mg DAILY ORAL 08/21/18 09:00 09/20/18 08:59 08/22/18 10:02 Ceftriaxone Sodium 1 gm/ Dextrose 55 ml @ 110 mls/hr Q24H IVPB 08/21/18 19:00 08/28/18 18:59 08/21/18 18:00 Dextrose/ Electrolytes 1,000 ml @ 100 mls/hr Q10H IV 08/21/18 03:00 09/20/18 02:59 08/22/18 10:03 Heparin Sodium (Porcine) (Heparin 5000 units/ml) 5,000 units EVERY 12 HOURS SUBQ 08/21/18 09:00 09/20/18 08:59 08/22/18 10:05 Potassium Chloride 100 ml @ 100 mls/hr Q1HR IVPB 08/22/18 11:00 08/22/18 12:59 08/22/18 11:41 Allergies: Coded Allergies: No Known Allergies (Unverified , 06/17/18) ROS Limited/Unobtainable: No Constitutional: Reports: no symptoms HEENT: Reports: no symptoms Cardiovascular: Reports: no symptoms Respiratory: Reports: shortness of breath Gastrointestinal/Abdominal: Reports: no symptoms Genitourinary: Reports: no symptoms Neurologic/Psychiatric: Reports: no symptoms Subjective 83 YO M admitted with shortness of breath. Now CHF and UTI. Cover for Int Med- Dr Brantley Objective Last Vital Signs Date Time Temp Pulse Resp B/P (MAP) Pulse Ox O2 Delivery O2 Flow Rate FiO2 08/22/18 12:00 99.0 79 18 133/63 (86) 98 08/22/18 09:00 Nasal Cannula 3.0 08/20/18 17:21 100 General Appearance: alert, mild distress, thin EENT: PERRL/EOMI, normal ENT inspection Neck: non-tender, normal alignment, supple, normal inspection Cardiovascular: normal peripheral pulses, normal rate, regular rhythm, no gallop/murmur, no JVD Respiratory/Chest: chest wall non-tender, no accessory muscle use, crackles/ rales, rhonchi - bilaterally, expiratory wheezing Abdomen: normal bowel sounds, non tender, soft, no organomegaly, no mass Extremities: normal range of motion, non-tender Neurologic: stock chaser II-XII grossly normal, no motor/sensory deficits Skin: normal pigmentation, warm/dry Laboratory Tests Test 08/22/18 06:25 08/22/18 06:45 White Blood Count 12.2 K/UL (4.8-10.8) H Red Blood Count 3.64 M/UL (4.70-6.10) L Hemoglobin 11.6 G/DL (14.2-18.0) L Hematocrit 34.5 % (42.0-52.0) L Mean Corpuscular Volume 95 FL (80-99) Mean Corpuscular Hemoglobin 31.8 PG (27.0-31.0) H Mean Corpuscular Hemoglobin Concent 33.5 G/DL (32.0-36.0) Red Cell Distribution Width 12.1 % (11.6-14.8) Platelet Count 306 K/UL (150-450) Mean Platelet Volume 5.9 FL (6.5-10.1) L Neutrophils (%) (Auto) 76.3 % (45.0-75.0) H Lymphocytes (%) (Auto) 16.1 % (20.0-45.0) L Monocytes (%) (Auto) 7.0 % (1.0-10.0) Eosinophils (%) (Auto) 0.2 % (0.0-3.0) Basophils (%) (Auto) 0.5 % (0.0-2.0) Sodium Level 148 MMOL/L (136-145) H Potassium Level 3.1 MMOL/L (3.5-5.1) L Chloride Level 108 MMOL/L (98-107) H Carbon Dioxide Level 31 MMOL/L (21-32) Anion Gap 9 mmol/L (5-15) Blood Urea Nitrogen 70 mg/dL (7-18) H Creatinine 1.9 MG/DL (0.55-1.30) H Estimat Glomerular Filtration Rate mL/min (>60) Glucose Level 136 MG/DL (74-106) H Hemoglobin A1c 5.7 % (4.3-6.0) Calcium Level 9.3 MG/DL (8.5-10.1) Phosphorus Level 2.3 MG/DL (2.5-4.9) L Magnesium Level 1.9 MG/DL (1.8-2.4) Total Bilirubin 0.4 MG/DL (0.2-1.0) Aspartate Amino Transf (AST/SGOT) 34 U/L (15-37) Alanine Aminotransferase (ALT/SGPT) 48 U/L (12-78) Alkaline Phosphatase 67 U/L (46-116) Troponin I 0.064 ng/mL (0.000-0.056) Pro-B-Type Natriuretic Peptide 5133 pg/mL (0-125) H Total Protein 8.0 G/DL (6.4-8.2) Albumin 2.2 G/DL (3.4-5.0) L Globulin 5.8 g/dL Albumin/Globulin Ratio 0.4 (1.0-2.7) L Triglycerides Level 62 MG/DL (30-150) Cholesterol Level 92 MG/DL (< 200) LDL Cholesterol 62 mg/dL (<100) HDL Cholesterol 33 MG/DL (40-60) L Cholesterol/HDL Ratio 2.8 (3.3-4.4) L Uric Acid 9.4 MG/DL (2.6-7.2) H Iron Level 28 ug/dL (50-175) L Total Iron Binding Capacity 132 ug/dL (250-450) L Percent Iron Saturation 21 % (15-50) Unsaturated Iron Binding 104 ug/dL (112-346) L Ferritin > 2000 NG/ML (8-388) H Vitamin B12 Level 948 PG/ML (193-986) Folate 6.7 NG/ML (8.6-58.9) L Thyroid Stimulating Hormone (TSH) 0.739 uiU/mL (0.358-3.740) Microbiology Date/Time Source Procedure Growth Status 08/20/18 17:30 Blood Blood Culture - Preliminary NO GROWTH AFTER 24 HOURS Resulted 08/20/18 17:15 Blood Blood Culture - Preliminary NO GROWTH AFTER 24 HOURS Resulted 08/20/18 17:10 Urine,Clean Catch Urine Culture - Final Escherichia Coli Complete 08/20/18 21:16 Rectum Received Intake and Output 08/21/18 08/22/18 19:00 07:00 Intake Total 360 ml Output Total 600 ml Balance -240 ml Intake Oral 360 ml Output Urine Total 600 ml # Voids 2 Assessment/Plan Problem List: (1) Hypercholesteremia (2) Hypoxia (3) Shortness of breath (4) CHF (congestive heart failure) Assessment & Plan: [id number]. Await cardiology consult (5) UTI (urinary tract infection) Assessment & Plan: E. Coli. Continue ceftriaxone (6) Atrial fibrillation (7) Hypertension Assessment & Plan: Continue norvasc (8) Alzheimer's dementia (9) Cerebral vascular disease Status: not improved Noe Sanchez MD Aug 22, 2018 12:51
--- NOTE | 2018-08-22 14:35 | Consultation ---
Consult Note Consult Note asked to eval forrenal failure- This is an 83-year-old male on the nursing care facility who offers no meaningful history who was sent from the facility for shortness of breath and hypoxia. According to paramedics the patient and O2 saturation in the 80s and was started on bag valve mask. Unknown onset. No Known Allergies (Unverified , 06/17/18) Hx Hypertension: Yes Hx Neurological Problems: Yes - dementia Hx Cerebrovascular Accident: Yes - TIA interviewed- examined data reviewed Assessment/Plan Renal failure /Dehydration Sepsis / UTI Hypertension. Atrial fibrillation. Cerebrovascular disease. Alzheimer's dementia. Hypercholesterolemia. Hydrate- monitor renal parameters and lytes gastric support per orders Kash Landry MD Aug 22, 2018 14:35
[2018-08-22 16:00] VITALS: BP 141/66
--- NOTE | 2018-08-22 16:06 | Consultation ---
History of Present Illness General Date patient seen: Aug 22, 2018 Time patient seen: 15:57 Chief Complaint: Dyspnea/Respdistress Present Illness HPI The patient is a resident of [facility]. The patient states he became short of breath yesterday and required oxygen, he had sats 70-80%. He has a hx of HTN, AFIB, CVA, Dementia, HLD. Cardiology consulted for AFIb and elevated troponin. Patient currently in NSR with BBB and PACs, troponin mildly elevated likely from hypoxia and demand ischemia. No chest pain. CXR with no acute disease. Patient stable on three liters nasal canula. Allergies: Coded Allergies: No Known Allergies (Unverified , 06/17/18) Medication History Scheduled Amlodipine Besylate* (Amlodipine Besylate*), 2.5 MG ORAL DAILY, (Reported) Aripiprazole* (Abilify*), 2 MG ORAL DAILY, (Reported) Atorvastatin Calcium* (Atorvastatin Calcium*), 20 MG ORAL BEDTIME, (Reported) Isosorbide Mononitrate (Isosorbide Mononitrate Er), 30 MG PO DAILY, (Reported) Losartan/Hydrochlorothiazide 100-12.5 Tablet (Hyzaar 100-12.5 Tablet), 1 TAB ORAL DAILY, (Reported) Scheduled PRN Acetaminophen With Codeine (T#3) (Tylenol #3 Tab*), 1 TAB ORAL Q6H PRN for For Pain, (Reported) Discontinued Medications Amlodipine Besylate* (Amlodipine Besylate*), 2.5 MG ORAL DAILY, (Reported) Discontinued Reason: Prescription changed Amoxicillin* (Amoxil*), 500 MG ORAL EVERY 8 HOURS Discontinued Reason: Therapy completed Furosemide* (Lasix*), 40 MG ORAL DAILY, (Reported) Discontinued Reason: Therapy completed Potassium Chloride (Potassium Chloride), 20 MEQ PO DAILY, (Reported) Discontinued Reason: Therapy completed Patient History Healthcare decision maker Resuscitation status Full Code Advanced Directive on File Review of Systems Constitutional: Reports: no symptoms Eye: Reports: no symptoms ENT: Reports: no symptoms Respiratory: Reports: shortness of breath Cardiovascular: Reports: no symptoms Gastrointestinal: Reports: no symptoms Genitourinary: Reports: no symptoms Musculoskeletal: Reports: no symptoms Skin: Reports: no symptoms Psychiatric: Reports: no symptoms Neurological: Reports: no symptoms Endocrine: Reports: no symptoms Hematologic/Lymphatic: Reports: no symptoms Physical Exam General Appearance: confused, mild distress Lines, tubes and drains: peripheral HEENT: normocephalic, atraumatic, anicteric, mucous membranes moist, PERRL Neck: non-tender, normal alignment, supple, normal inspection Respiratory/Chest: chest wall non-tender, lungs clear, normal breath sounds, no respiratory distress, no accessory muscle use Cardiovascular/Chest: normal peripheral pulses, normal rate, regular rhythm Abdomen: normal bowel sounds, non tender Extremities: normal range of motion, non-tender, normal inspection 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, no motor/sensory deficits Last 24 Hour Vital Signs Date Time Temp Pulse Resp B/P (MAP) Pulse Ox O2 Delivery O2 Flow Rate FiO2 08/22/18 12:00 99.0 79 18 133/63 (86) 98 08/22/18 12:00 72 08/22/18 10:02 76 164/88 08/22/18 09:00 Nasal Cannula 3.0 08/22/18 08:00 85 08/22/18 08:00 97.5 76 20 164/88 (113) 99 08/22/18 04:00 97.4 68 19 137/65 (89) 100 08/22/18 03:32 75 08/22/18 00:00 98.0 80 18 131/62 (85) 96 08/21/18 23:43 90 08/21/18 21:00 Nasal Cannula 3.0 08/21/18 20:14 102 08/21/18 20:00 98.0 89 19 120/70 (87) 98 08/21/18 16:00 85 08/21/18 16:00 98.7 85 19 141/67 (91) 100 Intake and Output 08/21/18 08/22/18 19:00 07:00 Intake Total 360 ml Output Total 600 ml Balance -240 ml Intake Oral 360 ml Output Urine Total 600 ml # Voids 2 Laboratory Tests Test 08/22/18 06:25 08/22/18 06:45 08/22/18 15:05 White Blood Count 12.2 K/UL (4.8-10.8) H Red Blood Count 3.64 M/UL (4.70-6.10) L Hemoglobin 11.6 G/DL (14.2-18.0) L Hematocrit 34.5 % (42.0-52.0) L Mean Corpuscular Volume 95 FL (80-99) Mean Corpuscular Hemoglobin 31.8 PG (27.0-31.0) H Mean Corpuscular Hemoglobin Concent 33.5 G/DL (32.0-36.0) Red Cell Distribution Width 12.1 % (11.6-14.8) Platelet Count 306 K/UL (150-450) Mean Platelet Volume 5.9 FL (6.5-10.1) L Neutrophils (%) (Auto) 76.3 % (45.0-75.0) H Lymphocytes (%) (Auto) 16.1 % (20.0-45.0) L Monocytes (%) (Auto) 7.0 % (1.0-10.0) Eosinophils (%) (Auto) 0.2 % (0.0-3.0) Basophils (%) (Auto) 0.5 % (0.0-2.0) Sodium Level 148 MMOL/L (136-145) H Potassium Level 3.1 MMOL/L (3.5-5.1) L Chloride Level 108 MMOL/L (98-107) H Carbon Dioxide Level 31 MMOL/L (21-32) Anion Gap 9 mmol/L (5-15) Blood Urea Nitrogen 70 mg/dL (7-18) H Creatinine 1.9 MG/DL (0.55-1.30) H Estimat Glomerular Filtration Rate mL/min (>60) Glucose Level 136 MG/DL (74-106) H Hemoglobin A1c 5.7 % (4.3-6.0) Calcium Level 9.3 MG/DL (8.5-10.1) Phosphorus Level 2.3 MG/DL (2.5-4.9) L Magnesium Level 1.9 MG/DL (1.8-2.4) Total Bilirubin 0.4 MG/DL (0.2-1.0) Aspartate Amino Transf (AST/SGOT) 34 U/L (15-37) Alanine Aminotransferase (ALT/SGPT) 48 U/L (12-78) Alkaline Phosphatase 67 U/L (46-116) Troponin I 0.064 ng/mL (0.000-0.056) Pro-B-Type Natriuretic Peptide 5133 pg/mL (0-125) H Total Protein 8.0 G/DL (6.4-8.2) Albumin 2.2 G/DL (3.4-5.0) L Globulin 5.8 g/dL Albumin/Globulin Ratio 0.4 (1.0-2.7) L Triglycerides Level 62 MG/DL (30-150) Cholesterol Level 92 MG/DL (< 200) LDL Cholesterol 62 mg/dL (<100) HDL Cholesterol 33 MG/DL (40-60) L Cholesterol/HDL Ratio 2.8 (3.3-4.4) L Uric Acid 9.4 MG/DL (2.6-7.2) H Iron Level 28 ug/dL (50-175) L Total Iron Binding Capacity 132 ug/dL (250-450) L Percent Iron Saturation 21 % (15-50) Unsaturated Iron Binding 104 ug/dL (112-346) L Ferritin > 2000 NG/ML (8-388) H Vitamin B12 Level 948 PG/ML (193-986) Folate 6.7 NG/ML (8.6-58.9) L Thyroid Stimulating Hormone (TSH) 0.739 uiU/mL (0.358-3.740) C-Reactive Protein, Quantitative 12.0 mg/dL (0.00-0.90) H Height (Feet): 5 Height (Inches): 5.00 Weight (Pounds): 100 Medications Current Medications Medications (Trade) Dose Ordered Sig/Marleni Route PRN Reason Start Time Stop Time Status Last Admin Dose Admin Acetaminophen (Tylenol) 650 mg Q6H PRN ORAL Mild Pain/Temp > 100.5 08/21/18 02:00 09/20/18 01:59 08/22/18 10:12 Amlodipine Besylate (Norvasc) 2.5 mg DAILY ORAL 08/22/18 09:00 09/21/18 08:59 08/22/18 10:02 Aripiprazole (Abilify) 2 mg DAILY ORAL 08/21/18 09:00 09/20/18 08:59 08/22/18 10:02 Ceftriaxone Sodium 1 gm/ Dextrose 55 ml @ 110 mls/hr Q24H IVPB 08/21/18 19:00 08/28/18 18:59 08/21/18 18:00 Dextrose/ Electrolytes 1,000 ml @ 75 mls/hr [id number] IV 08/23/18 03:00 09/20/18 02:59 Folic Acid (Folate) 2 mg DAILY ORAL 08/22/18 14:45 09/21/18 14:44 Heparin Sodium (Porcine) (Heparin 5000 units/ml) 5,000 units EVERY 12 HOURS SUBQ 08/21/18 09:00 09/20/18 08:59 08/22/18 10:05 Pantoprazole (Protonix) 40 mg DAILY ORAL 08/22/18 14:45 09/21/18 14:44 Serg Ortiz MD Aug 22, 2018 16:06
[2018-08-22] MEDS: cefTRIAXone 1 GM in D5W 55 ML IVPB SCH (19:55)
[2018-08-22 20:00] VITALS: BP 102/54
[2018-08-22] MEDS: Metoprolol 25mg tab ORAL SCH (20:19)
--- NOTE | 2018-08-22 23:50 | General Progress Note ---
Assessment/Plan Problem List: (1) Alzheimer's dementia ICD Codes: G30.9 - Alzheimer's disease, unspecified; F02.80 - Dementia in other diseases classified elsewhere without behavioral disturbance SNOMED: 57830796 (2) Cerebral vascular disease ICD Codes: I67.9 - Cerebrovascular disease, unspecified SNOMED: 08482074 Status: stable Assessment/Plan abilify 2mg qam the pt lacks capacity to make decisions. Subjective Neurologic/Psychiatric: Reports: anxiety, depressed Allergies: Coded Allergies: No Known Allergies (Unverified , 06/17/18) Objective Last 24 Hour Vital Signs Date Time Temp Pulse Resp B/P (MAP) Pulse Ox O2 Delivery O2 Flow Rate FiO2 08/22/18 23:01 Nasal Cannula 3.0 08/22/18 20:19 66 102/54 08/22/18 20:00 79 08/22/18 20:00 97.7 66 20 102/54 (70) 98 08/22/18 16:00 98.0 89 20 141/66 (91) 98 08/22/18 16:00 96 08/22/18 12:00 99.0 79 18 133/63 (86) 98 08/22/18 12:00 72 08/22/18 10:02 76 164/88 08/22/18 09:00 Nasal Cannula 3.0 08/22/18 08:00 85 08/22/18 08:00 97.5 76 20 164/88 (113) 99 08/22/18 04:00 97.4 68 19 137/65 (89) 100 08/22/18 03:32 75 08/22/18 00:00 98.0 80 18 131/62 (85) 96 Intake and Output 08/21/18 08/22/18 19:00 07:00 Intake Total 360 ml Output Total 600 ml Balance -240 ml Intake Oral 360 ml Output Urine Total 600 ml # Voids 2 Laboratory Tests 08/22/18 06:25: White Blood Count 12.2H, Red Blood Count 3.64L, Hemoglobin 11.6L, Hematocrit 34.5L, Mean Corpuscular Volume 95, Mean Corpuscular Hemoglobin 31.8H, Mean Corpuscular Hemoglobin Concent 33.5, Red Cell Distribution Width 12.1, Platelet Count 306, Mean Platelet Volume 5.9L, Neutrophils (%) (Auto) 76.3H, Lymphocytes (%) (Auto) 16.1L, Monocytes (%) (Auto) 7.0, Eosinophils (%) (Auto) 0.2, Basophils (%) (Auto) 0.5, Sodium Level 148H, Potassium Level 3.1L, Chloride Level 108H, Carbon Dioxide Level 31, Anion Gap 9, Blood Urea Nitrogen 70H, Creatinine 1.9H, Estimat Glomerular Filtration Rate , Glucose Level 136H, Hemoglobin A1c 5.7, Calcium Level 9.3, Phosphorus Level 2.3L, Magnesium Level 1.9, Total Bilirubin 0.4, Aspartate Amino Transf (AST/SGOT) 34, Alanine Aminotransferase (ALT/SGPT) 48, Alkaline Phosphatase 67, Troponin I 0.064H, Pro- B-Type Natriuretic Peptide 5133H, Total Protein 8.0, Albumin 2.2L, Globulin 5.8 , Albumin/Globulin Ratio 0.4L, Triglycerides Level 62, Cholesterol Level 92, LDL Cholesterol 62, HDL Cholesterol 33L, Cholesterol/HDL Ratio 2.8L 08/22/18 06:45: Uric Acid 9.4H, Iron Level 28L, Total Iron Binding Capacity 132L, Percent Iron Saturation 21, Unsaturated Iron Binding 104L, Ferritin > 2000H, Vitamin B12 Level 948, Folate 6.7L, Thyroid Stimulating Hormone (TSH) 0.739 08/22/18 15:05: C-Reactive Protein, Quantitative 12.0H Height (Feet): 5 Height (Inches): 5.00 Weight (Pounds): 100 General Appearance: no apparent distress, alert, agitated Raulito Avilez MD Aug 22, 2018 23:50
[2018-08-23] VITALS: BP 120/57
[2018-08-23 04:00] VITALS: BP 149/79
[2018-08-23] MEDS: D5W w/KCl 20mEq 1,000 ML IV SCH (06:44)
[2018-08-23 07:55] LABS: BASOPHILS % (AUTO) 0.3 % (0.0-2.0); EOSINOPHILS % (AUTO) 0.5 % (0.0-3.0); HEMOGLOBIN 11.6 G/DL (14.2-18.0); LYMPHOCYTES % (AUTO) 14.3 % (20.0-45.0); MEAN CORPUSCULAR VOLUME 94 FL (80-99); MONOCYTES % (AUTO) 5.3 % (1.0-10.0); NEUTROPHILS % (AUTO) 79.7 % (45.0-75.0); PLATELET COUNT 341 K/UL (150-450); RED BLOOD COUNT 3.62 M/UL (4.70-6.10); RED CELL DISTRIBUTION WIDTH 12.2 % (11.6-14.8); WHITE BLOOD COUNT 14.5 K/UL (4.8-10.8)
[2018-08-23 08:00] VITALS: BP 130/72
[2018-08-23 08:17] LABS: ALANINE AMINOTRANSFERASE 56 U/L (12-78); ALBUMIN 2.1 G/DL (3.4-5.0); ALBUMIN/GLOBULIN RATIO 0.4 (1.0-2.7); ALKALINE PHOSPHATASE 68 U/L (46-116); ANION GAP 6 mmol/L (5-15); ASPARTATE AMINO TRANSFERASE 44 U/L (15-37); BILIRUBIN,TOTAL 0.4 MG/DL (0.2-1.0); BLOOD UREA NITROGEN 46 mg/dL (7-18); CARBON DIOXIDE 31 MMOL/L (21-32); CHLORIDE 103 MMOL/L (98-107); CREATININE 1.6 MG/DL (0.55-1.30); PHOSPHORUS 2.4 MG/DL (2.5-4.9); POTASSIUM 3.6 MMOL/L (3.5-5.1); SODIUM 140 MMOL/L (136-145)
[2018-08-23] MEDS: ARIPiprazole 2mg tab ORAL SCH (08:44)
[2018-08-23] MEDS: Metoprolol 25mg tab ORAL SCH ×2 (08:45→21:18)
[2018-08-23] MEDS: Heparin 5000 units/ml inj SUBQ SCH ×2 (08:47→21:19)
--- NOTE | 2018-08-23 09:22 | Cardiology Progress Note ---
Assessment/Plan Status: stable Assessment/Plan Asssessment/plan Renal failure /Dehydration Sepsis / UTI Hypertension. Atrial fibrillation. Cerebrovascular disease. Alzheimer's dementia. Hypercholesterolemia Echocardiogram to evaluate LV function Trend troponin NO indication for cardiac cath or ischemia evaluation Rate control AFIB Aspirin Anticoagulation Atorvastatin Namenda/aricept for dementia Fluids for MARQUIS Mild diuresis for elevated BNP Subjective Cardiovascular: Reports: no symptoms Respiratory: Reports: no symptoms Gastrointestinal/Abdominal: Reports: no symptoms Genitourinary: Reports: no symptoms Subjective Patient with no acute events, remains on nasal cannula, no complaints, no distress Objective Last 24 Hour Vital Signs Date Time Temp Pulse Resp B/P (MAP) Pulse Ox O2 Delivery O2 Flow Rate FiO2 08/23/18 08:45 91 130/72 08/23/18 08:44 91 130/72 08/23/18 08:00 97.8 88 20 130/72 (91) 100 08/23/18 04:00 97.7 80 20 149/79 (102) 100 08/23/18 04:00 84 08/23/18 00:00 97.7 65 20 120/57 (78) 100 08/23/18 00:00 68 08/22/18 23:01 Nasal Cannula 3.0 08/22/18 20:19 66 102/54 08/22/18 20:00 79 08/22/18 20:00 97.7 66 20 102/54 (70) 98 08/22/18 16:00 98.0 89 20 141/66 (91) 98 08/22/18 16:00 96 08/22/18 12:00 99.0 79 18 133/63 (86) 98 08/22/18 12:00 72 08/22/18 10:02 76 164/88 General Appearance: no apparent distress, alert EENT: PERRL/EOMI, normal ENT inspection Neck: non-tender, normal alignment, supple, normal inspection, no JVD Rhythm: NSR Cardiovascular: normal peripheral pulses, normal rate, regular rhythm Respiratory/Chest: chest wall non-tender, lungs clear Abdomen: normal bowel sounds, non tender, soft, no organomegaly Extremities: normal range of motion, non-tender, normal inspection 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0 PG (27.0-31.0) H Mean Corpuscular Hemoglobin Concent 34.1 G/DL (32.0-36.0) Red Cell Distribution Width 12.2 % (11.6-14.8) Platelet Count 341 K/UL (150-450) Mean Platelet Volume 5.9 FL (6.5-10.1) L Neutrophils (%) (Auto) 79.7 % (45.0-75.0) H Lymphocytes (%) (Auto) 14.3 % (20.0-45.0) L Monocytes (%) (Auto) 5.3 % (1.0-10.0) Eosinophils (%) (Auto) 0.5 % (0.0-3.0) Basophils (%) (Auto) 0.3 % (0.0-2.0) Sodium Level 140 MMOL/L (136-145) Potassium Level 3.6 MMOL/L (3.5-5.1) Chloride Level 103 MMOL/L (98-107) Carbon Dioxide Level 31 MMOL/L (21-32) Anion Gap 6 mmol/L (5-15) Blood Urea Nitrogen 46 mg/dL (7-18) H Creatinine 1.6 MG/DL (0.55-1.30) H Estimat Glomerular Filtration Rate mL/min (>60) Glucose Level 144 MG/DL (74-106) H Uric Acid 7.0 MG/DL (2.6-7.2) Calcium Level 9.0 MG/DL (8.5-10.1) Phosphorus Level 2.4 MG/DL (2.5-4.9) L Magnesium Level 1.5 MG/DL (1.8-2.4) L Total Bilirubin 0.4 MG/DL (0.2-1.0) Aspartate Amino Transf (AST/SGOT) 44 U/L (15-37) H Alanine Aminotransferase (ALT/SGPT) 56 U/L (12-78) Alkaline Phosphatase 68 U/L (46-116) Troponin I 0.033 ng/mL (0.000-0.056) Pro-B-Type Natriuretic Peptide 25484 pg/mL (0-125) H Total Protein 7.9 G/DL (6.4-8.2) Albumin 2.1 G/DL (3.4-5.0) L Globulin 5.8 g/dL Albumin/Globulin Ratio 0.4 (1.0-2.7) L Microbiology Date/Time Source Procedure Growth Status 08/20/18 17:30 Blood Blood Culture - Preliminary NO GROWTH AFTER 48 HOURS Resulted 08/20/18 17:15 Blood Blood Culture - Preliminary NO GROWTH AFTER 48 HOURS Resulted 08/20/18 17:10 Urine,Clean Catch Urine Culture - Final Escherichia Coli Complete 08/21/18 21:10 Rectum VRE Culture - Final NO VANCOMYCIN RESISTANT ENTEROCOCCUS ... Complete 08/20/18 21:16 Rectum - Final NO CARBAPENEM-RESISTANT ENTEROBACTERI... Complete Serg Ortiz MD Aug 23, 2018 09:22
--- NOTE | 2018-08-23 10:25 | Consultation ---
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 According to paramedics the patient and O2 saturation in the 80s and was started on bag valve mask. His CXR was clear. He had a cloudy urine and leukocytosis. He was started on supplemental oxygen and admitted to telemetry. Allergies: Coded Allergies: No Known Allergies (Unverified , 06/17/18) Medication History Scheduled Amlodipine Besylate* (Amlodipine Besylate*), 2.5 MG ORAL DAILY, (Reported) Aripiprazole* (Abilify*), 2 MG ORAL DAILY, (Reported) Atorvastatin Calcium* (Atorvastatin Calcium*), 20 MG ORAL BEDTIME, (Reported) Isosorbide Mononitrate (Isosorbide Mononitrate Er), 30 MG PO DAILY, (Reported) Losartan/Hydrochlorothiazide 100-12.5 Tablet (Hyzaar 100-12.5 Tablet), 1 TAB ORAL DAILY, (Reported) Scheduled PRN Acetaminophen With Codeine (T#3) (Tylenol #3 Tab*), 1 TAB ORAL Q6H PRN for For Pain, (Reported) Discontinued Medications Amlodipine Besylate* (Amlodipine Besylate*), 2.5 MG ORAL DAILY, (Reported) Discontinued Reason: Prescription changed Amoxicillin* (Amoxil*), 500 MG ORAL EVERY 8 HOURS Discontinued Reason: Therapy completed Furosemide* (Lasix*), 40 MG ORAL DAILY, (Reported) Discontinued Reason: Therapy completed Potassium Chloride (Potassium Chloride), 20 MEQ PO DAILY, (Reported) Discontinued Reason: Therapy completed Patient History Healthcare decision maker Resuscitation status Full Code Advanced Directive on File Past Medical/Surgical History Past Medical/Surgical History: (1) Alzheimer's dementia (2) Cerebral vascular disease Review of Systems All Other Systems: negative except mentioned in HPI Physical Exam General Appearance: cachetic Lines, tubes and drains: peripheral HEENT: normocephalic, atraumatic Neck: non-tender, normal alignment Respiratory/Chest: chest wall non-tender, lungs clear Cardiovascular/Chest: normal peripheral pulses Abdomen: normal bowel sounds Last 24 Hour Vital Signs Date Time Temp Pulse Resp B/P (MAP) Pulse Ox O2 Delivery O2 Flow Rate FiO2 11/19/18 09:00 Nasal Cannula 3.0 08/23/18 08:45 91 130/72 08/23/18 08:44 91 130/72 08/23/18 08:00 97.8 88 20 130/72 (91) 100 08/23/18 08:00 87 08/23/18 04:00 97.7 80 20 149/79 (102) 100 08/23/18 04:00 84 08/23/18 00:00 97.7 65 20 120/57 (78) 100 08/23/18 00:00 68 08/22/18 23:01 Nasal Cannula 3.0 08/22/18 20:19 66 102/54 08/22/18 20:00 79 08/22/18 20:00 97.7 66 20 102/54 (70) 98 08/22/18 16:00 98.0 89 20 141/66 (91) 98 08/22/18 16:00 96 08/22/18 12:00 99.0 79 18 133/63 (86) 98 08/22/18 12:00 72 Intake and Output 08/22/18 08/23/18 19:00 07:00 Intake Total 360 ml 1100 ml Output Total 200 ml 900 ml Balance 160 ml 200 ml Intake Oral 360 ml 200 ml IV Total 900 ml Output Urine Total 200 ml 900 ml # Voids 2 # Bowel Movements 1 Laboratory Tests Test 08/22/18 15:05 08/23/18 06:20 C-Reactive Protein, Quantitative 12.0 mg/dL (0.00-0.90) H White Blood Count 14.5 K/UL (4.8-10.8) H Red Blood Count 3.62 M/UL (4.70-6.10) L Hemoglobin 11.6 G/DL (14.2-18.0) L Hematocrit 34.0 % (42.0-52.0) L Mean Corpuscular Volume 94 FL (80-99) Mean Corpuscular Hemoglobin 32.0 PG (27.0-31.0) H Mean Corpuscular Hemoglobin Concent 34.1 G/DL (32.0-36.0) Red Cell Distribution Width 12.2 % (11.6-14.8) Platelet Count 341 K/UL (150-450) Mean Platelet Volume 5.9 FL (6.5-10.1) L Neutrophils (%) (Auto) 79.7 % (45.0-75.0) H Lymphocytes (%) (Auto) 14.3 % (20.0-45.0) L Monocytes (%) (Auto) 5.3 % (1.0-10.0) Eosinophils (%) (Auto) 0.5 % (0.0-3.0) Basophils (%) (Auto) 0.3 % (0.0-2.0) Sodium Level 140 MMOL/L (136-145) Potassium Level 3.6 MMOL/L (3.5-5.1) Chloride Level 103 MMOL/L (98-107) Carbon Dioxide Level 31 MMOL/L (21-32) Anion Gap 6 mmol/L (5-15) Blood Urea Nitrogen 46 mg/dL (7-18) H Creatinine 1.6 MG/DL (0.55-1.30) H Estimat Glomerular Filtration Rate mL/min (>60) Glucose Level 144 MG/DL (74-106) H Uric Acid 7.0 MG/DL (2.6-7.2) Calcium Level 9.0 MG/DL (8.5-10.1) Phosphorus Level 2.4 MG/DL (2.5-4.9) L Magnesium Level 1.5 MG/DL (1.8-2.4) L Total Bilirubin 0.4 MG/DL (0.2-1.0) Aspartate Amino Transf (AST/SGOT) 44 U/L (15-37) H Alanine Aminotransferase (ALT/SGPT) 56 U/L (12-78) Alkaline Phosphatase 68 U/L (46-116) Troponin I 0.033 ng/mL (0.000-0.056) Pro-B-Type Natriuretic Peptide 20689 pg/mL (0-125) H Total Protein 7.9 G/DL (6.4-8.2) Albumin 2.1 G/DL (3.4-5.0) L Globulin 5.8 g/dL Albumin/Globulin Ratio 0.4 (1.0-2.7) L Height (Feet): 5 Height (Inches): 5.00 Weight (Pounds): 100 Medications Current Medications Medications (Trade) Dose Ordered Sig/Marleni Route PRN Reason Start Time Stop Time Status Last Admin Dose Admin Acetaminophen (Tylenol) 650 mg Q6H PRN ORAL Mild Pain/Temp > 100.5 08/21/18 02:00 09/20/18 01:59 08/22/18 16:26 Amlodipine Besylate (Norvasc) 2.5 mg DAILY ORAL 08/22/18 09:00 09/21/18 08:59 08/23/18 08:44 Aripiprazole (Abilify) 2 mg DAILY ORAL 08/21/18 09:00 09/20/18 08:59 08/23/18 08:44 Ceftriaxone Sodium 1 gm/ Dextrose 55 ml @ 110 mls/hr Q24H IVPB 08/21/18 19:00 08/28/18 18:59 08/22/18 19:55 Dextrose/ Electrolytes 1,000 ml @ 75 mls/hr [id number] IV 08/23/18 03:00 09/20/18 02:59 08/23/18 06:44 Folic Acid (Folate) 2 mg DAILY ORAL 08/22/18 14:45 09/21/18 14:44 08/23/18 08:44 Furosemide (Lasix) 20 mg DAILY ORAL 08/23/18 09:00 09/22/18 08:59 08/23/18 08:44 Heparin Sodium (Porcine) (Heparin 5000 units/ml) 5,000 units EVERY 12 HOURS SUBQ 08/21/18 09:00 09/20/18 08:59 08/23/18 08:47 Magnesium Sulfate 100 ml @ 100 mls/hr Q1H IVPB 08/23/18 10:00 08/23/18 11:59 08/23/18 09:52 Metoprolol Tartrate (Lopressor) 25 mg Q12HR ORAL 08/22/18 21:00 09/21/18 20:59 08/23/18 08:45 Pantoprazole (Protonix) 40 mg DAILY ORAL 08/22/18 14:45 09/21/18 14:44 08/23/18 08:44 Potassium Phosphate 15 mm/ Sodium Chloride 280 ml @ 46.667 mls/ hr ONCE ONCE IV 08/23/18 12:00 08/23/18 17:59 Assessment/Plan Problem List: (1) Acute respiratory failure ICD Codes: J96.00 - Acute respiratory failure, unspecified whether with hypoxia or hypercapnia SNOMED: 49812198 (2) Sepsis ICD Codes: A41.9 - Sepsis, unspecified organism SNOMED: 64280014 (3) Alzheimer's dementia ICD Codes: G30.9 - Alzheimer's disease, unspecified; F02.80 - Dementia in other diseases classified elsewhere without behavioral disturbance SNOMED: 42253614 (4) Hypertension ICD Codes: I10 - Essential (primary) hypertension SNOMED: 02783612 (5) Renal failure ICD Codes: N19 - Unspecified kidney failure SNOMED: 87617854 Assessment/Plan respiratory treatment Vq scan to rule out PE, can't do CT angio b/o azotemia dc lasix titrate fio2 to saturation of 92% swallow evaluation. Jose Rooney MD Aug 23, 2018 10:25
--- NOTE | 2018-08-23 11:16 | Consultation ---
Consult Note Consult Note # [id number] Satinder Palencia MD Aug 23, 2018 11:16
--- NOTE | 2018-08-23 11:24 | Nephrology Progress Note ---
Assessment/Plan Problem List: (1) Renal failure Assessment: acute (2) Dehydration (3) Sepsis (4) UTI (urinary tract infection) (5) Atrial fibrillation Assessment Renal failure /Dehydration improving Sepsis / UTI Hypertension. Atrial fibrillation. Cerebrovascular disease. Alzheimer's dementia. Hypercholesterolemia. Plan Hydrate- monitor renal parameters and lytes gastric support per orders Subjective ROS Limited/Unobtainable: No Constitutional: Reports: malaise Objective Objective Last 24 Hour Vital Signs Date Time Temp Pulse Resp B/P (MAP) Pulse Ox O2 Delivery O2 Flow Rate FiO2 08/23/18 09:00 Nasal Cannula 3.0 08/23/18 08:45 91 130/72 08/23/18 08:44 91 130/72 08/23/18 08:00 97.8 88 20 130/72 (91) 100 08/23/18 08:00 87 08/23/18 04:00 97.7 80 20 149/79 (102) 100 08/23/18 04:00 84 08/23/18 00:00 97.7 65 20 120/57 (78) 100 08/23/18 00:00 68 08/22/18 23:01 Nasal Cannula 3.0 08/22/18 20:19 66 102/54 08/22/18 20:00 79 08/22/18 20:00 97.7 66 20 102/54 (70) 98 08/22/18 16:00 98.0 89 20 141/66 (91) 98 08/22/18 16:00 96 08/22/18 12:00 99.0 79 18 133/63 (86) 98 08/22/18 12:00 72 Intake and Output 08/22/18 08/23/18 19:00 07:00 Intake Total 360 ml 1100 ml Output Total 200 ml 900 ml Balance 160 ml 200 ml Intake Oral 360 ml 200 ml IV Total 900 ml Output Urine Total 200 ml 900 ml # Voids 2 # Bowel Movements 1 Laboratory Tests 08/22/18 15:05: C-Reactive Protein, Quantitative 12.0H 08/23/18 06:20: White Blood Count 14.5H, Red Blood Count 3.62L, Hemoglobin 11.6L, Hematocrit 34.0L, Mean Corpuscular Volume 94, Mean Corpuscular Hemoglobin 32.0H, Mean Corpuscular Hemoglobin Concent 34.1, Red Cell Distribution Width 12.2, Platelet Count 341, Mean Platelet Volume 5.9L, Neutrophils (%) (Auto) 79.7H, Lymphocytes (%) (Auto) 14.3L, Monocytes (%) (Auto) 5.3, Eosinophils (%) (Auto) 0.5, Basophils (%) (Auto) 0.3, Sodium Level 140, Potassium Level 3.6, Chloride Level 103, Carbon Dioxide Level 31, Anion Gap 6, Blood Urea Nitrogen 46H, Creatinine 1.6H, Estimat Glomerular Filtration Rate , Glucose Level 144H, Uric Acid 7.0, Calcium Level 9.0, Phosphorus Level 2.4L, Magnesium Level 1.5L, Total Bilirubin 0.4, Aspartate Amino Transf (AST/SGOT) 44H, Alanine Aminotransferase (ALT/SGPT) 56, Alkaline Phosphatase 68, Troponin I 0.033, Pro-B-Type Natriuretic Peptide 09157O, Total Protein 7.9, Albumin 2.1L, Globulin 5.8, Albumin/Globulin Ratio 0.4L Height (Feet): 5 Height (Inches): 5.00 Weight (Pounds): 100 General Appearance: no apparent distress, lethargic Cardiovascular: tachycardia Respiratory/Chest: decreased breath sounds Abdomen: distended Kash Landry MD Aug 23, 2018 11:24
[2018-08-23 12:00] VITALS: BP 146/80
[2018-08-23] MEDS ORDERED: Potassium Phosphate 15 MM in NS 275 ML IV ONE (12:00)
--- NOTE | 2018-08-23 12:15 | General Progress Note ---
Assessment/Plan Problem List: (1) Alzheimer's dementia ICD Codes: G30.9 - Alzheimer's disease, unspecified; F02.80 - Dementia in other diseases classified elsewhere without behavioral disturbance SNOMED: 59160365 (2) Cerebral vascular disease ICD Codes: I67.9 - Cerebrovascular disease, unspecified SNOMED: 81813465 Status: stable Assessment/Plan abilify 2mg qam the pt lacks capacity to make decisions. Subjective Date patient seen: Aug 23, 2018 Neurologic/Psychiatric: Reports: anxiety Allergies: Coded Allergies: No Known Allergies (Unverified , 06/17/18) Objective Last 24 Hour Vital Signs Date Time Temp Pulse Resp B/P (MAP) Pulse Ox O2 Delivery O2 Flow Rate FiO2 08/23/18 09:00 Nasal Cannula 3.0 08/23/18 08:45 91 130/72 08/23/18 08:44 91 130/72 08/23/18 08:00 97.8 88 20 130/72 (91) 100 08/23/18 08:00 87 08/23/18 04:00 97.7 80 20 149/79 (102) 100 08/23/18 04:00 84 08/23/18 00:00 97.7 65 20 120/57 (78) 100 08/23/18 00:00 68 08/22/18 23:01 Nasal Cannula 3.0 08/22/18 20:19 66 102/54 08/22/18 20:00 79 08/22/18 20:00 97.7 66 20 102/54 (70) 98 08/22/18 16:00 98.0 89 20 141/66 (91) 98 08/22/18 16:00 96 Intake and Output 08/22/18 08/23/18 19:00 07:00 Intake Total 360 ml 1100 ml Output Total 200 ml 900 ml Balance 160 ml 200 ml Intake Oral 360 ml 200 ml IV Total 900 ml Output Urine Total 200 ml 900 ml # Voids 2 # Bowel Movements 1 Laboratory Tests 08/22/18 15:05: C-Reactive Protein, Quantitative 12.0H 08/23/18 06:20: White Blood Count 14.5H, Red Blood Count 3.62L, Hemoglobin 11.6L, Hematocrit 34.0L, Mean Corpuscular Volume 94, Mean Corpuscular Hemoglobin 32.0H, Mean Corpuscular Hemoglobin Concent 34.1, Red Cell Distribution Width 12.2, Platelet Count 341, Mean Platelet Volume 5.9L, Neutrophils (%) (Auto) 79.7H, Lymphocytes (%) (Auto) 14.3L, Monocytes (%) (Auto) 5.3, Eosinophils (%) (Auto) 0.5, Basophils (%) (Auto) 0.3, Sodium Level 140, Potassium Level 3.6, Chloride Level 103, Carbon Dioxide Level 31, Anion Gap 6, Blood Urea Nitrogen 46H, Creatinine 1.6H, Estimat Glomerular Filtration Rate , Glucose Level 144H, Uric Acid 7.0, Calcium Level 9.0, Phosphorus Level 2.4L, Magnesium Level 1.5L, Total Bilirubin 0.4, Aspartate Amino Transf (AST/SGOT) 44H, Alanine Aminotransferase (ALT/SGPT) 56, Alkaline Phosphatase 68, Troponin I 0.033, Pro-B-Type Natriuretic Peptide 89605F, Total Protein 7.9, Albumin 2.1L, Globulin 5.8, Albumin/Globulin Ratio 0.4L Height (Feet): 5 Height (Inches): 5.00 Weight (Pounds): 100 General Appearance: no apparent distress, alert, confused Extremities: non-tender Raulito Avilez MD Aug 23, 2018 12:15
[2018-08-23 16:00] VITALS: BP 101/77
--- NOTE | 2018-08-23 17:22 | Diagnostic Imaging Report ---
Indication: Shortness of breath Technique: One view of the chest Comparison: On 2017 Findings: No acute infiltrates, effusions, or congestion. Tortuous calcified aorta. Normal heart size. Upper mediastinum unremarkable. No significant change Impression: No acute process.
--- NOTE | 2018-08-23 17:38 | Diagnostic Imaging Report ---
Indications: Dyspnea Technique: IV administration 5.5 mCi 99m technetium macroaggregated albumin. Images obtained over the lungs in multiple projections.., patient inhaled 41 mCi aerosolized 99M technetium DTPA. Images obtained over the lungs in multiple projections Comparison: Reference made to chest radiograph earlier the same day Findings: Perfusion images demonstrates slightly heterogeneous perfusion, no focal segmental or subsegmental perfusion defects. Similar tracer distribution seen on the aerosol images. No aerosol/perfusion mismatch demonstrated. Impression:
--- NOTE | 2018-08-23 17:39 | Internal Med Progress Note ---
Subjective Date of Service: Aug 23, 2018 Physician Name Noe Sanchez Attending Physician Trenton Brantley MD Current Medications Medications (Trade) Dose Ordered Sig/Marleni Route PRN Reason Start Time Stop Time Status Last Admin Dose Admin Acetaminophen (Tylenol) 650 mg Q6H PRN ORAL Mild Pain/Temp > 100.5 08/21/18 02:00 09/20/18 01:59 08/22/18 16:26 Amlodipine Besylate (Norvasc) 2.5 mg DAILY ORAL 08/22/18 09:00 09/21/18 08:59 08/23/18 08:44 Aripiprazole (Abilify) 2 mg DAILY ORAL 08/21/18 09:00 09/20/18 08:59 08/23/18 08:44 Dextrose/ Electrolytes 1,000 ml @ 75 mls/hr [id number] IV 08/23/18 03:00 09/20/18 02:59 08/23/18 06:44 Folic Acid (Folate) 2 mg DAILY ORAL 08/22/18 14:45 09/21/18 14:44 08/23/18 08:44 Heparin Sodium (Porcine) (Heparin 5000 units/ml) 5,000 units EVERY 12 HOURS SUBQ 08/21/18 09:00 09/20/18 08:59 08/23/18 08:47 Levofloxacin 150 ml @ 100 mls/hr Q48H IVPB 08/23/18 13:00 08/30/18 12:59 08/23/18 12:53 Metoprolol Tartrate (Lopressor) 25 mg Q12HR ORAL 08/22/18 21:00 09/21/18 20:59 08/23/18 08:45 Pantoprazole (Protonix) 40 mg DAILY ORAL 08/22/18 14:45 09/21/18 14:44 08/23/18 08:44 Potassium Phosphate 15 mm/ Sodium Chloride 280 ml @ 46.667 mls/ hr ONCE ONCE IV 08/23/18 12:00 08/23/18 17:59 08/23/18 16:11 Allergies: Coded Allergies: No Known Allergies (Unverified , 06/17/18) ROS Limited/Unobtainable: No Constitutional: Reports: no symptoms HEENT: Reports: no symptoms Cardiovascular: Reports: no symptoms Respiratory: Reports: shortness of breath Gastrointestinal/Abdominal: Reports: no symptoms Genitourinary: Reports: no symptoms Neurologic/Psychiatric: Reports: no symptoms Subjective 83 YO M admitted with shortness of breath. Now CHF and UTI. Cover for Int Med- Dr Brantley. Worsening leukocytosis Objective Last Vital Signs Date Time Temp Pulse Resp B/P (MAP) Pulse Ox O2 Delivery O2 Flow Rate FiO2 08/23/18 16:00 71 08/23/18 16:00 97.3 20 101/77 (85) 99 08/23/18 09:00 Nasal Cannula 3.0 08/20/18 17:21 100 Laboratory Tests Test 08/23/18 06:20 White Blood Count 14.5 K/UL (4.8-10.8) H Red Blood Count 3.62 M/UL (4.70-6.10) L Hemoglobin 11.6 G/DL (14.2-18.0) L Hematocrit 34.0 % (42.0-52.0) L Mean Corpuscular Volume 94 FL (80-99) Mean Corpuscular Hemoglobin 32.0 PG (27.0-31.0) H Mean Corpuscular Hemoglobin Concent 34.1 G/DL (32.0-36.0) Red Cell Distribution Width 12.2 % (11.6-14.8) Platelet Count 341 K/UL (150-450) Mean Platelet Volume 5.9 FL (6.5-10.1) L Neutrophils (%) (Auto) 79.7 % (45.0-75.0) H Lymphocytes (%) (Auto) 14.3 % (20.0-45.0) L Monocytes (%) (Auto) 5.3 % (1.0-10.0) Eosinophils (%) (Auto) 0.5 % (0.0-3.0) Basophils (%) (Auto) 0.3 % (0.0-2.0) Sodium Level 140 MMOL/L (136-145) Potassium Level 3.6 MMOL/L (3.5-5.1) Chloride Level 103 MMOL/L (98-107) Carbon Dioxide Level 31 MMOL/L (21-32) Anion Gap 6 mmol/L (5-15) Blood Urea Nitrogen 46 mg/dL (7-18) H Creatinine 1.6 MG/DL (0.55-1.30) H Estimat Glomerular Filtration Rate mL/min (>60) Glucose Level 144 MG/DL (74-106) H Uric Acid 7.0 MG/DL (2.6-7.2) Calcium Level 9.0 MG/DL (8.5-10.1) Phosphorus Level 2.4 MG/DL (2.5-4.9) L Magnesium Level 1.5 MG/DL (1.8-2.4) L Total Bilirubin 0.4 MG/DL (0.2-1.0) Aspartate Amino Transf (AST/SGOT) 44 U/L (15-37) H Alanine Aminotransferase (ALT/SGPT) 56 U/L (12-78) Alkaline Phosphatase 68 U/L (46-116) Troponin I 0.033 ng/mL (0.000-0.056) Pro-B-Type Natriuretic Peptide 62959 pg/mL (0-125) H Total Protein 7.9 G/DL (6.4-8.2) Albumin 2.1 G/DL (3.4-5.0) L Globulin 5.8 g/dL Albumin/Globulin Ratio 0.4 (1.0-2.7) L Microbiology Date/Time Source Procedure Growth Status 08/20/18 21:16 Nasal Nares MRSA Culture - Final NO METHICILLIN RESISTANT STAPH AUREUS... Complete 08/21/18 21:10 Rectum VRE Culture - Final NO VANCOMYCIN RESISTANT ENTEROCOCCUS ... Complete 08/20/18 21:16 Rectum - Final NO CARBAPENEM-RESISTANT ENTEROBACTERI... Complete Intake and Output 08/22/18 08/23/18 19:00 07:00 Intake Total 360 ml 1100 ml Output Total 200 ml 900 ml Balance 160 ml 200 ml Intake Oral 360 ml 200 ml IV Total 900 ml Output Urine Total 200 ml 900 ml # Voids 2 # Bowel Movements 1 Objective General Appearance: alert, mild distress, thin EENT: PERRL/EOMI, normal ENT inspection Neck: non-tender, normal alignment, supple, normal inspection Cardiovascular: normal peripheral pulses, normal rate, regular rhythm, no gallop/murmur, no JVD Respiratory/Chest: chest wall non-tender, no accessory muscle use, crackles/ rales, rhonchi - bilaterally, expiratory wheezing Abdomen: normal bowel sounds, non tender, soft, no organomegaly, no mass Extremities: normal range of motion, non-tender 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 Await cardiology consult (2) UTI (urinary tract infection) Assessment & Plan: E. Coli. D/C ceftriaxone. Start levaquin per ID (3) Atrial fibrillation (4) Hypertension Assessment & Plan: Continue norvasc (5) Alzheimer's dementia (6) Cerebral vascular disease (7) Leukocytosis Assessment & Plan: Worsening. D/C ceftriaxone; start levaquin per ID-see note. Status: not improved Noe Sanchez MD Aug 23, 2018 17:39
--- NOTE | 2018-08-23 18:24 | Consultation ---
History of Present Illness General Date patient seen: Aug 23, 2018 Chief Complaint: Dyspnea/Respdistress Reason for Consultation: multiple decubitus ulcers Present Illness HPI 83 year old male with multiple medical comorbidities who is a senior care resident presented with SOB and hypoxia. Upon admission noted to have multiple decubitus ulcers requiring care. Surgery called to evaluate for care and management. patient seen, chart reviewed, patient examined. Allergies: Coded Allergies: No Known Allergies (Unverified , 06/17/18) Medication History Scheduled Amlodipine Besylate* (Amlodipine Besylate*), 2.5 MG ORAL DAILY, (Reported) Aripiprazole* (Abilify*), 2 MG ORAL DAILY, (Reported) Atorvastatin Calcium* (Atorvastatin Calcium*), 20 MG ORAL BEDTIME, (Reported) Isosorbide Mononitrate (Isosorbide Mononitrate Er), 30 MG PO DAILY, (Reported) Losartan/Hydrochlorothiazide 100-12.5 Tablet (Hyzaar 100-12.5 Tablet), 1 TAB ORAL DAILY, (Reported) Scheduled PRN Acetaminophen With Codeine (T#3) (Tylenol #3 Tab*), 1 TAB ORAL Q6H PRN for For Pain, (Reported) Discontinued Medications Amlodipine Besylate* (Amlodipine Besylate*), 2.5 MG ORAL DAILY, (Reported) Discontinued Reason: Prescription changed Amoxicillin* (Amoxil*), 500 MG ORAL EVERY 8 HOURS Discontinued Reason: Therapy completed Furosemide* (Lasix*), 40 MG ORAL DAILY, (Reported) Discontinued Reason: Therapy completed Potassium Chloride (Potassium Chloride), 20 MEQ PO DAILY, (Reported) Discontinued Reason: Therapy completed Patient History Limited by: medical condition History Provided By: Patient, Medical Record, PMD Healthcare decision maker Resuscitation status Full Code Advanced Directive on File Past Medical/Surgical History Past Medical/Surgical History: (1) Decubital ulcer (2) Acute respiratory failure (3) Dehydration (4) Leukocytosis (5) Sepsis (6) Atrial fibrillation (7) CHF (congestive heart failure) (8) Renal failure (9) UTI (urinary tract infection) (10) Hypertension (11) CVA (cerebral vascular accident) (12) Cerebral vascular disease (13) Alzheimer's dementia Review of Systems All Other Systems: negative except mentioned in HPI Physical Exam General Appearance: no apparent distress, alert Lines, tubes and drains: peripheral HEENT: mucous membranes moist Neck: normal inspection Respiratory/Chest: decreased breath sounds, other - on supplemental o2 Cardiovascular/Chest: normal rate Abdomen: non tender, soft, no organomegaly, no mass Extremities: other Skin Exam: other Neurologic: alert, responsive Last 24 Hour Vital Signs Date Time Temp Pulse Resp B/P (MAP) Pulse Ox O2 Delivery O2 Flow Rate FiO2 08/23/18 16:00 71 08/23/18 16:00 97.3 68 20 101/77 (85) 99 08/23/18 12:00 99.1 71 20 146/80 (102) 99 08/23/18 12:00 81 08/23/18 09:00 Nasal Cannula 3.0 08/23/18 08:45 91 130/72 08/23/18 08:44 91 130/72 08/23/18 08:00 97.8 88 20 130/72 (91) 100 08/23/18 08:00 87 08/23/18 04:00 97.7 80 20 149/79 (102) 100 08/23/18 04:00 84 08/23/18 00:00 97.7 65 20 120/57 (78) 100 08/23/18 00:00 68 08/22/18 23:01 Nasal Cannula 3.0 08/22/18 20:19 66 102/54 08/22/18 20:00 79 08/22/18 20:00 97.7 66 20 102/54 (70) 98 Intake and Output 08/22/18 08/23/18 19:00 07:00 Intake Total 360 ml 1100 ml Output Total 200 ml 900 ml Balance 160 ml 200 ml Intake Oral 360 ml 200 ml IV Total 900 ml Output Urine Total 200 ml 900 ml # Voids 2 # Bowel Movements 1 Laboratory Tests Test 08/23/18 06:20 White Blood Count 14.5 K/UL (4.8-10.8) H Red Blood Count 3.62 M/UL (4.70-6.10) L Hemoglobin 11.6 G/DL (14.2-18.0) L Hematocrit 34.0 % (42.0-52.0) L Mean Corpuscular Volume 94 FL (80-99) Mean Corpuscular Hemoglobin 32.0 PG (27.0-31.0) H Mean Corpuscular Hemoglobin Concent 34.1 G/DL (32.0-36.0) Red Cell Distribution Width 12.2 % (11.6-14.8) Platelet Count 341 K/UL (150-450) Mean Platelet Volume 5.9 FL (6.5-10.1) L Neutrophils (%) (Auto) 79.7 % (45.0-75.0) H Lymphocytes (%) (Auto) 14.3 % (20.0-45.0) L Monocytes (%) (Auto) 5.3 % (1.0-10.0) Eosinophils (%) (Auto) 0.5 % (0.0-3.0) Basophils (%) (Auto) 0.3 % (0.0-2.0) Sodium Level 140 MMOL/L (136-145) Potassium Level 3.6 MMOL/L (3.5-5.1) Chloride Level 103 MMOL/L (98-107) Carbon Dioxide Level 31 MMOL/L (21-32) Anion Gap 6 mmol/L (5-15) Blood Urea Nitrogen 46 mg/dL (7-18) H Creatinine 1.6 MG/DL (0.55-1.30) H Estimat Glomerular Filtration Rate mL/min (>60) Glucose Level 144 MG/DL (74-106) H Uric Acid 7.0 MG/DL (2.6-7.2) Calcium Level 9.0 MG/DL (8.5-10.1) Phosphorus Level 2.4 MG/DL (2.5-4.9) L Magnesium Level 1.5 MG/DL (1.8-2.4) L Total Bilirubin 0.4 MG/DL (0.2-1.0) Aspartate Amino Transf (AST/SGOT) 44 U/L (15-37) H Alanine Aminotransferase (ALT/SGPT) 56 U/L (12-78) Alkaline Phosphatase 68 U/L (46-116) Troponin I 0.033 ng/mL (0.000-0.056) Pro-B-Type Natriuretic Peptide 01858 pg/mL (0-125) H Total Protein 7.9 G/DL (6.4-8.2) Albumin 2.1 G/DL (3.4-5.0) L Globulin 5.8 g/dL Albumin/Globulin Ratio 0.4 (1.0-2.7) L Height (Feet): 5 Height (Inches): 5.00 Weight (Pounds): 100 Medications Current Medications Medications (Trade) Dose Ordered Sig/Marleni Route PRN Reason Start Time Stop Time Status Last Admin Dose Admin Acetaminophen (Tylenol) 650 mg Q6H PRN ORAL Mild Pain/Temp > 100.5 08/21/18 02:00 09/20/18 01:59 08/22/18 16:26 Amlodipine Besylate (Norvasc) 2.5 mg DAILY ORAL 08/22/18 09:00 09/21/18 08:59 08/23/18 08:44 Aripiprazole (Abilify) 2 mg DAILY ORAL 08/21/18 09:00 09/20/18 08:59 08/23/18 08:44 Dextrose/ Electrolytes 1,000 ml @ 75 mls/hr [id number] IV 08/23/18 03:00 09/20/18 02:59 08/23/18 06:44 Folic Acid (Folate) 2 mg DAILY ORAL 08/22/18 14:45 09/21/18 14:44 08/23/18 08:44 Heparin Sodium (Porcine) (Heparin 5000 units/ml) 5,000 units EVERY 12 HOURS SUBQ 08/21/18 09:00 09/20/18 08:59 08/23/18 08:47 Levofloxacin 150 ml @ 100 mls/hr Q48H IVPB 08/23/18 13:00 08/30/18 12:59 08/23/18 12:53 Metoprolol Tartrate (Lopressor) 25 mg Q12HR ORAL 08/22/18 21:00 09/21/18 20:59 08/23/18 08:45 Pantoprazole (Protonix) 40 mg DAILY ORAL 08/22/18 14:45 09/21/18 14:44 08/23/18 08:44 Assessment/Plan Problem List: (1) Decubital ulcer Assessment & Plan: Pt presents with multiple pressure injuries on admission. DTPI noted to sacrum (L)3.5cm x (W)3cm .Wound maroon,purple in center with fluctuance. Non-blanchable erythema periwound. Pt verbalized pain at site when minimally palpated. DTPI noted to L ischium -Blood filled blister with Non-blanchable erythema periwound (L)4cm x (W)4.5cm .Site tender when minimally palpated. DTPI noted to R ischium (L)6cm x (W)8cm .Wound maroon ,partially opened.No odor or exudate noted.Pt verbalized pain at site when minimally palpated. Non-blanchable erythema noted Distal /lateral R tibia (L)2.3cm x(W)1cm. DTPI noted to lateral R heel -Intact blood filled blister with non-blanchable erythema periwound .R heel boggy .L heel DTPI (L)4cm x (W)5cm with area of fluctuance centrally, purple in colour. Non- blanchable erythema periwound.Pt verbalized both heels are tender when minimally palpated. all wounds present upon admission and will be cared for during hospital stay. Tx.Plan: Apply Moisture Barrier paste (Calazime or Triad) to sacral wound cover with Optifoam drsg change every 3 days and prn. Apply Cavilon wipes to R and L Ischial wounds .Cover with Optifoam drsg change every 3 days and prn. Apply Cavilon wipes to both heels DTPI. Cover with Optifoam drsg. Change every 7 days and prn. Off-load heels with pillow. Apply Cavilon wipe to lateral R tibia.Cover with Optifoam drsg .Change every 7 days and prn. Air Fluidized mattress. Reposition at minimum every 2 hours or as tolerated. ICD Codes: L89.90 - Pressure ulcer of unspecified site, unspecified stage SNOMED: 549898441 (2) Sepsis Assessment & Plan: ICD Codes: A41.9 - Sepsis, unspecified organism SNOMED: 23054254 EdsondelmaMichael Aug 23, 2018 18:24
[2018-08-23 20:00] VITALS: BP 128/70
--- NOTE | 2018-08-23 20:15 | Consultation ---
DATE OF CONSULTATION: 08/22/2018 INFECTIOUS DISEASE CONSULTATION CONSULTING PHYSICIAN: Satinder Palencia M.D. REQUESTING PHYSICIAN: Jose Rooney M.D. REASON FOR CONSULTATION: Evaluation of the patient for leukocytosis, urinary tract infection, chronic obstructive pulmonary disease exacerbation, and antibiotic management. HISTORY OF PRESENT ILLNESS: The patient is an 83-year-old male, poor historian with multiple medical problems, as listed below, who was admitted to this medical center from longterm facility due to shortness of breath. The patient was found to have leukocytosis in the range of 14,000. Chest x-ray has been unremarkable. UA showed pyuria. The patient has been started on IV antibiotics, however, white blood cell has not improved. Infectious Disease consultation has been requested for further evaluation of the patient and antibiotic management. PAST MEDICAL HISTORY: 1. Hypertension. 2. Atrial fibrillation. 3. CVA. 4. Dementia. 5. Hyperlipidemia. MEDICATIONS: Rocephin. ALLERGIES: No known drug allergies. SOCIAL HISTORY: Lives [facility] FAMILY HISTORY: Unavailable. REVIEW OF SYSTEMS: The patient is a poor historian. Not able to provide detailed information. PHYSICAL EXAMINATION: VITAL SIGNS: Temperature 97.8, pulse 86, respiratory rate 18, and blood pressure 130/72. HEENT: No pale conjunctivae. No icterus. NECK: No lymphadenopathy. CHEST: Coarse breathing sounds. HEART: S1 and S2. ABDOMEN: Soft. EXTREMITY: No cyanosis. NEUROLOGIC: Awake. LABORATORY DATA: White blood cells. 14.5, hemoglobin 11.6, and platelets 341,000. UA, 40 to 60 white blood cells and 20 to 30 red blood cells. BUN 46 and creatinine 1.6. ALT, AST, and alkaline phosphatase are unremarkable. BNP 5000. Blood culture is pending. Urine culture, E. coli, rice susceptible. ASSESSMENT: The patient is an 83-year-old male with, 1. Leukocytosis. 2. Afebrile. 3. Urinary tract infection. Urine culture, Escherichia coli. 4. Chronic obstructive pulmonary disease exacerbation. PLAN: 1. We will change Rocephin to Levaquin (for coverage of chronic obstructive pulmonary disease exacerbation/urinary tract infection) day #10/11. 2. Monitor CBC. 3. Monitor BMP. 4. Monitor cultures (blood). 5. Repeat chest x-ray. 6. Based on the patient's clinical course and labs, we will do further recommendations. Thank you for this consultation. I will follow the patient with you during this admission. Satinder Palencia M.D. DR: CLEOPATRA JOB#: [id number] CC:
[2018-08-24] VITALS: BP 169/79
[2018-08-24 04:00] VITALS: BP 146/66
[2018-08-24] MEDS: D5W w/KCl 20mEq 1,000 ML IV SCH ×2 (06:02→18:21)
[2018-08-24 08:00] VITALS: BP 122/74
[2018-08-24] MEDS: ARIPiprazole 2mg tab ORAL SCH (08:44)
[2018-08-24] MEDS: Metoprolol 25mg tab ORAL SCH ×2 (08:46→21:40)
[2018-08-24] MEDS: Heparin 5000 units/ml inj SUBQ SCH ×2 (08:49→21:41)
--- NOTE | 2018-08-24 09:21 | Nephrology Progress Note ---
Assessment/Plan Problem List: (1) Renal failure Assessment: acute (2) Dehydration (3) Sepsis (4) UTI (urinary tract infection) (5) Atrial fibrillation Assessment Renal failure /Dehydration improving Sepsis / UTI Hypertension. Atrial fibrillation. Cerebrovascular disease. Alzheimer's dementia. Hypercholesterolemia. Plan today's labs pending Hydrate- monitor renal parameters and lytes gastric support per orders Subjective ROS Limited/Unobtainable: No Objective Objective Last 24 Hour Vital Signs Date Time Temp Pulse Resp B/P (MAP) Pulse Ox O2 Delivery O2 Flow Rate FiO2 08/24/18 08:46 77 124/78 08/24/18 08:45 77 124/78 08/24/18 04:00 97.9 53 18 146/66 (92) 100 08/24/18 04:00 52 08/24/18 00:00 97.6 58 20 169/79 (109) 97 08/24/18 00:00 62 08/23/18 21:18 79 128/70 08/23/18 21:00 Nasal Cannula 2.0 08/23/18 20:00 80 08/23/18 20:00 98.7 79 20 128/70 (89) 100 08/23/18 16:00 71 08/23/18 16:00 97.3 68 20 101/77 (85) 99 08/23/18 12:00 99.1 71 20 146/80 (102) 99 08/23/18 12:00 81 Intake and Output 08/23/18 08/24/18 18:59 06:59 Intake Total 845 ml 796.667 ml Output Total 500 ml 400 ml Balance 345 ml 396.667 ml Intake Oral 520 ml IV Total 325 ml 796.667 ml Output Urine Total 500 ml 400 ml # Voids 2 2 # Bowel Movements 1 2 Laboratory Tests 08/24/18 07:10: White Blood Count [Pending], Red Blood Count [Pending], Hemoglobin [Pending], Hematocrit [Pending], Mean Corpuscular Volume [Pending], Mean Corpuscular Hemoglobin [Pending], Mean Corpuscular Hemoglobin Concent [Pending], Red Cell Distribution Width [Pending], Platelet Count [Pending], Mean Platelet Volume [ Pending], Neutrophils (%) (Auto) [Pending], Lymphocytes (%) (Auto) [Pending], Monocytes (%) (Auto) [Pending], Eosinophils (%) (Auto) [Pending], Basophils (%) (Auto) [Pending], Erythrocyte Sedimentation Rate [Pending], Sodium Level [ Pending], Potassium Level [Pending], Chloride Level [Pending], Carbon Dioxide Level [Pending], Blood Urea Nitrogen [Pending], Creatinine [Pending], Estimat Glomerular Filtration Rate [Pending], Glucose Level [Pending], Calcium Level [ Pending], Phosphorus Level [Pending], Magnesium Level [Pending], Total Bilirubin [Pending], Aspartate Amino Transf (AST/SGOT) [Pending], Alanine Aminotransferase (ALT/SGPT) [Pending], Alkaline Phosphatase [Pending], C- Reactive Protein, Quantitative [Pending], Total Protein [Pending], Albumin [ Pending], Globulin [Pending] Height (Feet): 5 Height (Inches): 5.00 Weight (Pounds): 100 General Appearance: no apparent distress Objective no change Kash Landry MD Aug 24, 2018 09:21
--- NOTE | 2018-08-24 09:27 | Cardiology Progress Note ---
Assessment/Plan Status: stable Assessment/Plan Asssessment/plan Renal failure /Dehydration Sepsis / UTI Hypertension. Atrial fibrillation. Cerebrovascular disease. Alzheimer's dementia. Hypercholesterolemia Echocardiogram to evaluate LV function Trend troponin NO indication for cardiac cath or ischemia evaluation Rate control AFIB Aspirin Anticoagulation Atorvastatin Namenda/aricept for dementia Fluids for MARQUIS Mild diuresis for elevated BNP V/Q scan negative Levaquin for COPD Wound care per surgery Subjective Cardiovascular: Reports: no symptoms Respiratory: Reports: no symptoms Gastrointestinal/Abdominal: Reports: no symptoms Genitourinary: Reports: no symptoms Subjective Patient with no acute events, remains on nasal cannula, no complaints, no distress, Started on levaquin, V/Q scan negative Objective Last 24 Hour Vital Signs Date Time Temp Pulse Resp B/P (MAP) Pulse Ox O2 Delivery O2 Flow Rate FiO2 08/24/18 08:46 77 124/78 08/24/18 08:45 77 124/78 08/24/18 04:00 97.9 53 18 146/66 (92) 100 08/24/18 04:00 52 08/24/18 00:00 97.6 58 20 169/79 (109) 97 08/24/18 00:00 62 08/23/18 21:18 79 128/70 08/23/18 21:00 Nasal Cannula 2.0 08/23/18 20:00 80 08/23/18 20:00 98.7 79 20 128/70 (89) 100 08/23/18 16:00 71 08/23/18 16:00 97.3 68 20 101/77 (85) 99 08/23/18 12:00 99.1 71 20 146/80 (102) 99 08/23/18 12:00 81 General Appearance: no apparent distress, alert EENT: PERRL/EOMI, normal ENT inspection Neck: non-tender, normal alignment Rhythm: NSR Cardiovascular: normal peripheral pulses, normal rate, regular rhythm Respiratory/Chest: chest wall non-tender, lungs clear Abdomen: normal bowel sounds, non tender, soft, no organomegaly Extremities: normal range of motion, non-tender 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, no motor/sensory deficits Intake and Output 08/23/18 08/24/18 18:59 06:59 Intake Total 845 ml 796.667 ml Output Total 500 ml 400 ml Balance 345 ml 396.667 ml Intake Oral 520 ml IV Total 325 ml 796.667 ml Output Urine Total 500 ml 400 ml # Voids 2 2 # Bowel Movements 1 2 Laboratory Tests Test 08/24/18 07:10 White Blood Count Pending Red Blood Count Pending Hemoglobin Pending Hematocrit Pending Mean Corpuscular Volume Pending Mean Corpuscular Hemoglobin Pending Mean Corpuscular Hemoglobin Concent Pending Red Cell Distribution Width Pending Platelet Count Pending Mean Platelet Volume Pending Neutrophils (%) (Auto) Pending Lymphocytes (%) (Auto) Pending Monocytes (%) (Auto) Pending Eosinophils (%) (Auto) Pending Basophils (%) (Auto) Pending Erythrocyte Sedimentation Rate Pending Sodium Level Pending Potassium Level Pending Chloride Level Pending Carbon Dioxide Level Pending Blood Urea Nitrogen Pending Creatinine Pending Estimat Glomerular Filtration Rate Pending Glucose Level Pending Calcium Level Pending Phosphorus Level Pending Magnesium Level Pending Total Bilirubin Pending Aspartate Amino Transf (AST/SGOT) Pending Alanine Aminotransferase (ALT/SGPT) Pending Alkaline Phosphatase Pending C-Reactive Protein, Quantitative Pending Total Protein Pending Albumin Pending Globulin Pending Microbiology Date/Time Source Procedure Growth Status 08/21/18 21:10 Rectum VRE Culture - Final NO VANCOMYCIN RESISTANT ENTEROCOCCUS ... Complete FilsoSerg lau MD Aug 24, 2018 09:27
[2018-08-24 09:50] LABS: BASOPHILS % (AUTO) 0.2 % (0.0-2.0); EOSINOPHILS % (AUTO) 0.3 % (0.0-3.0); HEMOGLOBIN 11.5 G/DL (14.2-18.0); LYMPHOCYTES % (AUTO) 13.6 % (20.0-45.0); MEAN CORPUSCULAR VOLUME 94 FL (80-99); MONOCYTES % (AUTO) 4.4 % (1.0-10.0); NEUTROPHILS % (AUTO) 81.5 % (45.0-75.0); PLATELET COUNT 339 K/UL (150-450); RED BLOOD COUNT 3.52 M/UL (4.70-6.10); RED CELL DISTRIBUTION WIDTH 11.7 % (11.6-14.8); WHITE BLOOD COUNT 13.1 K/UL (4.8-10.8)
[2018-08-24 09:57] LABS: ALANINE AMINOTRANSFERASE 50 U/L (12-78); ALBUMIN/GLOBULIN RATIO 0.4 (1.0-2.7); ALKALINE PHOSPHATASE 67 U/L (46-116); ANION GAP 6 mmol/L (5-15); ASPARTATE AMINO TRANSFERASE 36 U/L (15-37); BILIRUBIN,TOTAL 0.5 MG/DL (0.2-1.0); BLOOD UREA NITROGEN 34 mg/dL (7-18); CALCIUM 8.7 MG/DL (8.5-10.1); CARBON DIOXIDE 31 MMOL/L (21-32); CHLORIDE 102 MMOL/L (98-107); CREATININE 1.3 MG/DL (0.55-1.30); POTASSIUM 3.7 MMOL/L (3.5-5.1); SODIUM 139 MMOL/L (136-145)
--- NOTE | 2018-08-24 10:07 | Pulmonology Progress Note ---
Assessment/Plan Problems: (1) Acute respiratory failure (2) Sepsis (3) Alzheimer's dementia (4) Hypertension (5) Renal failure Assessment/Plan improving VQ scan was negative swallow study in process monitor BP check electrolytes social service consult to find family members and discuss code status. Subjective ROS Limited/Unobtainable: No Interval Events: eating well, no new complains Allergies: Coded Allergies: No Known Allergies (Unverified , 06/17/18) Objective Last 24 Hour Vital Signs Date Time Temp Pulse Resp B/P (MAP) Pulse Ox O2 Delivery O2 Flow Rate FiO2 08/24/18 08:46 77 124/78 08/24/18 08:45 77 124/78 08/24/18 08:00 72 08/24/18 04:00 97.9 53 18 146/66 (92) 100 08/24/18 04:00 52 08/24/18 00:00 97.6 58 20 169/79 (109) 97 08/24/18 00:00 62 08/23/18 21:18 79 128/70 08/23/18 21:00 Nasal Cannula 2.0 08/23/18 20:00 80 08/23/18 20:00 98.7 79 20 128/70 (89) 100 08/23/18 16:00 71 08/23/18 16:00 97.3 68 20 101/77 (85) 99 08/23/18 12:00 99.1 71 20 146/80 (102) 99 08/23/18 12:00 81 Intake and Output 08/23/18 08/24/18 18:59 06:59 Intake Total 845 ml 796.667 ml Output Total 500 ml 400 ml Balance 345 ml 396.667 ml Intake Oral 520 ml IV Total 325 ml 796.667 ml Output Urine Total 500 ml 400 ml # Voids 2 2 # Bowel Movements 1 2 General Appearance: cachetic HEENT: normocephalic Respiratory/Chest: chest wall non-tender, lungs clear Cardiovascular: normal peripheral pulses, normal rate Abdomen: normal bowel sounds, soft, non tender Genitourinary: normal external genitalia Extremities: no cyanosis 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 Complete Laboratory Tests 08/24/18 07:10: White Blood Count 13.1H, Red Blood Count 3.52L, Hemoglobin 11.5L, Hematocrit 33.0L, Mean Corpuscular Volume 94, Mean Corpuscular Hemoglobin 32.6H, Mean Corpuscular Hemoglobin Concent 34.7, Red Cell Distribution Width 11.7, Platelet Count 339, Mean Platelet Volume 5.9L, Neutrophils (%) (Auto) 81.5H, Lymphocytes (%) (Auto) 13.6L, Monocytes (%) (Auto) 4.4, Eosinophils (%) (Auto) 0.3, Basophils (%) (Auto) 0.2, Erythrocyte Sedimentation Rate [Pending], Sodium Level 139, Potassium Level 3.7, Chloride Level 102, Carbon Dioxide Level 31, Anion Gap 6, Blood Urea Nitrogen 34H, Creatinine 1.3, Estimat Glomerular Filtration Rate , Glucose Level 118H, Calcium Level 8.7, Phosphorus Level 3.0, Magnesium Level 1.7L, Total Bilirubin 0.5, Aspartate Amino Transf (AST/SGOT) 36 , Alanine Aminotransferase (ALT/SGPT) 50, Alkaline Phosphatase 67, C-Reactive Protein, Quantitative [Pending], Total Protein 7.7, Albumin 2.0L, Globulin 5.7, Albumin/Globulin Ratio 0.4L Current Medications Medications (Trade) Dose Ordered Sig/Marleni Route PRN Reason Start Time Stop Time Status Last Admin Dose Admin Acetaminophen (Tylenol) 650 mg Q6H PRN ORAL Mild Pain/Temp > 100.5 08/21/18 02:00 09/20/18 01:59 08/22/18 16:26 Amlodipine Besylate (Norvasc) 2.5 mg DAILY ORAL 08/22/18 09:00 09/21/18 08:59 08/24/18 08:45 Aripiprazole (Abilify) 2 mg DAILY ORAL 08/21/18 09:00 09/20/18 08:59 08/24/18 08:44 Dextrose/ Electrolytes 1,000 ml @ 75 mls/hr [id number] IV 08/23/18 03:00 09/20/18 02:59 08/24/18 06:02 Folic Acid (Folate) 2 mg DAILY ORAL 08/22/18 14:45 09/21/18 14:44 08/24/18 08:45 Heparin Sodium (Porcine) (Heparin 5000 units/ml) 5,000 units EVERY 12 HOURS SUBQ 08/21/18 09:00 09/20/18 08:59 08/24/18 08:49 Levofloxacin 150 ml @ 100 mls/hr Q48H IVPB 08/23/18 13:00 08/30/18 12:59 08/23/18 12:53 Metoprolol Tartrate (Lopressor) 25 mg Q12HR ORAL 08/22/18 21:00 09/21/18 20:59 08/24/18 08:46 Pantoprazole (Protonix) 40 mg DAILY ORAL 08/22/18 14:45 09/21/18 14:44 08/24/18 08:45 Jose Rooney MD Aug 24, 2018 10:07
--- NOTE | 2018-08-24 11:14 | General Progress Note ---
Assessment/Plan Problem List: (1) Alzheimer's dementia ICD Codes: G30.9 - Alzheimer's disease, unspecified; F02.80 - Dementia in other diseases classified elsewhere without behavioral disturbance SNOMED: 77956374 (2) Cerebral vascular disease ICD Codes: I67.9 - Cerebrovascular disease, unspecified SNOMED: 30029119 Status: stable Assessment/Plan abilify 2mg qam the pt lacks capacity to make decisions. Subjective Neurologic/Psychiatric: Reports: anxiety, depressed Allergies: Coded Allergies: No Known Allergies (Unverified , 06/17/18) Subjective the pt is a poor historian he is able to answer simple questions. Objective Last 24 Hour Vital Signs Date Time Temp Pulse Resp B/P (MAP) Pulse Ox O2 Delivery O2 Flow Rate FiO2 08/24/18 09:00 Nasal Cannula 2.0 08/24/18 08:46 77 124/78 08/24/18 08:45 77 124/78 08/24/18 08:00 72 08/24/18 08:00 98.2 80 18 122/74 (90) 100 08/24/18 04:00 97.9 53 18 146/66 (92) 100 08/24/18 04:00 52 08/24/18 00:00 97.6 58 20 169/79 (109) 97 08/24/18 00:00 62 08/23/18 21:18 79 128/70 08/23/18 21:00 Nasal Cannula 2.0 08/23/18 20:00 80 08/23/18 20:00 98.7 79 20 128/70 (89) 100 08/23/18 16:00 71 08/23/18 16:00 97.3 68 20 101/77 (85) 99 08/23/18 12:00 99.1 71 20 146/80 (102) 99 08/23/18 12:00 81 Intake and Output 08/23/18 08/24/18 18:59 06:59 Intake Total 845 ml 796.667 ml Output Total 500 ml 400 ml Balance 345 ml 396.667 ml Intake Oral 520 ml IV Total 325 ml 796.667 ml Output Urine Total 500 ml 400 ml # Voids 2 2 # Bowel Movements 1 2 Laboratory Tests 08/24/18 07:10: White Blood Count 13.1H, Red Blood Count 3.52L, Hemoglobin 11.5L, Hematocrit 33.0L, Mean Corpuscular Volume 94, Mean Corpuscular Hemoglobin 32.6H, Mean Corpuscular Hemoglobin Concent 34.7, Red Cell Distribution Width 11.7, Platelet Count 339, Mean Platelet Volume 5.9L, Neutrophils (%) (Auto) 81.5H, Lymphocytes (%) (Auto) 13.6L, Monocytes (%) (Auto) 4.4, Eosinophils (%) (Auto) 0.3, Basophils (%) (Auto) 0.2, Erythrocyte Sedimentation Rate 110H, Sodium Level 139 , Potassium Level 3.7, Chloride Level 102, Carbon Dioxide Level 31, Anion Gap 6 , Blood Urea Nitrogen 34H, Creatinine 1.3, Estimat Glomerular Filtration Rate , Glucose Level 118H, Calcium Level 8.7, Phosphorus Level 3.0, Magnesium Level 1.7L, Total Bilirubin 0.5, Aspartate Amino Transf (AST/SGOT) 36, Alanine Aminotransferase (ALT/SGPT) 50, Alkaline Phosphatase 67, C-Reactive Protein, Quantitative 13.4H, Total Protein 7.7, Albumin 2.0L, Globulin 5.7, Albumin/ Globulin Ratio 0.4L Height (Feet): 5 Height (Inches): 5.00 Weight (Pounds): 100 General Appearance: alert, confused Neurologic: depressed affect Raulito Avilez MD Aug 24, 2018 11:14
[2018-08-24 12:00] VITALS: BP 140/73
--- NOTE | 2018-08-24 14:47 | Cardiology Report ---
APPROVED REPORT EXAM: Two-dimensional and M-mode echocardiogram with Doppler and color Doppler. INDICATION Congestive Heart Failure M-Mode DIMENSIONS IVSd1.6 (0.7-1.1cm)Left Atrium (MM)3.3 (1.6-4.0cm) LVDd5.1 (3.5-5.6cm)Aortic Root3.3 (2.0-3.7cm) PWd1.6 (0.7-1.1cm)Aortic Cusp Exc.1.1 (1.5-2.0cm) IVSs2.1 cm LVDs3.6 (2.5-4.0cm) PWs1.8 cm Technically difficult study due to pts position . Normal left ventricular chamber size.Mild global LV Hypokinesis. Study quality precludes accurate assessment of regional wall motion. Left ventricular ejection fraction estimated to be 45-50%. Mild left ventricular hypertrophy . No evidence of pericardial effusion. All other cardiac chamber sizes are within normal limits. Aortic valve calcification with decreased cusp excursion. Heavily Thickened mitral valve leaflets with normal excursion. Heavily Mitral annulus and aortic root calcification. Normal pulmonic valve structure. Normal tricuspid valve structure. IVC at size 1.9 cm without physiologic collapse, suggestive to increase RA pressure . A color flow and spectral Doppler study was performed and revealed: No aortic regurgitation.. Peak aortic valve gradient of 8 mm Hg and a mean of 5 mmHg. Aortic valve area 2. 9 cm2 calculated by continuity equation. Mild to moderate mitral regurgitation. Mild tricuspid regurgitation. Tricuspid systolic velocities suggests peak right ventricular systolic pressure of 30 mmHg. No Pulmonic regurgitation present.
[2018-08-24 16:00] VITALS: BP 126/56
--- NOTE | 2018-08-24 17:26 | Infectious Diseases Prog Note ---
Assessment/Plan Assessment/Plan ASSESSMENT: The patient is an 83-year-old male with, Leukocytosis Afebrile Urinary tract infection. Urine culture, Escherichia coli Chronic obstructive pulmonary disease exacerbation CXR: NAPD V/Q Scan : no focal segmental or subsegmental perfusion defects EF : 50% Hypertension Atrial fibrillation CVA Dementia Hyperlipidemia PLAN: Levaquin (for coverage of chronic obstructive pulmonary disease exacerbation/ urinary tract infection) day # 2/. Monitor CBC. Monitor BMP. Monitor cultures (blood). Subjective Allergies: Coded Allergies: No Known Allergies (Unverified , 06/17/18) Subjective Afebrile Objective Vital Signs Last 24 Hour Vital Signs Date Time Temp Pulse Resp B/P (MAP) Pulse Ox O2 Delivery O2 Flow Rate FiO2 08/24/18 16:00 98.8 75 20 126/56 (79) 96 08/24/18 12:00 97.7 65 20 140/73 (95) 93 08/24/18 12:00 65 08/24/18 09:00 Nasal Cannula 2.0 08/24/18 08:46 77 124/78 08/24/18 08:45 77 124/78 08/24/18 08:00 72 08/24/18 08:00 98.2 80 18 122/74 (90) 100 08/24/18 04:00 97.9 53 18 146/66 (92) 100 08/24/18 04:00 52 08/24/18 00:00 97.6 58 20 169/79 (109) 97 08/24/18 00:00 62 08/23/18 21:18 79 128/70 08/23/18 21:00 Nasal Cannula 2.0 08/23/18 20:00 80 08/23/18 20:00 98.7 79 20 128/70 (89) 100 Height (Feet): 5 Height (Inches): 5.00 Weight (Pounds): 100 HEENT: anicteric Respiratory/Chest: normal breath sounds Cardiovascular: normal rate Abdomen: non distended Microbiology Date/Time Source Procedure Growth Status 08/21/18 21:10 Rectum VRE Culture - Final NO VANCOMYCIN RESISTANT ENTEROCOCCUS ... Complete Laboratory Tests Test 08/24/18 07:10 White Blood Count 13.1 K/UL (4.8-10.8) H Red Blood Count 3.52 M/UL (4.70-6.10) L Hemoglobin 11.5 G/DL (14.2-18.0) L Hematocrit 33.0 % (42.0-52.0) L Mean Corpuscular Volume 94 FL (80-99) Mean Corpuscular Hemoglobin 32.6 PG (27.0-31.0) H Mean Corpuscular Hemoglobin Concent 34.7 G/DL (32.0-36.0) Red Cell Distribution Width 11.7 % (11.6-14.8) Platelet Count 339 K/UL (150-450) Mean Platelet Volume 5.9 FL (6.5-10.1) L Neutrophils (%) (Auto) 81.5 % (45.0-75.0) H Lymphocytes (%) (Auto) 13.6 % (20.0-45.0) L Monocytes (%) (Auto) 4.4 % (1.0-10.0) Eosinophils (%) (Auto) 0.3 % (0.0-3.0) Basophils (%) (Auto) 0.2 % (0.0-2.0) Erythrocyte Sedimentation Rate 110 MM/HR (0-20) H Sodium Level 139 MMOL/L (136-145) Potassium Level 3.7 MMOL/L (3.5-5.1) Chloride Level 102 MMOL/L (98-107) Carbon Dioxide Level 31 MMOL/L (21-32) Anion Gap 6 mmol/L (5-15) Blood Urea Nitrogen 34 mg/dL (7-18) H Creatinine 1.3 MG/DL (0.55-1.30) Estimat Glomerular Filtration Rate mL/min (>60) Glucose Level 118 MG/DL (74-106) H Calcium Level 8.7 MG/DL (8.5-10.1) Phosphorus Level 3.0 MG/DL (2.5-4.9) Magnesium Level 1.7 MG/DL (1.8-2.4) L Total Bilirubin 0.5 MG/DL (0.2-1.0) Aspartate Amino Transf (AST/SGOT) 36 U/L (15-37) Alanine Aminotransferase (ALT/SGPT) 50 U/L (12-78) Alkaline Phosphatase 67 U/L (46-116) C-Reactive Protein, Quantitative 13.4 mg/dL (0.00-0.90) H Total Protein 7.7 G/DL (6.4-8.2) Albumin 2.0 G/DL (3.4-5.0) L Globulin 5.7 g/dL Albumin/Globulin Ratio 0.4 (1.0-2.7) L Current Medications Medications (Trade) Dose Ordered Sig/Marleni Route PRN Reason Start Time Stop Time Status Last Admin Dose Admin Acetaminophen (Tylenol) 650 mg Q6H PRN ORAL Mild Pain/Temp > 100.5 08/21/18 02:00 09/20/18 01:59 08/22/18 16:26 Amlodipine Besylate (Norvasc) 2.5 mg DAILY ORAL 08/22/18 09:00 09/21/18 08:59 08/24/18 08:45 Aripiprazole (Abilify) 2 mg DAILY ORAL 08/21/18 09:00 09/20/18 08:59 08/24/18 08:44 Dextrose/ Electrolytes 1,000 ml @ 75 mls/hr [id number] IV 08/23/18 03:00 09/20/18 02:59 08/24/18 06:02 Folic Acid (Folate) 2 mg DAILY ORAL 08/22/18 14:45 09/21/18 14:44 08/24/18 08:45 Heparin Sodium (Porcine) (Heparin 5000 units/ml) 5,000 units EVERY 12 HOURS SUBQ 08/21/18 09:00 09/20/18 08:59 08/24/18 08:49 Levofloxacin 150 ml @ 100 mls/hr Q48H IVPB 08/23/18 13:00 08/30/18 12:59 08/23/18 12:53 Metoprolol Tartrate (Lopressor) 25 mg Q12HR ORAL 08/22/18 21:00 09/21/18 20:59 08/24/18 08:46 Pantoprazole (Protonix) 40 mg DAILY ORAL 08/22/18 14:45 09/21/18 14:44 08/24/18 08:45 Satinder Palencia MD Aug 24, 2018 17:26
--- NOTE | 2018-08-24 17:58 | Internal Med Progress Note ---
Subjective Date of Service: Aug 24, 2018 Physician Name Noe Sanchez Attending Physician Trenton Brantley MD Current Medications Medications (Trade) Dose Ordered Sig/Marleni Route PRN Reason Start Time Stop Time Status Last Admin Dose Admin Acetaminophen (Tylenol) 650 mg Q6H PRN ORAL Mild Pain/Temp > 100.5 08/21/18 02:00 09/20/18 01:59 08/22/18 16:26 Amlodipine Besylate (Norvasc) 2.5 mg DAILY ORAL 08/22/18 09:00 09/21/18 08:59 08/24/18 08:45 Aripiprazole (Abilify) 2 mg DAILY ORAL 08/21/18 09:00 09/20/18 08:59 08/24/18 08:44 Dextrose/ Electrolytes 1,000 ml @ 75 mls/hr [id number] IV 08/23/18 03:00 09/20/18 02:59 08/24/18 06:02 Folic Acid (Folate) 2 mg DAILY ORAL 08/22/18 14:45 09/21/18 14:44 08/24/18 08:45 Heparin Sodium (Porcine) (Heparin 5000 units/ml) 5,000 units EVERY 12 HOURS SUBQ 08/21/18 09:00 09/20/18 08:59 08/24/18 08:49 Levofloxacin 150 ml @ 100 mls/hr Q48H IVPB 08/23/18 13:00 08/30/18 12:59 08/23/18 12:53 Metoprolol Tartrate (Lopressor) 25 mg Q12HR ORAL 08/22/18 21:00 09/21/18 20:59 08/24/18 08:46 Pantoprazole (Protonix) 40 mg DAILY ORAL 08/22/18 14:45 09/21/18 14:44 08/24/18 08:45 Allergies: Coded Allergies: No Known Allergies (Unverified , 06/17/18) ROS Limited/Unobtainable: No Constitutional: Reports: no symptoms HEENT: Reports: no symptoms Cardiovascular: Reports: no symptoms Respiratory: Reports: shortness of breath Gastrointestinal/Abdominal: Reports: no symptoms Genitourinary: Reports: no symptoms Neurologic/Psychiatric: Reports: no symptoms Subjective 83 YO M admitted with shortness of breath. Now CHF and UTI. Cover for Int Med- Dr Brantley. Worsening leukocytosis Objective Last Vital Signs Date Time Temp Pulse Resp B/P (MAP) Pulse Ox O2 Delivery O2 Flow Rate FiO2 08/24/18 16:00 99 08/24/18 16:00 98.8 20 126/56 (79) 96 08/24/18 09:00 Nasal Cannula 2.0 08/20/18 17:21 100 Laboratory Tests Test 08/24/18 07:10 White Blood Count 13.1 K/UL (4.8-10.8) H Red Blood Count 3.52 M/UL (4.70-6.10) L Hemoglobin 11.5 G/DL (14.2-18.0) L Hematocrit 33.0 % (42.0-52.0) L Mean Corpuscular Volume 94 FL (80-99) Mean Corpuscular Hemoglobin 32.6 PG (27.0-31.0) H Mean Corpuscular Hemoglobin Concent 34.7 G/DL (32.0-36.0) Red Cell Distribution Width 11.7 % (11.6-14.8) Platelet Count 339 K/UL (150-450) Mean Platelet Volume 5.9 FL (6.5-10.1) L Neutrophils (%) (Auto) 81.5 % (45.0-75.0) H Lymphocytes (%) (Auto) 13.6 % (20.0-45.0) L Monocytes (%) (Auto) 4.4 % (1.0-10.0) Eosinophils (%) (Auto) 0.3 % (0.0-3.0) Basophils (%) (Auto) 0.2 % (0.0-2.0) Erythrocyte Sedimentation Rate 110 MM/HR (0-20) H Sodium Level 139 MMOL/L (136-145) Potassium Level 3.7 MMOL/L (3.5-5.1) Chloride Level 102 MMOL/L (98-107) Carbon Dioxide Level 31 MMOL/L (21-32) Anion Gap 6 mmol/L (5-15) Blood Urea Nitrogen 34 mg/dL (7-18) H Creatinine 1.3 MG/DL (0.55-1.30) Estimat Glomerular Filtration Rate mL/min (>60) Glucose Level 118 MG/DL (74-106) H Calcium Level 8.7 MG/DL (8.5-10.1) Phosphorus Level 3.0 MG/DL (2.5-4.9) Magnesium Level 1.7 MG/DL (1.8-2.4) L Total Bilirubin 0.5 MG/DL (0.2-1.0) Aspartate Amino Transf (AST/SGOT) 36 U/L (15-37) Alanine Aminotransferase (ALT/SGPT) 50 U/L (12-78) Alkaline Phosphatase 67 U/L (46-116) C-Reactive Protein, Quantitative 13.4 mg/dL (0.00-0.90) H Total Protein 7.7 G/DL (6.4-8.2) Albumin 2.0 G/DL (3.4-5.0) L Globulin 5.7 g/dL Albumin/Globulin Ratio 0.4 (1.0-2.7) L Microbiology Date/Time Source Procedure Growth Status 08/21/18 21:10 Rectum VRE Culture - Final NO VANCOMYCIN RESISTANT ENTEROCOCCUS ... Complete Intake and Output 08/23/18 08/24/18 19:00 07:00 Intake Total 816.667 ml 823 ml Output Total 500 ml 400 ml Balance 316.667 ml 423 ml Intake Oral 520 ml IV Total 296.667 ml 823 ml Output Urine Total 500 ml 400 ml # Voids 2 2 # Bowel Movements 1 2 Objective General Appearance: alert, mild distress, thin EENT: PERRL/EOMI, normal ENT inspection Neck: non-tender, normal alignment, supple, normal inspection Cardiovascular: normal peripheral pulses, normal rate, regular rhythm, no gallop/murmur, no JVD Respiratory/Chest: chest wall non-tender, no accessory muscle use, crackles/ rales, rhonchi - bilaterally, expiratory wheezing Abdomen: normal bowel sounds, non tender, soft, no organomegaly, no mass Extremities: normal range of motion, non-tender 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 Await cardiology consult (2) UTI (urinary tract infection) Assessment & Plan: E. Coli. D/C ceftriaxone. Start levaquin per ID (3) Atrial fibrillation (4) Hypertension Assessment & Plan: Continue norvasc (5) Alzheimer's dementia (6) Cerebral vascular disease (7) Leukocytosis Assessment & Plan: Worsening. D/C ceftriaxone; start levaquin per ID-see note. Status: progressing Assessment/Plan Discharge planning Noe Sanchez MD Aug 24, 2018 17:58
[2018-08-24 20:00] VITALS: BP 135/69
[2018-08-25] VITALS: BP 140/69
[2018-08-25 04:00] VITALS: BP 126/98
[2018-08-25 07:31] LABS: BASOPHILS % (AUTO) 0.3 % (0.0-2.0); EOSINOPHILS % (AUTO) 0.4 % (0.0-3.0); HEMATOCRIT 33.9 % (42.0-52.0); HEMOGLOBIN 11.6 G/DL (14.2-18.0); LYMPHOCYTES % (AUTO) 14.4 % (20.0-45.0); MEAN CORPUSCULAR VOLUME 93 FL (80-99); NEUTROPHILS % (AUTO) 80.9 % (45.0-75.0); PLATELET COUNT 368 K/UL (150-450); RED BLOOD COUNT 3.63 M/UL (4.70-6.10); RED CELL DISTRIBUTION WIDTH 12.2 % (11.6-14.8); WHITE BLOOD COUNT 14.2 K/UL (4.8-10.8)
[2018-08-25 07:48] LABS: ANION GAP 7 mmol/L (5-15); BLOOD UREA NITROGEN 29 mg/dL (7-18); CALCIUM 8.6 MG/DL (8.5-10.1); CARBON DIOXIDE 30 MMOL/L (21-32); CHLORIDE 100 MMOL/L (98-107); CREATININE 1.3 MG/DL (0.55-1.30); POTASSIUM 3.8 MMOL/L (3.5-5.1); SODIUM 137 MMOL/L (136-145)
[2018-08-25 08:00] VITALS: BP 120/62
[2018-08-25] MEDS: D5W w/KCl 20mEq 1,000 ML IV SCH (08:20)
--- NOTE | 2018-08-25 09:51 | General Surgery Progress Note ---
General Surgery-Progress Note Subjective Additional Comments worsening leukocytosis. exam unchanged. Objective Last 24 Hour Vital Signs Date Time Temp Pulse Resp B/P (MAP) Pulse Ox O2 Delivery O2 Flow Rate FiO2 08/25/18 04:00 97.7 67 16 126/98 (107) 99 08/25/18 04:00 64 08/25/18 00:00 61 08/25/18 00:00 98.4 66 18 140/69 (92) 99 08/24/18 21:40 113 135/69 08/24/18 21:00 Nasal Cannula 2.0 08/24/18 20:00 84 08/24/18 20:00 97.9 113 20 135/69 (91) 96 08/24/18 16:00 99 08/24/18 16:00 98.8 75 20 126/56 (79) 96 08/24/18 12:00 97.7 65 20 140/73 (95) 93 08/24/18 12:00 65 I&O Intake and Output 08/24/18 08/25/18 19:00 07:00 Intake Total 619 ml 950 ml Output Total 800 ml Balance 619 ml 150 ml Intake Oral 570 ml 50 ml IV Total 49 ml 900 ml Output Urine Total 800 ml # Voids 1 1 # Bowel Movements 3 3 Dressing: other Wound: other Drains: other Cardiovascular: RSR Respiratory: decreased breath sounds Abdomen: soft, present bowel sounds Extremities: other Laboratory Tests Test 08/25/18 06:20 White Blood Count 14.2 K/UL (4.8-10.8) H Red Blood Count 3.63 M/UL (4.70-6.10) L Hemoglobin 11.6 G/DL (14.2-18.0) L Hematocrit 33.9 % (42.0-52.0) L Mean Corpuscular Volume 93 FL (80-99) Mean Corpuscular Hemoglobin 31.8 PG (27.0-31.0) H Mean Corpuscular Hemoglobin Concent 34.1 G/DL (32.0-36.0) Red Cell Distribution Width 12.2 % (11.6-14.8) Platelet Count 368 K/UL (150-450) Mean Platelet Volume 6.0 FL (6.5-10.1) L Neutrophils (%) (Auto) 80.9 % (45.0-75.0) H Lymphocytes (%) (Auto) 14.4 % (20.0-45.0) L Monocytes (%) (Auto) 4.0 % (1.0-10.0) Eosinophils (%) (Auto) 0.4 % (0.0-3.0) Basophils (%) (Auto) 0.3 % (0.0-2.0) Sodium Level 137 MMOL/L (136-145) Potassium Level 3.8 MMOL/L (3.5-5.1) Chloride Level 100 MMOL/L (98-107) Carbon Dioxide Level 30 MMOL/L (21-32) Anion Gap 7 mmol/L (5-15) Blood Urea Nitrogen 29 mg/dL (7-18) H Creatinine 1.3 MG/DL (0.55-1.30) Estimat Glomerular Filtration Rate mL/min (>60) Glucose Level 110 MG/DL (74-106) H Calcium Level 8.6 MG/DL (8.5-10.1) Plan Problems: (1) Decubital ulcer Assessment & Plan: Pt presents with multiple pressure injuries on admission. DTPI noted to sacrum (L)3.5cm x (W)3cm .Wound maroon,purple in center with fluctuance. Non-blanchable erythema periwound. Pt verbalized pain at site when minimally palpated. DTPI noted to L ischium -Blood filled blister with Non-blanchable erythema periwound (L)4cm x (W)4.5cm .Site tender when minimally palpated. DTPI noted to R ischium (L)6cm x (W)8cm .Wound maroon ,partially opened.No odor or exudate noted.Pt verbalized pain at site when minimally palpated. Non-blanchable erythema noted Distal /lateral R tibia (L)2.3cm x(W)1cm. DTPI noted to lateral R heel -Intact blood filled blister with non-blanchable erythema periwound .R heel boggy .L heel DTPI (L)4cm x (W)5cm with area of fluctuance centrally, purple in colour. Non- blanchable erythema periwound.Pt verbalized both heels are tender when minimally palpated. all wounds present upon admission and will be cared for during hospital stay. Tx.Plan: Apply Moisture Barrier paste (Calazime or Triad) to sacral wound cover with Optifoam drsg change every 3 days and prn. Apply Cavilon wipes to R and L Ischial wounds .Cover with Optifoam drsg change every 3 days and prn. Apply Cavilon wipes to both heels DTPI. Cover with Optifoam drsg. Change every 7 days and prn. Off-load heels with pillow. Apply Cavilon wipe to lateral R tibia.Cover with Optifoam drsg .Change every 7 days and prn. Air Fluidized mattress. Reposition at minimum every 2 hours or as tolerated. (2) Sepsis Assessment & Plan: worsening leukocytosis. ESR elevated. etiology unlikely wounds cont IV Abx appreciate ID input thank you. will follow with shea. Michael Kelsey Aug 25, 2018 09:51
[2018-08-25] MEDS: ARIPiprazole 2mg tab ORAL SCH (10:08)
[2018-08-25] MEDS: Metoprolol 25mg tab ORAL SCH (10:12)
[2018-08-25] MEDS: Heparin 5000 units/ml inj SUBQ SCH (10:15)
[2018-08-25] MEDS ORDERED: LEVOFLOXACIN500 MG ORAL (10:30)
[2018-08-25] MEDS ORDERED: LOPRESSOR25 M1 ORAL (10:30)
--- NOTE | 2018-08-25 10:34 | Pulmonology Progress Note ---
Assessment/Plan Problems: (1) Acute respiratory failure (2) Sepsis (3) Alzheimer's dementia (4) Hypertension (5) Renal failure Assessment/Plan improving wbc slightly elevated swallow study noted, monitor BP check electrolytes social service consult to find family members and discuss code status. Subjective ROS Limited/Unobtainable: No Constitutional: Reports: no symptoms HEENT: Repors: no symptoms Allergies: Coded Allergies: No Known Allergies (Unverified , 06/17/18) Objective Last 24 Hour Vital Signs Date Time Temp Pulse Resp B/P (MAP) Pulse Ox O2 Delivery O2 Flow Rate FiO2 08/25/18 10:12 84 120/62 08/25/18 10:08 84 120/62 08/25/18 04:00 97.7 67 16 126/98 (107) 99 08/25/18 04:00 64 08/25/18 00:00 61 08/25/18 00:00 98.4 66 18 140/69 (92) 99 08/24/18 21:40 113 135/69 08/24/18 21:00 Nasal Cannula 2.0 08/24/18 20:00 84 08/24/18 20:00 97.9 113 20 135/69 (91) 96 08/24/18 16:00 99 08/24/18 16:00 98.8 75 20 126/56 (79) 96 08/24/18 12:00 97.7 65 20 140/73 (95) 93 08/24/18 12:00 65 Intake and Output 08/24/18 08/25/18 18:59 06:59 Intake Total 643 ml 924 ml Output Total 800 ml Balance 643 ml 124 ml Intake Oral 570 ml 50 ml IV Total 73 ml 874 ml Output Urine Total 800 ml # Voids 1 1 # Bowel Movements 3 3 General Appearance: cachetic HEENT: normocephalic, atraumatic Respiratory/Chest: chest wall non-tender, decreased breath sounds, crackles/ rales Cardiovascular: normal peripheral pulses, normal rate Abdomen: normal bowel sounds, soft, non tender Genitourinary: normal external genitalia Skin: no lesions Laboratory Tests 08/25/18 06:20: White Blood Count 14.2H, Red Blood Count 3.63L, Hemoglobin 11.6L, Hematocrit 33.9L, Mean Corpuscular Volume 93, Mean Corpuscular Hemoglobin 31.8H, Mean Corpuscular Hemoglobin Concent 34.1, Red Cell Distribution Width 12.2, Platelet Count 368, Mean Platelet Volume 6.0L, Neutrophils (%) (Auto) 80.9H, Lymphocytes (%) (Auto) 14.4L, Monocytes (%) (Auto) 4.0, Eosinophils (%) (Auto) 0.4, Basophils (%) (Auto) 0.3, Sodium Level 137, Potassium Level 3.8, Chloride Level 100, Carbon Dioxide Level 30, Anion Gap 7, Blood Urea Nitrogen 29H, Creatinine 1.3, Estimat Glomerular Filtration Rate , Glucose Level 110H, Calcium Level 8.6 Current Medications Medications (Trade) Dose Ordered Sig/Marleni Route PRN Reason Start Time Stop Time Status Last Admin Dose Admin Acetaminophen (Tylenol) 650 mg Q6H PRN ORAL Mild Pain/Temp > 100.5 08/21/18 02:00 09/20/18 01:59 08/22/18 16:26 Amlodipine Besylate (Norvasc) 2.5 mg DAILY ORAL 08/22/18 09:00 09/21/18 08:59 08/25/18 10:08 Aripiprazole (Abilify) 2 mg DAILY ORAL 08/21/18 09:00 09/20/18 08:59 08/25/18 10:08 Dextrose/ Electrolytes 1,000 ml @ 75 mls/hr [id number] IV 08/23/18 03:00 09/20/18 02:59 08/24/18 18:21 Folic Acid (Folate) 2 mg DAILY ORAL 08/22/18 14:45 09/21/18 14:44 08/25/18 10:09 Heparin Sodium (Porcine) (Heparin 5000 units/ml) 5,000 units EVERY 12 HOURS SUBQ 08/21/18 09:00 09/20/18 08:59 08/25/18 10:15 Levofloxacin 150 ml @ 100 mls/hr Q48H IVPB 08/23/18 13:00 08/30/18 12:59 08/23/18 12:53 Metoprolol Tartrate (Lopressor) 25 mg Q12HR ORAL 08/22/18 21:00 09/21/18 20:59 08/25/18 10:12 Pantoprazole (Protonix) 40 mg DAILY ORAL 08/22/18 14:45 09/21/18 14:44 08/25/18 10:09 Jose Rooney MD Aug 25, 2018 10:34
--- NOTE | 2018-08-25 10:39 | Internal Med Progress Note ---
Subjective Date of Service: Aug 25, 2018 Physician Name Noe Sanchez Attending Physician Trenton Brantley MD Current Medications Medications (Trade) Dose Ordered Sig/Marleni Route PRN Reason Start Time Stop Time Status Last Admin Dose Admin Acetaminophen (Tylenol) 650 mg Q6H PRN ORAL Mild Pain/Temp > 100.5 08/21/18 02:00 09/20/18 01:59 08/22/18 16:26 Amlodipine Besylate (Norvasc) 2.5 mg DAILY ORAL 08/22/18 09:00 09/21/18 08:59 08/25/18 10:08 Aripiprazole (Abilify) 2 mg DAILY ORAL 08/21/18 09:00 09/20/18 08:59 08/25/18 10:08 Dextrose/ Electrolytes 1,000 ml @ 75 mls/hr [id number] IV 08/23/18 03:00 09/20/18 02:59 08/24/18 18:21 Folic Acid (Folate) 2 mg DAILY ORAL 08/22/18 14:45 09/21/18 14:44 08/25/18 10:09 Heparin Sodium (Porcine) (Heparin 5000 units/ml) 5,000 units EVERY 12 HOURS SUBQ 08/21/18 09:00 09/20/18 08:59 08/25/18 10:15 Levofloxacin 150 ml @ 100 mls/hr Q48H IVPB 08/23/18 13:00 08/30/18 12:59 08/23/18 12:53 Metoprolol Tartrate (Lopressor) 25 mg Q12HR ORAL 08/22/18 21:00 09/21/18 20:59 08/25/18 10:12 Pantoprazole (Protonix) 40 mg DAILY ORAL 08/22/18 14:45 09/21/18 14:44 08/25/18 10:09 Allergies: Coded Allergies: No Known Allergies (Unverified , 06/17/18) ROS Limited/Unobtainable: No Constitutional: Reports: no symptoms HEENT: Reports: no symptoms Cardiovascular: Reports: no symptoms Respiratory: Reports: no symptoms Gastrointestinal/Abdominal: Reports: no symptoms Genitourinary: Reports: no symptoms Neurologic/Psychiatric: Reports: no symptoms Subjective 83 YO M admitted with shortness of breath. Now CHF and UTI. Cover for Int Med- Dr Brantley. Worsening leukocytosis Objective Last Vital Signs Date Time Temp Pulse Resp B/P (MAP) Pulse Ox O2 Delivery O2 Flow Rate FiO2 08/25/18 10:12 84 120/62 08/25/18 04:00 97.7 16 99 08/24/18 21:00 Nasal Cannula 2.0 08/20/18 17:21 100 Laboratory Tests Test 08/25/18 06:20 White Blood Count 14.2 K/UL (4.8-10.8) H Red Blood Count 3.63 M/UL (4.70-6.10) L Hemoglobin 11.6 G/DL (14.2-18.0) L Hematocrit 33.9 % (42.0-52.0) L Mean Corpuscular Volume 93 FL (80-99) Mean Corpuscular Hemoglobin 31.8 PG (27.0-31.0) H Mean Corpuscular Hemoglobin Concent 34.1 G/DL (32.0-36.0) Red Cell Distribution Width 12.2 % (11.6-14.8) Platelet Count 368 K/UL (150-450) Mean Platelet Volume 6.0 FL (6.5-10.1) L Neutrophils (%) (Auto) 80.9 % (45.0-75.0) H Lymphocytes (%) (Auto) 14.4 % (20.0-45.0) L Monocytes (%) (Auto) 4.0 % (1.0-10.0) Eosinophils (%) (Auto) 0.4 % (0.0-3.0) Basophils (%) (Auto) 0.3 % (0.0-2.0) Sodium Level 137 MMOL/L (136-145) Potassium Level 3.8 MMOL/L (3.5-5.1) Chloride Level 100 MMOL/L (98-107) Carbon Dioxide Level 30 MMOL/L (21-32) Anion Gap 7 mmol/L (5-15) Blood Urea Nitrogen 29 mg/dL (7-18) H Creatinine 1.3 MG/DL (0.55-1.30) Estimat Glomerular Filtration Rate mL/min (>60) Glucose Level 110 MG/DL (74-106) H Calcium Level 8.6 MG/DL (8.5-10.1) Intake and Output 08/24/18 08/25/18 19:00 07:00 Intake Total 619 ml 950 ml Output Total 800 ml Balance 619 ml 150 ml Intake Oral 570 ml 50 ml IV Total 49 ml 900 ml Output Urine Total 800 ml # Voids 1 1 # Bowel Movements 3 3 Objective General Appearance: alert, mild distress, thin EENT: PERRL/EOMI, normal ENT inspection Neck: non-tender, normal alignment, supple, normal inspection Cardiovascular: normal peripheral pulses, normal rate, regular rhythm, no gallop/murmur, no JVD Respiratory/Chest: chest wall non-tender, no accessory muscle use, crackles/ rales, rhonchi - bilaterally, expiratory wheezing Abdomen: normal bowel sounds, non tender, soft, no organomegaly, no mass Extremities: normal range of motion, non-tender Neurologic: adoption counselor II-XII grossly normal, no motor/sensory deficits Skin: normal pigmentation, warm/dry Assessment/Plan Problem List: (1) CHF (congestive heart failure) Assessment & Plan: [id number]. Await cardiology consult (2) UTI (urinary tract infection) Assessment & Plan: E. Coli. D/C ceftriaxone. Start levaquin per ID (3) Atrial fibrillation (4) Hypertension Assessment & Plan: Continue norvasc (5) Alzheimer's dementia (6) Cerebral vascular disease (7) Leukocytosis Assessment & Plan: Worsening. D/C ceftriaxone; start levaquin per ID-see note. Status: stable Assessment/Plan Discharge to [facility] Noe Sanchez MD Aug 25, 2018 10:39
--- NOTE | 2018-08-25 11:20 | Nephrology Progress Note ---
Assessment/Plan Problem List: (1) Renal failure Assessment: acute (2) Dehydration (3) Sepsis (4) UTI (urinary tract infection) (5) Atrial fibrillation Assessment Renal failure /Dehydration improving Sepsis / UTI Hypertension. Atrial fibrillation. Cerebrovascular disease. Alzheimer's dementia. Hypercholesterolemia. Plan Per ID Hydrate- monitor renal parameters and lytes gastric support per orders Subjective ROS Limited/Unobtainable: No Constitutional: Reports: weakness Objective Objective Last 24 Hour Vital Signs Date Time Temp Pulse Resp B/P (MAP) Pulse Ox O2 Delivery O2 Flow Rate FiO2 08/25/18 10:12 84 120/62 08/25/18 10:08 84 120/62 08/25/18 04:00 97.7 67 16 126/98 (107) 99 08/25/18 04:00 64 08/25/18 00:00 61 08/25/18 00:00 98.4 66 18 140/69 (92) 99 08/24/18 21:40 113 135/69 08/24/18 21:00 Nasal Cannula 2.0 08/24/18 20:00 84 08/24/18 20:00 97.9 113 20 135/69 (91) 96 08/24/18 16:00 99 08/24/18 16:00 98.8 75 20 126/56 (79) 96 08/24/18 12:00 97.7 65 20 140/73 (95) 93 08/24/18 12:00 65 Intake and Output 08/24/18 08/25/18 18:59 06:59 Intake Total 643 ml 924 ml Output Total 800 ml Balance 643 ml 124 ml Intake Oral 570 ml 50 ml IV Total 73 ml 874 ml Output Urine Total 800 ml # Voids 1 1 # Bowel Movements 3 3 Laboratory Tests 08/25/18 06:20: White Blood Count 14.2H, Red Blood Count 3.63L, Hemoglobin 11.6L, Hematocrit 33.9L, Mean Corpuscular Volume 93, Mean Corpuscular Hemoglobin 31.8H, Mean Corpuscular Hemoglobin Concent 34.1, Red Cell Distribution Width 12.2, Platelet Count 368, Mean Platelet Volume 6.0L, Neutrophils (%) (Auto) 80.9H, Lymphocytes (%) (Auto) 14.4L, Monocytes (%) (Auto) 4.0, Eosinophils (%) (Auto) 0.4, Basophils (%) (Auto) 0.3, Sodium Level 137, Potassium Level 3.8, Chloride Level 100, Carbon Dioxide Level 30, Anion Gap 7, Blood Urea Nitrogen 29H, Creatinine 1.3, Estimat Glomerular Filtration Rate , Glucose Level 110H, Calcium Level 8.6 Height (Feet): 5 Height (Inches): 5.00 Weight (Pounds): 123 General Appearance: no apparent distress Objective no change Kash Landry MD Aug 25, 2018 11:20
[2018-08-25 12:00] VITALS: BP 112/67
[2018-08-25] MEDS ORDERED: Tubing IV Secondary IV ONE (14:49)
[2018-08-25] MEDS ORDERED: NS 275ml ONE (14:49)
--- NOTE | 2018-08-25 20:02 | General Progress Note ---
Assessment/Plan Problem List: (1) Alzheimer's dementia ICD Codes: G30.9 - Alzheimer's disease, unspecified; F02.80 - Dementia in other diseases classified elsewhere without behavioral disturbance SNOMED: 27320593 (2) Cerebral vascular disease ICD Codes: I67.9 - Cerebrovascular disease, unspecified SNOMED: 78206899 Status: unchanged Assessment/Plan abilify 2mg qam the pt lacks capacity to make decisions. Subjective Neurologic/Psychiatric: Reports: anxiety, depressed, emotional problems Allergies: Coded Allergies: No Known Allergies (Unverified , 06/17/18) Subjective the pt is a poor historian he is the same Objective Last 24 Hour Vital Signs Date Time Temp Pulse Resp B/P (MAP) Pulse Ox O2 Delivery O2 Flow Rate FiO2 08/25/18 12:00 75 08/25/18 12:00 98.2 91 20 112/67 (82) 99 08/25/18 10:12 84 120/62 08/25/18 10:08 84 120/62 08/25/18 09:00 Room Air 08/25/18 08:00 97.3 84 20 120/62 (81) 99 08/25/18 08:00 76 08/25/18 04:00 97.7 67 16 126/98 (107) 99 08/25/18 04:00 64 08/25/18 00:00 61 08/25/18 00:00 98.4 66 18 140/69 (92) 99 08/24/18 21:40 113 135/69 08/24/18 21:00 Nasal Cannula 2.0 Intake and Output 08/24/18 08/25/18 19:00 07:00 Intake Total 619 ml 950 ml Output Total 800 ml Balance 619 ml 150 ml Intake Oral 570 ml 50 ml IV Total 49 ml 900 ml Output Urine Total 800 ml # Voids 1 1 # Bowel Movements 3 3 Laboratory Tests 08/25/18 06:20: White Blood Count 14.2H, Red Blood Count 3.63L, Hemoglobin 11.6L, Hematocrit 33.9L, Mean Corpuscular Volume 93, Mean Corpuscular Hemoglobin 31.8H, Mean Corpuscular Hemoglobin Concent 34.1, Red Cell Distribution Width 12.2, Platelet Count 368, Mean Platelet Volume 6.0L, Neutrophils (%) (Auto) 80.9H, Lymphocytes (%) (Auto) 14.4L, Monocytes (%) (Auto) 4.0, Eosinophils (%) (Auto) 0.4, Basophils (%) (Auto) 0.3, Sodium Level 137, Potassium Level 3.8, Chloride Level 100, Carbon Dioxide Level 30, Anion Gap 7, Blood Urea Nitrogen 29H, Creatinine 1.3, Estimat Glomerular Filtration Rate , Glucose Level 110H, Calcium Level 8.6 Height (Feet): 5 Height (Inches): 5.00 Weight (Pounds): 123 General Appearance: alert, confused, agitated Raulito Avilez MD Aug 25, 2018 20:02
--- NOTE | 2018-08-26 10:25 | Discharge Summary ---
Discharge Summary Discharge Summary _ DATE OF ADMISSION: 08/20/2018 DATE OF DISCHARGE: 08/25/2018 CONSULTANTS: Dr. Kash Ortiz BRIEF HOSPITAL COURSE: Patient is an 83-year-old male, who presented with chief complaint of shortness of breath. Patient is a resident of [facility]. Patient symptoms started 08/19/2018. He became extremely short of breath. Paramedics were called, he was found to have oxygen saturation in the 80s. He has medical history significant for hypertension, atrial fibrillation, history of vascular disease, Alzheimer's dementia and hypercholesterolemia. On evaluation at ED, patient was saturating 90% on 15 L nonrebreather mask. Blood work showed leukocytosis, WBC 15, hemoglobin and hematocrit were stable. Creatinine was elevated to 3.2, BUN > 100. Lactic acid was elevated to 2.9. Troponin was negative, proBNP> 4000. Urinalysis with 14-16 WBC, 20-30 RBC, 3+ leukocyte esterase, negative nitrite. Chest x-ray showed no acute cardiopulmonary process. He was admitted for evaluation of sepsis, renal failure and dehydration. He was admitted to telemetry. He was given supplemental oxygenation. He was placed on respiratory treatments. He was given IV hydration. Renal function was monitored. Psychiatrist was consulted. Patient has episodes of agitation and has memory impairment. He was given Abilify every morning. He was assessed to lack capacity to make medical decisions. ID was consulted. Patient was given ceftriaxone. Urinalysis showed growth of Escherichia coli. Antibiotic was switched to Levaquin for coverage of COPD exacerbation and urine infection. Troponin levels were monitored. Tannery Worker was consulted. There was no indication for cardiac cath or ischemia evaluation per Tannery Worker. Echocardiogram done showed left ventricular ejection fraction of 45-50% with mild global hypokinesis. There was no aortic regurgitation, mild to moderate mitral regurgitation, mild tricuspid regurgitation and right ventricular systolic pressure of 30 mmHg. Anemia workup was done. Iron level was low,however, ferritin was greater than 2000. Unable to do CT angiogram due to kidney function. VQ scan showed no focal segmental or subsegmental perfusion defects. He came in with multiple decubiti ulcers. Surgery was called to evaluate for care and management. He was noted to have deep tissue pressure injury to the sacrum; right and left ischium; deep tissue pressure injury to the right and left heel. He was given wound care. He was placed on air-fluid mattress. He was advised frequent repositioning and off loading. He underwent swallow evaluation. Patient had moderately severe oropharyngeal dysphagia with increased oral transit time and oropharyngeal transit time. Long -term nonoral feeding was recommended, however, patient wants to eat and drink by mouth. For quality of life, he was recommended liquefied pured, like there are thick soup consistency with nectar thick liquids. Strict aspiration precaution and one-to-one feed. Blood culture did not isolate any growth. Creatinine normalized. He was eventually discharged back to assisted living. FINAL DIAGNOSES: Sepsis Acute renal failure Urinary tract infection with Escherichia coli Acute COPD exacerbation Dehydration Alzheimer's dementia Cerebrovascular disease Hypertension Atrial fibrillation Hypercholesterolemia Hypokalemia Hypomagnesemia Multiple pressure ulcers, as stated above, present on admission DISPOSITION: Patient was discharged to [facility]. DISCHARGE MEDICATIONS: Refer to Discharge Medication List. I have been assigned to dictate discharge summary on this account, and I was not involved in the patient's management. Liana Stephens NP Aug 26, 2018 10:25
== END 2018-08-25 14:50 | disposition home or self-care (01) | DRG 871 ==
LOC: EDBD 16:50 → EMR 20:13 → 2E 20:14 → EDBEDREQ 21:12
DX: A41.9 Sepsis, unspecified organism (principal); J96.01 Acute respiratory failure with hypoxia; N17.9 Acute kidney failure, unspecified; N39.0 Urinary tract infection, site not specified; J44.1 Chronic obstructive pulmonary disease with (acute) exacerbation; I10 Essential (primary) hypertension; G30.9 Alzheimer's disease, unspecified; F02.80 Dementia in other diseases classified elsewhere, unspecified severity, without behavioral disturbance, psychotic disturbance, mood disturbance, and anxiety; I48.91 Unspecified atrial fibrillation; E78.00 Pure hypercholesterolemia, unspecified; B96.20 Unspecified Escherichia coli [E. coli] as the cause of diseases classified elsewhere; E83.42 Hypomagnesemia; E87.6 Hypokalemia; Z86.73 Personal history of transient ischemic attack (TIA), and cerebral infarction without residual deficits; L89.150 Pressure ulcer of sacral region, unstageable; L89.620 Pressure ulcer of left heel, unstageable; L89.610 Pressure ulcer of right heel, unstageable; L89.319 Pressure ulcer of right buttock, unspecified stage; L89.329 Pressure ulcer of left buttock, unspecified stage
CPT/HCPCS: 36415; 36600; 71045; 74230; 78579; 78580; 80048; 80053; 80061; 81003; 82607; 82728; 82746; 82803; 82962; 83036; 83540; 83550; 83605; 83735; 83880; 84100; 84443; 84484; 84550; 85025; 85651; 86140; 87040; 87081; 87086; 87181; 93005; 93306; 94640; 96360; 96372; 99285; A9503